=== PATIENT | male | born 1935 | race Caucasian/White ===

== ENCOUNTER 2016-10-30 09:29 | Outpatient (CLI) | payer MEDICARE, OTHER ==
[2016-10-30] MEDS ORDERED: REGADENOSON 0.4 MG/5 ML SYRINGE IVP ONE (14:45)
== END 2016-10-30 09:30 | disposition home or self-care (01) ==
DX: I48.91 Unspecified atrial fibrillation (principal); I49.3 Ventricular premature depolarization; I65.23 Occlusion and stenosis of bilateral carotid arteries; I25.118 Atherosclerotic heart disease of native coronary artery with other forms of angina pectoris; I77.9 Disorder of arteries and arterioles, unspecified; Z95.0 Presence of cardiac pacemaker
CPT/HCPCS: 78452; 93017; 93880; A9500; J2785

== ENCOUNTER 2017-02-11 15:05 | Outpatient (CLI) | payer MEDICARE, OTHER ==
[2017-02-11 19:18] LABS: CALCIUM 8.7 mg/dL (8.5-10.3); CREATININE 1.1 mg/dL (0.6-1.2); POTASSIUM 4.6 mmol/L (3.5-5.0)
== END 2017-02-11 15:06 | disposition home or self-care (01) ==
LOC: LAB.N 15:05
DX: E87.5 Hyperkalemia (principal)
CPT/HCPCS: 36415; 80048

== ENCOUNTER 2017-05-29 11:18 | Outpatient (CLI) | payer MEDICARE, OTHER | END 2017-05-29 11:19 | disposition critical access hospital (66) | LOC: EMS 11:18 | PROVIDERS: ATTEND Surgery | DX: M25.551 Pain in right hip (principal); W10.9XXA Fall (on) (from) unspecified stairs and steps, initial encounter | CPT/HCPCS: A0425; A0429 ==

== ENCOUNTER 2017-05-29 11:41 | Inpatient (IN) | payer MEDICARE, OTHER ==
[2017-05-29] MEDS ORDERED: MORPHINE 2 MG/ML SYRINGE IVP STA ×3 (11:48→13:37)
[2017-05-29] MEDS ORDERED: SODIUM CHLORIDE 0.9% 1,000 ML IV ONE (11:48)
--- NOTE | 2017-05-29 12:58 | ED Physician Documentation ---
History of Present Illness - Stated complaint Stated Complaint: GROIN PAIN SP FALL - Chief complaint Chief Complaint: Trauma Hd/Nk - Additonal information Additional information: hx from pt 82 male fell down cement stairs at [employer] yesterday hit head but no LOC PÉREZ or neck pain is on plavix mostly hurt R hip friends gave him a walker and he was able to get home but today pain is too severe to walk Review of Systems Constitutional: denies: Fever Cardiac: denies: Chest pain / pressure Respiratory: denies: Dyspnea, Cough GI: denies: Abdominal Pain Musculoskeletal: reports: Extremity pain. denies: Neck pain Neurologic: reports: Head injury. denies: Focal weakness, Numbness, Headache Endocrine: reports: Easy bruising / bleeding (plavix) Immunocompromised: denies: Immunocompromised PD PAST MEDICAL HISTORY - Past Medical History Cardiovascular: Hypertension, High cholesterol, Coronary artery disease, Arrhythmia GI: GERD, Ulcers HEENT: Chronic hearing loss - Past Surgical History Past Surgical History: Yes General: Cholecystectomy Cardiovascular: Pacemaker, AICD, Angioplasty, Other - Present Medications Home Medications: Ambulatory Orders Medication Instructions Recorded Confirmed Amiodarone HCl [Pacerone] 100 mg PO DAILY 10/22/13 05/29/17 Aspirin [Donald] 325 mg PO DAILY 10/22/13 05/29/17 Esomeprazole Magnesium [Nexium] 40 mg PO DAILY 10/22/13 05/29/17 Finasteride 5 mg PO DAILY 10/22/13 05/29/17 Isosorbide Mononitrate ER [Imdur] 50 mg PO DAILY 10/22/13 05/29/17 Metoprolol Tartrate 50 mg PO DAILY 10/22/13 05/29/17 Simvastatin 40 mg PO DAILY 10/22/13 05/29/17 oxyCODONE [Roxicodone] 10 mg PO DAILY PRN 10/22/13 05/29/17 oxyCODONE ER [OxyCONTIN] 10 mg PO DAILY 05/29/17 05/29/17 - Allergies Allergies/Adverse Reactions: Allergies Allergy/AdvReac Type Severity Reaction Status Date / Time No Known Drug Allergies Allergy Verified 10/22/13 10:07 - Social History Does the pt smoke?: No Smoking Status: Never smoker Does the pt drink ETOH?: No Does the pt have substance abuse?: No - Immunizations Immunizations are current?: Yes - POLST Patient has POLST: Yes PD ED PE NORMAL - Vitals Vital signs reviewed: Yes - General General: Alert and oriented X 3 - HEENT HEENT: Atraumatic - Neck Neck: No bony TTP - Cardiac Cardiac: RRR - Respiratory Respiratory: No respiratory distress, Clear bilaterally - Abdomen Abdomen: Soft, Non tender - Derm Derm: Normal color - Extremities Extremities: Other (R hip externall roatated not short, TTP medial and greater troch, MSV intact) - Neuro Neuro: Alert and oriented X 3 Eye Opening: Spontaneous Motor: Obeys Commands Verbal: Oriented GCS Score: 15 Results - Vitals Vitals: Vital Signs - 24 hr 05/29/17 05/29/17 11:45 12:14 Temperature 37.0 C 37 C Heart Rate 72 66 Respiratory 16 20 Rate Blood Pressure 170/68 H 166/62 H O2 Saturation 91 L 97 Oxygen O2 Source Nasal cannula - Labs Labs: Laboratory Tests 05/29/17 05/29/17 05/29/17 13:20 13:20 13:20 WBC 11.8 H RBC 4.72 Hgb 14.1 Hct 41.8 L MCV 88.5 MCH 29.9 MCHC 33.8 RDW 13.6 Plt Count 200 MPV 7.4 Neut # 10.1 H Lymph # 0.7 L [place] # 0.7 Eos # 0.2 Baso # 0.0 Absolute Nucleated RBC 0.00 Nucleated RBC % 0.0 PT INR Sodium 136 Potassium 3.9 Chloride 102 Carbon Dioxide 25 Anion Gap 9.0 BUN 17 Creatinine 1.0 Estimated GFR (MDRD) 72 L Glucose 119 H Calcium 8.6 Blood Type A NEGATIVE Antibody Screen NEGATIVE 05/29/17 13:20 WBC RBC Hgb Hct MCV MCH MCHC RDW Plt Count MPV Neut # Lymph # [place] # Eos # Baso # Absolute Nucleated RBC Nucleated RBC % PT 13.1 H INR 1.2 Sodium Potassium Chloride Carbon Dioxide Anion Gap BUN Creatinine Estimated GFR (MDRD) Glucose Calcium Blood Type Antibody Screen - Rads (name of study) hip Radiology: See rad report (R subcapital fx) CTH Radiology: See rad report (no acute) CTCS Radiology: See rad report (no fx) PD MEDICAL DECISION MAKING - ED course ED course: pt with sig cardiac hx s/p fall with hip fx paged hospitalist at 215 paged ortho at 235 hospitalist to admit with ortho consult advised ortho of plavix Departure - Departure Disposition: 66 [facility] DC/Xfer Clinical Impression: Hip fracture Qualifiers: Encounter type: initial encounter Fracture type: closed Laterality: right Qualified Code(s): S72.001A - Fracture of unspecified part of neck of right femur, initial encounter for closed fracture Discharge Date/Time: 05/29/17 16:06
[2017-05-29 13:34] LABS: BASOPHILS % (AUTO) 0.3 %; EOSINOPHILS # (AUTO) 0.2 10^3/uL (0.0-0.7); EOSINOPHILS % (AUTO) 1.9 %; HGB - HEMOGLOBIN 14.1 g/dL (14.0-18.0); LYMPHOCYTES # (AUTO) 0.7 10^3/uL (1.5-3.5); LYMPHOCYTES % (AUTO) 6.1 %; MEAN CORPUSCULAR HEMOGLOBIN 29.9 pg (27.0-31.0); MEAN CORPUSCULAR HGB CONC 33.8 g/dL (32.0-36.0); MEAN CORPUSCULAR VOLUME 88.5 fL (80.0-94.0); MEAN PLATELET VOLUME 7.4 fL (7.4-11.4); MONOCYTES # (AUTO) 0.7 10^3/uL (0.0-1.0); MONOCYTES % (AUTO) 6.1 %; NEUTROPHILS # (AUTO) 10.1 10^3/uL (1.5-6.6); NEUTROPHILS % (AUTO) 85.6 %; PLT - PLATELET COUNT 200 10^3/uL (130-450); RED BLOOD COUNT 4.72 10^6/uL (4.70-6.10); RED CELL DISTRIBUTION WIDTH 13.6 % (12.0-15.0); WHITE BLOOD COUNT 11.8 x10^3/uL (4.8-10.8)
[2017-05-29 13:48] LABS: CALCIUM 8.6 mg/dL (8.5-10.3)
--- NOTE | 2017-05-29 14:04 | XRAY Report ---
EXAM: RIGHT HIP AND PELVIS RADIOGRAPHY EXAM DATE: 05/29/2017 01:44 PM. HISTORY: Fall R hip pain. COMPARISONS: None. TECHNIQUE: 1 view of the pelvis and 1 view of the hip. FINDINGS: Bones: Impacted subcapital fracture right femoral neck. Otherwise unremarkable. Joints: Hip joint space is well-preserved with mild marginal lipping. Unremarkable SI joints and pubi c symphysis. Soft Tissues: Vascular calcifications. IMPRESSION: Right subcapital fracture. [facility] Referring Provider Line: [phone] SITE ID: [id number]
--- NOTE | 2017-05-29 14:06 | XRAY Preliminary Report ---
Exam: XR CHEST 1 VIEW IMPRESSION: Cardiovascular fullness. No definite acute disease. [facility] SITE ID: [id number]
--- NOTE | 2017-05-29 14:06 | XRAY Report ---
EXAM: CHEST RADIOGRAPHY EXAM DATE: 05/29/2017 01:44 PM. CLINICAL HISTORY: Preop. COMPARISON: 12/12/2011. TECHNIQUE: 1 view. FINDINGS: Lungs/Pleura: Mildly hyperexpanded. Diffuse prominence of lung markings. Atelectasis or scarring in r ight midlung zone laterally. No definite localized infiltrate, consolidation, effusion, or pneumothor ax. Mediastinum: Moderate cardiomegaly, probably unchanged. Diffuse vascular fullness, at least partially related to supine technique. Other: Indwelling defibrillator on the left with intact leads. Degenerative changes. IMPRESSION: Cardiovascular fullness. No definite acute disease. [facility] Referring Provider Line: [phone] SITE ID: [id number]
--- NOTE | 2017-05-29 14:28 | CT Report ---
EXAM: CT HEAD EXAM DATE: 05/29/2017 01:54 PM. CLINICAL HISTORY: Fall on plavix. COMPARISON: None. TECHNIQUE: Multiaxial CT images were obtained from the foramen magnum to the vertex. Reformats: Coron al. IV contrast: None. In accordance with CT protocol optimization, one or more of the following dose reduction techniques w ere utilized for this exam: automated exposure control, adjustment of mA and/or KV based on patient s ize, or use of iterative reconstructive technique. FINDINGS: Parenchyma: No intraparenchymal hemorrhage. No evidence of mass, midline shift, or CT findings of inf arction. Merino-white differentiation is distinct. There are periventricular and deep white matter low attenuating foci consistent with chronic microvascular angiopathic changes. Extraaxial Spaces: Normal for age. No subdural or epidural collections identified. Ventricles: There is parenchymal volume loss and ex vacuo dilation of ventricles. Sinuses and Orbits: Imaged paranasal sinuses, orbits, and mastoids show no significant abnormality. Bones: No evidence of fracture or calvarial defect. IMPRESSION: No evidence of acute intracranial process or calvarial fracture [facility] Referring Provider Line: [phone] SITE ID: [id number]
--- NOTE | 2017-05-29 14:28 | CT Preliminary Report ---
Exam: CT HEAD W/O IMPRESSION: No evidence of acute intracranial process or calvarial fracture [facility] SITE ID: [id number]
--- NOTE | 2017-05-29 14:33 | CT Report ---
EXAM: CT CERVICAL SPINE WITHOUT CONTRAST DATE: 05/29/2017 02:02 PM. HISTORY: Fall HI distracting injury. COMPARISONS: None. TECHNIQUE: Thin-section axial images were acquired of the cervical spine without contrast. Post-proce ssing: Coronal and sagittal reformats. Other: None. In accordance with CT protocol optimization, one or more of the following dose reduction techniques w ere utilized for this exam: automated exposure control, adjustment of mA and/or KV based on patient s ize, or use of iterative reconstructive technique. FINDINGS: Alignment: No scoliosis or spondylolisthesis. Bones: No fracture or bone lesion. Interspace Levels/Facets: C1-C2: Unremarkable. C2-C3: Moderate anterior osteophytes. C3-C4: Osteophytes cause narrowing of the bony neural foramina, mild right and moderate on the left. C4-C5: There is mild to moderate disk space narrowing. There are moderate to marked anterior osteophy derrek. Osteophytes narrow the bony neural foramina, moderate to severe on the right and moderate on the left. C5-C6: There is moderate disk space narrowing with moderate to marked anterior osteophytes. Osteophyt es cause moderate narrowing of the bony neural foramina. C6-C7: Osteophytes cause mild narrowing of the bony neural foramina. C7-T1: There are moderate to marked anterior osteophytes. Musculature: Normal. No fatty atrophy. Other: The paravertebral and prevertebral soft tissues are unremarkable. The lung apices are not imag ed. IMPRESSION: Moderate to severe cervical spondylosis. No evidence of acute fracture. [facility] Referring Provider Line: [phone] SITE ID: [id number]
[2017-05-29] MEDS ORDERED: PROCHLORPERAZINE 10 MG/2 ML VIAL IVP PRN (14:47)
[2017-05-29] MEDS ORDERED: ACETAMINOPHEN 325 MG TABLET PO PRN (14:47)
[2017-05-29] MEDS ORDERED: SODIUM CHLORIDE FLUSH 0.9% 10 ML SYRINGE IVP PRN (14:47)
[2017-05-29] MEDS ORDERED: ZOLPIDEM 5 MG TABLET PO PRN (14:47)
[2017-05-29] MEDS: HYDROmorphone 1 MG/ML SYRINGE IVP PRN ×3 (16:08→21:18)
[2017-05-29] MEDS: DEXTROSE 5%-0.45% NACL 1,000 ML IV SCH (16:19)
[2017-05-29 18:25] LABS: INR 1.2 (0.8-1.2); PT - PROTHROMBIN TIME 13.1 secs (9.9-12.6)
[2017-05-29] MEDS: HYDROcod/ACETAM 5/325 MG TABLET PO PRN (21:17)
[2017-05-29] MEDS: ATORVASTATIN 40 MG TABLET PO SCH (21:17)
[2017-05-29] MEDS: SODIUM CHLORIDE FLUSH 0.9% 10 ML SYRINGE IVP SCH (21:18)
[2017-05-30] MEDS: HYDROcod/ACETAM 5/325 MG TABLET PO PRN ×3 (01:13→21:02)
[2017-05-30] MEDS: SODIUM CHLORIDE FLUSH 0.9% 10 ML SYRINGE IVP SCH ×3 (05:44→22:51)
[2017-05-30] MEDS ORDERED: ceFAZolin 1 GM in SODIUM CHLORIDE 0.9% 100ML 100 ML IV SCH (06:00)
[2017-05-30] MEDS: HYDROmorphone 1 MG/ML SYRINGE IVP PRN (06:25)
[2017-05-30] MEDS: METOPROLOL TARTRATE 50 MG TABLET PO SCH (07:58)
[2017-05-30] MEDS ORDERED: SODIUM CHLORIDE 0.9% 1,000 ML IV ONE (08:11)
[2017-05-30] MEDS ORDERED: BUPIVACAINE 0.25%-EPI 1:200000 PF 30 ML VIAL SUBQ ONE (08:55)
[2017-05-30] MEDS ORDERED: KETOROLAC 30 MG/ML VIAL IVP ONE ×2 (08:57→09:00)
[2017-05-30] MEDS ORDERED: MORPHINE PF 10 MG/10 ML AMP SUBQ ONE (08:59)
[2017-05-30] MEDS ORDERED: PROPOFOL 200 MG/20 ML VIAL IVP ONE (09:00)
[2017-05-30] MEDS ORDERED: TRANEXAMIC ACID 1,000 MG/10 ML VIAL IV ONE (09:00)
[2017-05-30] MEDS ORDERED: KETAMINE 500 MG/10 ML VIAL IVP ONE (09:00)
[2017-05-30] MEDS ORDERED: ceFAZolin 1 GM VIAL IV ONE (09:00)
[2017-05-30] MEDS ORDERED: PHENYLEPHRINE 50 MG/5 ML VIAL IV ONE (09:00)
[2017-05-30] MEDS ORDERED: MIDAZOLAM 2 MG/2 ML VIAL IVP ONE (09:00)
[2017-05-30] MEDS ORDERED: MORPHINE 10 MG/ML VIAL IVP ONE (09:00)
[2017-05-30] MEDS ORDERED: LIDOCAINE-MPF 2% 5 ML VIAL IM ONE (09:00)
[2017-05-30] MEDS ORDERED: ENOXAPARIN 40 MG/0.4 ML SYRINGE SUBQ SCH (09:00)
[2017-05-30] MEDS ORDERED: ePHEDrine 50 MG/ML AMP IVP ONE (09:00)
[2017-05-30] MEDS ORDERED: SODIUM CHLORIDE 0.9% 10 ML VIAL IV ONE (09:00)
[2017-05-30] MEDS ORDERED: ONDANSETRON 4 MG/2 ML VIAL IVP PRN (10:10)
[2017-05-30] MEDS ORDERED: ACETAMINOPHEN 325 MG TABLET PO PRN (10:10)
[2017-05-30] MEDS ORDERED: SODIUM CHLORIDE FLUSH 0.9% 10 ML SYRINGE IVP PRN (10:10)
[2017-05-30] MEDS ORDERED: ACETAMINOPHEN 1,000 MG/100 ML 100 ML IV PRN (10:10)
[2017-05-30] MEDS ORDERED: PROCHLORPERAZINE 10 MG/2 ML VIAL IVP PRN (10:10)
--- NOTE | 2017-05-30 10:26 | POST OP PROGRESS NOTE ---
Subjective - General Admit Date: 05/29/17 Procedure Date: 05/30/17 Post Op Days: 0 Procedure Performed: right hip in situ cannulated screw fixation of valgus impacted femoral neck - Review of Systems Wound/Incisions: positive: Dressing dry and intact - Other Other Information/Narrative: OPERATIVE REPORT PATIENT NAME: Jorge Henry MR#: [id number] Date of Surgery: 05/30/2017 PREOPERATIVE DIAGNOSIS: Closed, stable Right hip femoral neck fracture, pathologic secondary to osteoporosis. POSTOPERATIVE DIAGNOSIS: Same. PROCEDURE: 1. Right hip fluoroscopic exam under anesthesia demonstrating stable femoral neck fracture. 2. In situ percutaneous pinning of femoral neck fracture. POSTOPERATIVE PLAN: 1. WEIGHTBEARING: Weight bearing as tolerated (WBAT) 2. NO NEED FOR HIP DISLOCATION PRECAUTIONS 3. DVT PROPHYLAXIS: Lovenox 40mg sc daily x 14days, followed by ECASA 325mg po daily [id number] (after this period ECASA should be discontinued or the patient should go back to the normal pre-operative dose). SURGEON: Joe Carver M.D. BULL FIDDLE PLAYER: none ANESTHESIA: spinal ESTIMATED BLOOD LOSS: 15mL. Specimens: None. DRAIN: none. COMPLICATIONS: None. IMPLANTS USED: Synthes 7.3mm cannulated partially threaded screws x3. Lengths were as follows : inferior-central screw: 90mm, posterior-superior screw: 85mm, and anterior- superior screw: 85mm. INDICATIONS: The patient is an 82 year old male with the above diagnosis. The alternatives, indications, benefits and possible risks of hip screw fixation and other surgeries, as previously detailed, were explained to the patient and family at length who indicated understanding of all of the above and wished to proceed. The option of further non-operative care was discussed. The possibility of linda -operative complications leading to loss of fixation, disability and was explained. All questions were answered and no guarantees with respect to final outcome were made. FINDINGS: Stable femoral neck fracture, intact acetabulum. Decreased bone quality was noted intraoperatively. Satisfactory purchase of the screws was achieved. DESCRIPTION OF PROCEDURE: After patient was brought in the operating room, surgical briefing was carried out in accordance with hospital policy with all members of the surgical team, patient, chart, x-rays and marking in agreement as to surgical site and plan. Prophylactic antibiotic was given, and anesthesia was satisfactorily achieved. The patient was placed on the fracture table in the supine position, and the uninjured lower extremity placed in a well-padded well-leg shields with the hip 70 degrees flexed, 20 degrees abducted and 20 degrees externally rotated. The foot and ankle of the injured extremity were well-padded and placed in the traction device. Stability of the fracture was confirmed by applying various combinations of axial traction, abduction, adduction, and rotation under fluoroscopic guidance (no movement of the fracture was seen). The lateral surface of the hip was then sterilely prepped and draped from below the knee to the umibillicus using a vertical isolation drape. Under fluroscopic visualization, the trajectory for the pins was determined and marked on the drapes with a pen. Using AP and lateral fluoroscopic imaging, a guide pin was introduced through the skin into the lateral femur just below the vastus ridge, along the inferior aspect of the femoral neck, and across the fracture site into the femoral head. Two additional percutaneous pins were placed parallel to the first, one the posterosuperior aspect of the neck and another anteriorly and superiorly. The placement was verified in both AP and lateral projections. The guide pins were measured according to the digital technician' s instructions. Next the self-drilling, self-tapping, cannulated, partially- threaded screws were placed. Screw position was verified with orthogonal fluoroscopic projections as well as with continuous fluoro to confirm that the screws did not penetrate the joint. The small stab incisions were irrigated with copious amounts of saline and then closed with 2-0 Prolene. A sterile nonadhesive bulky compressive dressing was applied. At the termination of the procedure, the patient's toes were pink with brisk capillary refill. Final sponge and needle counts as reported by the nursing staff were even. After the anesthesia team gave the okay, the patient was transferred to the recovery room awake, stable, following commands, in no apparent distress. Joe Carver MD
[2017-05-30] MEDS: ASPIRIN 325 MG TABLET PO SCH (11:34)
[2017-05-30] MEDS: ISOSORBIDE MONONITRATE ER 30 MG TABLET PO SCH (11:34)
[2017-05-30] MEDS: DEXTROSE 5%-0.45% NACL 1,000 ML IV SCH ×2 (11:35→23:43)
[2017-05-30] MEDS: FINASTERIDE 5 MG TABLET PO SCH (11:35)
[2017-05-30] MEDS: LISINOPRIL 5 MG TABLET PO SCH (11:35)
[2017-05-30] MEDS: FAMOTIDINE 20 MG TABLET PO SCH (11:35)
[2017-05-30] MEDS: POLYETHYLENE GLYCOL 3350 17 GM PACKET PO SCH (11:43)
[2017-05-30] MEDS: AMIODARONE 200 MG TABLET PO SCH (11:43)
[2017-05-30] MEDS ORDERED: SODIUM CHLORIDE FLUSH 0.9% 10 ML SYRINGE IVP SCH (14:00)
--- NOTE | 2017-05-30 15:28 | XRAY Preliminary Report ---
Exam: FL OR C-ARM PROCEDURE IMPRESSION: Fluoroscopic guidance provided for percutaneous pinning right hip. Total fluoroscopy time : 44 seconds. Number of images: 0. [facility] SITE ID: [id number]
--- NOTE | 2017-05-30 15:29 | XRAY Report ---
EXAM: FLUOROSCOPIC GUIDANCE EXAM DATE: 05/30/2017 10:03 AM. CLINICAL HISTORY: Percutaneous pinning right hip. COMPARISON: None. FINDINGS: Please refer to impression IMPRESSION: Fluoroscopic guidance provided for percutaneous pinning right hip. Total fluoroscopy time : 44 seconds. Number of images: 0. [facility] Referring Provider Line: [phone] SITE ID: [id number]
[2017-05-30] MEDS: ceFAZolin 2 GM/50 ML 2 GM/50 ML BAG IV SCH ×2 (16:05→23:44)
--- NOTE | 2017-05-30 17:46 | PROVIDER PROGRESS NOTE ---
Assessment/Plan - Problem List (1) Subcapital fracture of right hip Qualifiers: Encounter type: subsequent encounter Fracture type: closed Assessment/Plan: Patient is POD# 0 s/p percutaneous pinning of the right hip Pain controlled Seen by PT today and had a lot of trouble needs to go up 2 stairs at home PT is recommending SNF currently but will re-assess tomorrow (2) Hypertension Qualifiers: Hypertension type: essential hypertension Qualified Code(s): I10 - Essential (primary) hypertension Assessment/Plan: BP well controlled Continue home meds Stable (3) BPH (benign prostatic hyperplasia) Assessment/Plan: Continued home meds Stable (4) GERD (gastroesophageal reflux disease) Assessment/Plan: ON PPI No symptoms Stable (5) Hyperlipidemia Assessment/Plan: Continued home dose of statin Stable (6) Atrial fibrillation Qualifiers: Atrial fibrillation type: chronic Qualified Code(s): I48.2 - Chronic atrial fibrillation Assessment/Plan: Patient has AICD with pacer Patient on metoprolol will continue Not on coumadin (7) CAD (coronary artery disease) Assessment/Plan: On plavix, metoprolol and statin Stable Echo shows normal EF Stress test less than 6 months ago was normal - Current Meds Current Meds: Current Medications Generic Name Dose Route Start Last Admin Trade Name Freq PRN Reason Stop Dose Admin Acetaminophen/Hydrocodone Bitart 1 tab 05/29/17 14:47 05/30/17 16:10 [place] 5/325 PO 1 tab Q4HR PRN Administration Pain 5 to 7 Amiodarone HCl 100 mg 05/30/17 09:00 05/30/17 11:43 Pacerone PO 100 mg DAILY OMAR Administration Aspirin 325 mg 05/30/17 08:00 05/30/17 11:34 Donald PO 325 mg DAILYWM OMAR Administration Atorvastatin Calcium 40 mg 05/29/17 21:00 05/29/17 21:17 Lipitor PO 40 mg QPM OMAR Administration Famotidine 20 mg 05/30/17 09:00 05/30/17 11:35 Pepcid PO 20 mg DAILY OMAR Administration Finasteride 5 mg 05/30/17 09:00 05/30/17 11:35 Proscar PO 5 mg DAILY OMAR Administration Hydromorphone HCl 0.5 mg 05/29/17 14:47 05/30/17 06:25 Dilaudid Inj Syringe IVP 0.5 mg Q2H PRN Administration Pain 8 to 10 Dextrose/Sodium Chloride 1,000 mls @ 30 mls/hr 05/29/17 16:00 05/30/17 11:35 D5.45ns IV 30 mls/hr .[id number] OMAR Administration Cefazolin Sodium/Dextrose 2 gm in 50 mls @ 100 mls/hr 05/30/17 16:00 16:48 Ancef 2 Gm/50 Ml IV 05/31/17 00:29 Infused Q8H OMAR Infusion Isosorbide Mononitrate 30 mg 05/30/17 09:00 05/30/17 11:34 Imdur PO 30 mg DAILY OMAR Administration Lisinopril 10 mg 05/30/17 09:00 05/30/17 11:35 Zestril PO 10 mg DAILY OMAR Administration Metoprolol Tartrate 50 mg 05/30/17 09:00 05/30/17 07:58 Lopressor PO 50 mg DAILY OMAR Administration Polyethylene Glycol 17 gm 05/30/17 09:00 05/30/17 11:43 Miralax PO 17 gm DAILY OMAR Administration Sodium Chloride 10 ml 05/29/17 22:00 05/30/17 11:44 Normal Saline Flush 0.9% IVP 10 ml Q8HR MOAR Administration - Lab Result Lab results reviewed: Yes Fish Bone Diagrams: 05/29/17 13:20 05/29/17 13:20 - Diagnostic Imaging Results Diagnostic Imaging Results: Final report reviewed - Additional Planning Condition/Complexity: Stable My Orders: My Active Orders 05/30/17 Evaluate and Treat PT [PT] Routine Consult/Specialty: Other Plan Discussed with:: Patient, Family Time Spent: 31-60 minutes Subjective - Subjective Patient Reports: Pain (Right hip improved) Nursing Reports: No Complaints Objective Vital Signs: Vital Signs - 24 hr 05/29/17 05/30/17 05/30/17 19:47 00:43 06:00 Temperature 36.8 C 36.7 C 36.4 C L Heart Rate [ 71 72 71 Brachial] Heart Rate [ Supine] Respiratory 18 16 18 Rate Blood Pressure 164/52 H 149/50 H 170/70 H [Right Brachial artery] Blood Pressure [Supine] O2 Saturation 94 95 94 05/30/17 05/30/17 05/30/17 06:42 08:08 10:00 Temperature 36.1 C L Heart Rate [ 71 Brachial] Heart Rate [ Supine] Respiratory 22 Rate Blood Pressure 153/55 H 156/116 H [Right Brachial artery] Blood Pressure [Supine] O2 Saturation 93 95 05/30/17 05/30/17 05/30/17 10:05 10:10 10:15 Temperature Heart Rate [ Brachial] Heart Rate [ Supine] Respiratory Rate Blood Pressure [Right Brachial artery] Blood Pressure [Supine] O2 Saturation 96 95 97 05/30/17 05/30/17 05/30/17 10:22 10:35 11:18 Temperature 36.2 C L 36.4 C L Heart Rate [ 61 60 Brachial] Heart Rate [ Supine] Respiratory 16 16 Rate Blood Pressure 155/49 H 158/57 H [Right Brachial artery] Blood Pressure [Supine] O2 Saturation 95 94 94 05/30/17 05/30/17 05/30/17 11:40 12:40 12:59 Temperature 36.2 C L 36.4 C L Heart Rate [ 60 61 Brachial] Heart Rate [ 62 Supine] Respiratory 18 16 Rate Blood Pressure 152/56 H 118/41 L [Right Brachial artery] Blood Pressure 152/82 H [Supine] O2 Saturation 96 94 05/30/17 15:59 Temperature 36.7 C Heart Rate [ 67 Brachial] Heart Rate [ Supine] Respiratory 16 Rate Blood Pressure 140/51 H [Right Brachial artery] Blood Pressure [Supine] O2 Saturation 92 Oxygen O2 Source Nasal cannula I&O (Last 24 Hrs): Intake and Output Totals x24h 05/28/17 05/29/17 05/30/17 23:59 23:59 23:59 Intake Total 740 1910.5 Output Total 550 700 Balance 190 1210.5 General: Alert, Oriented x3, Cooperative, No acute distress HEENT: Atraumatic, PERRLA, EOMI, Mucous membr. moist/pink Neck: Supple, No JVD, No thyromegaly, +2 carotid pulse wo bruit, No LAD Lymphatic: no adenopathy Neuro: Alert, Non Focal, CN 2-12 Grossly Intact, Oriented Times 3 Cardiovascular: Regular rate, No murmurs Respiratory: Chest non-tender, No respiratory distress, Breath sounds nml Abdomen: Normal bowel sounds, Soft, No tenderness, No hepatospenomegaly Extremities: No clubbing, No cyanosis, No edema, Normal pulses, Other (Right hip swelling, improved ROM) Skin: No rashes, No breakdown - Results Results: Laboratory Results WBC 11.8 x10^3/uL (4.8-10.8) H 05/29/17 13:20 RBC 4.72 10^6/uL (4.70-6.10) 05/29/17 13:20 Hgb 14.1 g/dL (14.0-18.0) 05/29/17 13:20 Hct 41.8 % (42.0-52.0) L 05/29/17 13:20 MCV 88.5 fL (80.0-94.0) 05/29/17 13:20 MCH 29.9 pg (27.0-31.0) 05/29/17 13:20 MCHC 33.8 g/dL (32.0-36.0) 05/29/17 13:20 RDW 13.6 % (12.0-15.0) 05/29/17 13:20 Plt Count 200 10^3/uL (130-450) 05/29/17 13:20 MPV 7.4 fL (7.4-11.4) 05/29/17 13:20 Neut # 10.1 10^3/uL (1.5-6.6) H 05/29/17 13:20 Lymph # 0.7 10^3/uL (1.5-3.5) L 05/29/17 13:20 [place] # 0.7 10^3/uL (0.0-1.0) 05/29/17 13:20 Eos # 0.2 10^3/uL (0.0-0.7) 05/29/17 13:20 Baso # 0.0 10^3/uL (0.0-0.1) 05/29/17 13:20 Absolute Nucleated RBC 0.00 x10^3/uL 05/29/17 13:20 Nucleated RBC % 0.0 /100WBC 05/29/17 13:20 PT 13.1 secs (9.9-12.6) H 05/29/17 13:20 INR 1.2 (0.8-1.2) 05/29/17 13:20 Sodium 136 mmol/L (135-145) 05/29/17 13:20 Potassium 3.9 mmol/L (3.5-5.0) 05/29/17 13:20 Chloride 102 mmol/L (101-111) 05/29/17 13:20 Carbon Dioxide 25 mmol/L (21-32) 05/29/17 13:20 Anion Gap 9.0 (6-13) 05/29/17 13:20 BUN 17 mg/dL (6-20) 05/29/17 13:20 Creatinine 1.0 mg/dL (0.6-1.2) 05/29/17 13:20 Estimated GFR (MDRD) 72 (>89) L 05/29/17 13:20 Glucose 119 mg/dL (70-100) H 05/29/17 13:20 Calcium 8.6 mg/dL (8.5-10.3) 05/29/17 13:20 Blood Type A NEGATIVE 05/29/17 13:20 Antibody Screen NEGATIVE 05/29/17 13:20
--- NOTE | 2017-05-30 17:57 | XRAY Report ---
EXAM: RIGHT HIP RADIOGRAPHY EXAM DATE: 05/30/2017 10:02 AM. CLINICAL HISTORY: RIGHT HIP PINNING. COMPARISON: 05/29/2017. TECHNIQUE: 2 views. FINDINGS: Please refer to impression IMPRESSION: Two Intraoperative images during right hip surgery showing placement of 3 cannulated femo ral neck screws. [facility] Referring Provider Line: [phone] SITE ID: [id number]
[2017-05-30] MEDS: ATORVASTATIN 40 MG TABLET PO SCH (21:02)
[2017-05-30] MEDS: ENOXAPARIN 40 MG/0.4 ML SYRINGE SUBQ SCH (21:02)
[2017-05-31] MEDS: HYDROcod/ACETAM 5/325 MG TABLET PO PRN ×3 (03:10→19:53)
[2017-05-31] MEDS: SODIUM CHLORIDE FLUSH 0.9% 10 ML SYRINGE IVP SCH ×3 (05:51→20:23)
[2017-05-31 07:16] LABS: BASOPHILS % (AUTO) 0.3 %; EOSINOPHILS # (AUTO) 0.2 10^3/uL (0.0-0.7); EOSINOPHILS % (AUTO) 1.9 %; HGB - HEMOGLOBIN 12.1 g/dL (14.0-18.0); LYMPHOCYTES # (AUTO) 0.8 10^3/uL (1.5-3.5); LYMPHOCYTES % (AUTO) 8.6 %; MEAN CORPUSCULAR HEMOGLOBIN 30.2 pg (27.0-31.0); MEAN CORPUSCULAR HGB CONC 34.2 g/dL (32.0-36.0); MEAN CORPUSCULAR VOLUME 88.3 fL (80.0-94.0); MEAN PLATELET VOLUME 7.4 fL (7.4-11.4); MONOCYTES # (AUTO) 0.7 10^3/uL (0.0-1.0); MONOCYTES % (AUTO) 7.4 %; NEUTROPHILS # (AUTO) 7.7 10^3/uL (1.5-6.6); NEUTROPHILS % (AUTO) 81.8 %; PLT - PLATELET COUNT 172 10^3/uL (130-450); RED BLOOD COUNT 4.02 10^6/uL (4.70-6.10); RED CELL DISTRIBUTION WIDTH 13.7 % (12.0-15.0); WHITE BLOOD COUNT 9.5 x10^3/uL (4.8-10.8)
[2017-05-31 07:29] LABS: ALBUMIN 2.8 g/dL (3.2-5.5); ALBUMIN/GLOBULIN RATIO 1.1 (1.0-2.2); ALKALINE PHOSPHATASE 51 IU/L (42-121); ALT ALANINE AMINOTRANSFERASE 16 IU/L (10-60); AST ASPARTATE AMINOTRANSFERASE 16 IU/L (10-42); BILIRUBIN,TOTAL 1.5 mg/dL (0.2-1.0); BUN - BLOOD UREA NITROGEN 19 mg/dL (6-20); CALCIUM 8.1 mg/dL (8.5-10.3); CARBON DIOXIDE - CO2 22 mmol/L (21-32); CHLORIDE 100 mmol/L (101-111); CREATININE 0.9 mg/dL (0.6-1.2); GFR - MDRD 81 (>89); GLUCOSE 143 mg/dL (70-100); MAGNESIUM 1.8 mg/dL (1.7-2.8); PHOSPHORUS 3.5 mg/dL (2.5-4.6); SODIUM 131 mmol/L (135-145); TOTAL PROTEIN 5.4 g/dL (6.7-8.2)
[2017-05-31 07:42] LABS: VBG PH 7.451 (7.31-7.41)
[2017-05-31] MEDS: METOPROLOL TARTRATE 50 MG TABLET PO SCH (08:56)
[2017-05-31] MEDS: FINASTERIDE 5 MG TABLET PO SCH (08:56)
[2017-05-31] MEDS: LISINOPRIL 5 MG TABLET PO SCH (08:56)
[2017-05-31] MEDS: AMIODARONE 200 MG TABLET PO SCH (08:56)
[2017-05-31] MEDS: DOCUSATE SODIUM 250 MG CAPSULE PO SCH (08:56)
[2017-05-31] MEDS: FAMOTIDINE 20 MG TABLET PO SCH (08:57)
[2017-05-31] MEDS: SENNA 8.6 MG TABLET PO SCH (08:57)
[2017-05-31] MEDS: ASPIRIN 325 MG TABLET PO SCH (08:57)
[2017-05-31] MEDS: ISOSORBIDE MONONITRATE ER 30 MG TABLET PO SCH (08:57)
[2017-05-31] MEDS: POLYETHYLENE GLYCOL 3350 17 GM PACKET PO SCH (08:57)
[2017-05-31] MEDS: HYDROmorphone 1 MG/ML SYRINGE IVP PRN (10:18)
--- NOTE | 2017-05-31 11:17 | PROVIDER PROGRESS NOTE ---
Subjective - General Admit Date: 05/29/17 Procedure Date: 05/30/17 Post Op Days: 1 Procedure Performed: right hip in situ cannulated screw fixation of valgus impacted femoral neck - Review of Systems Wound/Incisions: positive: Dressing dry and intact, No drainage Drain Type: none Functional Status: positive: 1, 2, 3, 4 General: positive: Weakness HEENT: positive: No symptoms Pulmonary: positive: No symptoms Cardiovascular: positive: No symptoms Gastrointestinal: positive: No symptoms Genitourinary: positive: No symptoms Musculoskeletal: positive: Other (groin pain improving) Skin: positive: No symptoms Psychiatric: positive: No symptoms All Other Systems: positive: Reviewed and negative Objective - Patient Data Reviewed Vital Signs: Yes Vital Signs: Vital Signs x48h Temp Pulse BP BP Pulse Ox 05/31/17 08:56 155/54 H 05/31/17 08:03 36.5 C 79 155/54 H 91 L Weight: Weight 05/29/17 05/30/17 05/31/17 23:59 23:59 23:59 Weight (kg) 79 kg Intake & Output: Intake and Output Totals x24h 05/29/17 05/30/17 05/31/17 23:59 23:59 23:59 Intake Total 740 3860.5 530 Output Total 440 826 8304 Balance 190 2985.5 -720 - Lab Results Lab Results: 05/31/17 07:09 05/31/17 07:09 Other Lab Results: Lab Results x24hrs 05/31/17 05/31/17 05/31/17 Range/Units 07:09 07:09 07:09 WBC 9.5 (4.8-10.8) x10^3/uL RBC 4.02 L (4.70-6.10) 10^6/uL Hgb 12.1 L (14.0-18.0) g/dL Hct 35.5 L (42.0-52.0) % MCV 88.3 (80.0-94.0) fL MCH 30.2 (27.0-31.0) pg MCHC 34.2 (32.0-36.0) g/dL RDW 13.7 (12.0-15.0) % Plt Count 172 (130-450) 10^3/uL MPV 7.4 (7.4-11.4) fL Neut # 7.7 H (1.5-6.6) 10^3/uL Lymph # 0.8 L (1.5-3.5) 10^3/uL [place] # 0.7 (0.0-1.0) 10^3/uL Eos # 0.2 (0.0-0.7) 10^3/uL Baso # 0.0 (0.0-0.1) 10^3/uL Absolute Nucleated RBC 0.00 x10^3/uL Nucleated RBC % 0.0 /100WBC VBG pH 7.451 H (7.31-7.41) Ionized Calcium 1.09 L YES (1.15-1.33) mmol/L Sodium 131 L (135-145) mmol/L Potassium 4.0 (3.5-5.0) mmol/L Chloride 100 L (101-111) mmol/L Carbon Dioxide 22 (21-32) mmol/L Anion Gap 9.0 (6-13) BUN 19 (6-20) mg/dL Creatinine 0.9 (0.6-1.2) mg/dL Estimated GFR (MDRD) 81 L (>89) Glucose 143 H (70-100) mg/dL Calcium 8.1 L (8.5-10.3) mg/dL Phosphorus 3.5 (2.5-4.6) mg/dL Magnesium 1.8 (1.7-2.8) mg/dL Total Bilirubin 1.5 H (0.2-1.0) mg/dL AST 16 (10-42) IU/L ALT 16 (10-60) IU/L Alkaline Phosphatase 51 (42-121) IU/L Total Protein 5.4 L (6.7-8.2) g/dL Albumin 2.8 L (3.2-5.5) g/dL Globulin 2.6 (2.1-4.2) g/dL Albumin/Globulin Ratio 1.1 (1.0-2.2) - Imaging Results Radiology Imaging: positive: Final report received - Current Medications Current Medications: Current Medications Generic Name Dose Route Start Last Admin Trade Name Freq PRN Reason Stop Dose Admin Acetaminophen/Hydrocodone Bitart 1 tab 05/29/17 14:47 05/31/17 08:55 [place] 5/325 PO 1 tab Q4HR PRN Administration Pain 5 to 7 Amiodarone HCl 100 mg 05/30/17 09:00 05/31/17 08:56 Pacerone PO 100 mg DAILY OMAR Administration Aspirin 325 mg 05/30/17 08:00 05/31/17 08:57 Donald PO 325 mg DAILYWM OMAR Administration Atorvastatin Calcium 40 mg 05/29/17 21:00 05/30/17 21:02 Lipitor PO 40 mg QPM OMAR Administration Docusate Sodium 250 - 500 mg 05/31/17 09:00 05/31/17 08:56 Colace 250mg Capsule PO 250 mg DAILY OMAR Administration Enoxaparin Sodium 40 mg 05/30/17 21:00 05/30/17 21:02 Lovenox SUBQ 40 mg QPM OMAR Administration Famotidine 20 mg 05/30/17 09:00 05/31/17 08:57 Pepcid PO 20 mg DAILY OMAR Administration Finasteride 5 mg 05/30/17 09:00 05/31/17 08:56 Proscar PO 5 mg DAILY OMAR Administration Hydromorphone HCl 0.5 mg 05/29/17 14:47 05/31/17 10:18 Dilaudid Inj Syringe IVP 0.5 mg Q2H PRN Administration Pain 8 to 10 Dextrose/Sodium Chloride 1,000 mls @ 85 mls/hr 05/30/17 22:55 05/30/17 23:43 D5.45ns IV 85 mls/hr .[id number] OMAR Administration Isosorbide Mononitrate 30 mg 05/30/17 09:00 05/31/17 08:57 Imdur PO 30 mg DAILY OMAR Administration Lisinopril 10 mg 05/30/17 09:00 05/31/17 08:56 Zestril PO 10 mg DAILY OMAR Administration Metoprolol Tartrate 50 mg 05/30/17 09:00 05/31/17 08:56 Lopressor PO 50 mg DAILY OMAR Administration Polyethylene Glycol 17 gm 05/30/17 09:00 05/31/17 08:57 Miralax PO Not Given DAILY OMAR Senna 8.6 - 17.2 mg 05/31/17 09:00 05/31/17 08:57 Senokot PO 8.6 mg DAILY OMAR Administration Sodium Chloride 10 ml 05/29/17 22:00 05/31/17 05:51 Normal Saline Flush 0.9% IVP 10 ml Q8HR OMAR Administration - Physical Exam Wound/Incisions: positive: Dressing dry and intact, No drainage General Appearance: positive: No acute distress, Alert Eyes Bilateral: positive: Normal inspection ENT: positive: ENT inspection nml Neck: positive: Nml inspection Respiratory: positive: Chest non-tender Cardiovascular: positive: Regular rate & rhythm Abdomen: positive: Non-tender Skin: positive: Color nml Extremities: positive: Non-tender, Full ROM, Nml appearance, Other (nvid in right lower extremity) Neurologic/Psychiatric: positive: Oriented x3, CN's nml (2-12), Motor nml, Sensation nml, Mood/affect nml
[2017-05-31] MEDS: DEXTROSE 5%-0.45% NACL 1,000 ML IV SCH (11:44)
--- NOTE | 2017-05-31 14:59 | PROVIDER PROGRESS NOTE ---
Assessment/Plan - Problem List (1) Subcapital fracture of right hip Qualifiers: Encounter type: subsequent encounter Fracture type: closed Assessment/Plan: Patient is POD# 1 s/p percutaneous pinning of the right hip Pain controlled Seen by PT today and doing better than yesterday but desaturating down to 70 to 80% with ambulation Patient could not walk 20 feet which he needs to when he gets back home to get in through the sliding door Patient likely needs 1-2 more days of PT before he can go home with his Patient wants to go home (2) Hypoxia: Patient has been hypoxic since admission but no signs of pneumonia on CXR. Patient more hypoxic when working with PT and became SOB Patient states he has chronic SOB CXR from admission shows pulmonary vascular congestion but no overt CHF or infiltrates Echo showed normal EF Patient getting IVF and appears to be congested Plan: Repeat CXR and stop IVF (3) Hypertension Qualifiers: Hypertension type: essential hypertension Qualified Code(s): I10 - Essential (primary) hypertension Assessment/Plan: BP well controlled Continue home meds BP controlled (4) BPH (benign prostatic hyperplasia) Assessment/Plan: Continued home meds Stable (5) GERD (gastroesophageal reflux disease) Assessment/Plan: On PPI No symptoms Stable (6) Hyperlipidemia Assessment/Plan: Continued home dose of statin Stable (7) Atrial fibrillation Qualifiers: Atrial fibrillation type: chronic Qualified Code(s): I48.2 - Chronic atrial fibrillation Assessment/Plan: Patient has AICD with pacer Patient on metoprolol will continue HR controlled Not on coumadin (8) CAD (coronary artery disease) Assessment/Plan: On plavix, metoprolol and statin Stable Echo shows normal EF Stress test less than 6 months ago was normal - Current Meds Current Meds: Current Medications Generic Name Dose Route Start Last Admin Trade Name Freq PRN Reason Stop Dose Admin Acetaminophen/Hydrocodone Bitart 1 tab 05/29/17 14:47 05/31/17 08:55 [place] 5/325 PO 1 tab Q4HR PRN Administration Pain 5 to 7 Amiodarone HCl 100 mg 05/30/17 09:00 05/31/17 08:56 Pacerone PO 100 mg DAILY OMAR Administration Aspirin 325 mg 05/30/17 08:00 05/31/17 08:57 Donald PO 325 mg DAILYWM OMAR Administration Atorvastatin Calcium 40 mg 05/29/17 21:00 05/30/17 21:02 Lipitor PO 40 mg QPM OMAR Administration Docusate Sodium 250 - 500 mg 05/31/17 09:00 05/31/17 08:56 Colace 250mg Capsule PO 250 mg DAILY OMAR Administration Enoxaparin Sodium 40 mg 05/30/17 21:00 05/30/17 21:02 Lovenox SUBQ 40 mg QPM OMAR Administration Famotidine 20 mg 05/30/17 09:00 05/31/17 08:57 Pepcid PO 20 mg DAILY OMAR Administration Finasteride 5 mg 05/30/17 09:00 05/31/17 08:56 Proscar PO 5 mg DAILY OMAR Administration Hydromorphone HCl 0.5 mg 05/29/17 14:47 05/31/17 10:18 Dilaudid Inj Syringe IVP 0.5 mg Q2H PRN Administration Pain 8 to 10 Isosorbide Mononitrate 30 mg 05/30/17 09:00 05/31/17 08:57 Imdur PO 30 mg DAILY OMAR Administration Lisinopril 10 mg 05/30/17 09:00 05/31/17 08:56 Zestril PO 10 mg DAILY OMAR Administration Metoprolol Tartrate 50 mg 05/30/17 09:00 05/31/17 08:56 Lopressor PO 50 mg DAILY OMAR Administration Polyethylene Glycol 17 gm 05/30/17 09:00 05/31/17 08:57 Miralax PO Not Given DAILY OMAR Senna 8.6 - 17.2 mg 05/31/17 09:00 05/31/17 08:57 Senokot PO 8.6 mg DAILY OMAR Administration Sodium Chloride 10 ml 05/29/17 22:00 05/31/17 13:28 Normal Saline Flush 0.9% IVP Not Given Q8HR OMAR - Lab Result Lab results reviewed: Yes Fish Bone Diagrams: 05/31/17 07:09 05/31/17 07:09 - Diagnostic Imaging Results Diagnostic Imaging Results: Final report reviewed - Additional Planning Condition/Complexity: Guarded My Orders: My Active Orders 06/01/17 05:00 CBC - COMP BLD CT W/AUTO DIFF [HEME] DAILYLAB CMP, RFLX TO IONIZED CA IF [CHEM] DAILYLAB MAGNESIUM [CHEM] DAILYLAB PHOSPHORUS [CHEM] DAILYLAB 05/31/17 13:50 Chest 1 View [XR] Routine 05/31/17 14:19 IS [Incentive Spirometry - RT] [RC] TID Consult/Specialty: PT, Other (Ortho) Plan Discussed with:: Patient Time Spent: 31-60 minutes Subjective - Subjective Patient Reports: Feeling Better, Pain (Controlled on the right hip), Shortness of Breath (Chronic worse with exertion), Other (No fevers, no chills, no cough) Nursing Reports: No Complaints Objective Vital Signs: Vital Signs - 24 hr 05/30/17 05/30/17 05/31/17 15:59 23:37 03:05 Temperature 36.7 C 36.6 C 36.8 C Heart Rate [ 67 69 72 Brachial] Respiratory 16 17 18 Rate Blood Pressure Blood Pressure 140/51 H 159/54 H 134/41 H [Right Brachial artery] O2 Saturation 92 94 92 05/31/17 05/31/17 05/31/17 08:03 08:56 12:28 Temperature 36.5 C 36.4 C L Heart Rate [ 79 59 L Brachial] Respiratory 18 Rate Blood Pressure 155/54 H Blood Pressure 155/54 H 122/48 L [Right Brachial artery] O2 Saturation 91 L 92 Oxygen O2 Source Nasal cannula I&O (Last 24 Hrs): Intake and Output Totals x24h 05/29/17 05/30/17 05/31/17 23:59 23:59 23:59 Intake Total 740 3860.5 2070 Output Total 137 297 8418 Balance 190 2985.5 620 General: Alert, Oriented x3, Cooperative, No acute distress HEENT: Atraumatic, PERRLA, EOMI, Mucous membr. moist/pink Neck: Supple, No JVD, No thyromegaly, +2 carotid pulse wo bruit, No LAD Lymphatic: no adenopathy Neuro: Alert, Non Focal, CN 2-12 Grossly Intact, Oriented Times 3 Cardiovascular: No murmurs, Other (Irregular) Respiratory: Chest non-tender, Rales (BIbasilar) Abdomen: Normal bowel sounds, Soft, No tenderness, No hepatospenomegaly Extremities: No edema, Normal pulses, Other (Right hip swollen but improved ROM and mild tenderness) Skin: No rashes, No breakdown - Results Results: Laboratory Results WBC 9.5 x10^3/uL (4.8-10.8) 05/31/17 07:09 RBC 4.02 10^6/uL (4.70-6.10) L 05/31/17 07:09 Hgb 12.1 g/dL (14.0-18.0) L 05/31/17 07:09 Hct 35.5 % (42.0-52.0) L 05/31/17 07:09 MCV 88.3 fL (80.0-94.0) 05/31/17 07:09 MCH 30.2 pg (27.0-31.0) 05/31/17 07:09 MCHC 34.2 g/dL (32.0-36.0) 05/31/17 07:09 RDW 13.7 % (12.0-15.0) 05/31/17 07:09 Plt Count 172 10^3/uL (130-450) 05/31/17 07:09 MPV 7.4 fL (7.4-11.4) 05/31/17 07:09 Neut # 7.7 10^3/uL (1.5-6.6) H 05/31/17 07:09 Lymph # 0.8 10^3/uL (1.5-3.5) L 05/31/17 07:09 [place] # 0.7 10^3/uL (0.0-1.0) 05/31/17 07:09 Eos # 0.2 10^3/uL (0.0-0.7) 05/31/17 07:09 Baso # 0.0 10^3/uL (0.0-0.1) 05/31/17 07:09 Absolute Nucleated RBC 0.00 x10^3/uL 05/31/17 07:09 Nucleated RBC % 0.0 /100WBC 05/31/17 07:09 PT 13.1 secs (9.9-12.6) H 05/29/17 13:20 INR 1.2 (0.8-1.2) 05/29/17 13:20 VBG pH 7.451 (7.31-7.41) H 05/31/17 07:09 Ionized Calcium 1.09 mmol/L (1.15-1.33) L 05/31/17 07:09 Sodium 131 mmol/L (135-145) L 05/31/17 07:09 Potassium 4.0 mmol/L (3.5-5.0) 05/31/17 07:09 Chloride 100 mmol/L (101-111) L 05/31/17 07:09 Carbon Dioxide 22 mmol/L (21-32) 05/31/17 07:09 Anion Gap 9.0 (6-13) 05/31/17 07:09 BUN 19 mg/dL (6-20) 05/31/17 07:09 Creatinine 0.9 mg/dL (0.6-1.2) 05/31/17 07:09 Estimated GFR (MDRD) 81 (>89) L 05/31/17 07:09 Glucose 143 mg/dL (70-100) H 05/31/17 07:09 Calcium 8.1 mg/dL (8.5-10.3) L 05/31/17 07:09 Ionized Calcium YES 05/31/17 07:09 Phosphorus 3.5 mg/dL (2.5-4.6) 05/31/17 07:09 Magnesium 1.8 mg/dL (1.7-2.8) 05/31/17 07:09 Total Bilirubin 1.5 mg/dL (0.2-1.0) H 05/31/17 07:09 AST 16 IU/L (10-42) 05/31/17 07:09 ALT 16 IU/L (10-60) 05/31/17 07:09 Alkaline Phosphatase 51 IU/L (42-121) 05/31/17 07:09 Total Protein 5.4 g/dL (6.7-8.2) L 05/31/17 07:09 Albumin 2.8 g/dL (3.2-5.5) L 05/31/17 07:09 Globulin 2.6 g/dL (2.1-4.2) 05/31/17 07:09 Albumin/Globulin Ratio 1.1 (1.0-2.2) 05/31/17 07:09 Blood Type A NEGATIVE 05/29/17 13:20 Antibody Screen NEGATIVE 05/29/17 13:20
--- NOTE | 2017-05-31 15:16 | XRAY Preliminary Report ---
Exam: XR CHEST 1 VIEW IMPRESSION: Minimal bilateral basilar opacities, likely atelectasis. [facility] SITE ID: [id number]
--- NOTE | 2017-05-31 15:17 | XRAY Report ---
EXAM: CHEST RADIOGRAPHY EXAM DATE: 05/31/2017 01:59 PM. CLINICAL HISTORY: Hypoxia. COMPARISON: 05/29/2017. TECHNIQUE: 1 view. FINDINGS: Lungs/Pleura: Minimal bilateral basilar opacities, likely atelectasis. No pleural effusion. No pneumo thorax. Mediastinum: Within exam limitations, the cardiomediastinal contour is normal. Other: None. IMPRESSION: Minimal bilateral basilar opacities, likely atelectasis. [facility] Referring Provider Line: [phone] SITE ID: [id number]
[2017-05-31] MEDS: ENOXAPARIN 40 MG/0.4 ML SYRINGE SUBQ SCH (20:23)
[2017-05-31] MEDS: ATORVASTATIN 40 MG TABLET PO SCH (20:23)
--- NOTE | 2017-05-31 22:17 | HISTORY & PHYSICAL EXAMINATION ---
DATE OF SERVICE: 05/29/2017 Physician: Shima Patel MD HISTORY OF PRESENT ILLNESS: This is an 82-year-old white male with a history of a defibrillator for cardiac arrest done in 2009 and he is followed by a car seat coverer for this. He has a history of coronary disease status post either angioplasty or stenting done some years after the defibrillator and he gets a yearly stress test, the most recent was 2-3 months ago, which was within normal limits according to the patient. The patient has a history of hypertension, high cholesterol, and prior peptic ulcer disease. The patient presents after falling down some cement stairs at the [employer] yesterday. Friends of his helped him get to the house as well as let him borrow a walker, but today he was unable to walk because of severe pain of the right hip area. The patient came to the emergency room and has been diagnosed with a fracture and admitted with plan for orthopedic surgery. REVIEW OF SYSTEMS: The patient denies chest pain ever and states that remotely , an abnormal stress test led to the cath and angioplasty. He also has a peripheral vascular stent in the right leg area. He denies any CHF symptoms. He has never had the defibrillator discharge. He has never had syncope. A comprehensive review of systems was performed and is negative, except for these positives. FAMILY HISTORY: No inherited diseases. MEDICATIONS AT HOME: 1. Amiodarone 100 mg p.o. daily. 2. Adult dose aspirin daily. 3. Nexium 40 mg daily. 4. Finasteride 5 mg p.o. daily. 5. Imdur either 30 or 60 mg p.o. daily. 6. Lisinopril, possibly on this or not, 10 mg p.o. daily. 7. Metoprolol tartrate 50 mg p.o. daily. 8. Simvastatin 40 mg p.o. daily. 9. Oxycodone p.r.n. pain. 10. The patient has been off of Plavix for over a year. ALLERGIES: NONE. SOCIAL HISTORY: The patient is a nonsmoker who never smoked, drinks no alcohol , does not use illicit drugs. PHYSICAL EXAMINATION: GENERAL: Reveals a white male lying in bed with head of bed elevated. He is in no distress. VITAL SIGNS: Blood pressure 170/68, pulse of 72, afebrile, room air oxygen saturation 91%, but on 2.5 liters nasal cannula it is 100%. HEENT: Unremarkable. His mucosa is moist. NECK: Shows no JVD at a 40-degree upright angle. No carotid bruits. No thyromegaly. CHEST: Clear. HEART: Tones are normal. ABDOMEN: Soft, nontender, normal bowel sounds. EXTREMITIES: Show no clubbing, cyanosis or edema. NEUROLOGIC: Intact. LABORATORY DATA: Normal electrolytes. Normal CBC except white count 11.8. No INR was done. No EKG was done, but telemetry shows sinus rhythm with very low P waves and a ventricular couplet. His echo shows LVH with a sigmoid septum, normal EF of 60%, aortic sclerosis but no stenosis. IMPRESSION: 1. History of coronary disease with angioplasty and a normal stress test 2-3 months ago (he has these yearly). 2. Status post a defibrillator ([employer]) 7 years ago for what sounds like a cardiac arrest and no defibrillation discharges since that time, followed closely by a car seat coverer. 3. Peripheral vascular disease with angioplasty or stenting of a right leg artery. 4. Status post fall with right hip fracture. 5. Hypertension (the patient took no medications at all today). PLAN: 1. Admit the patient to the Medical service. Obtain an Orthopedic consult. The patient is cleared for orthopedic surgery tomorrow, has low cardiac risk given the recent normal stress test and normal LVEF on today's echo. Obtain an EKG for a baseline 12-lead, to follow. Start his medications and give additional doses for blood pressure control today. Obtain an INR before surgery. 2. Deep vein prophylaxis: Lovenox. CODE STATUS: FULL CODE. ATTESTATION: It is expected that the patient will be discharged and/or transferred to another facility within 96 hours: Yes. TD: 05/29/2017 19:36 ZACH
--- NOTE | 2017-05-31 22:25 | CONSULTATION NOTE ---
DATE OF SERVICE: 05/29/2017 Physician: Joe Carver MD CHIEF COMPLAINT: Right hip, groin pain. DATE OF INJURY: 05/28/2017. HISTORY OF PRESENT ILLNESS: The patient is an 82-year-old man who was out visiting the [facility] on 05/28/2017. He slipped on the steps entering the building and had groin pain. The staff lent him a walker and he was able to walk to his car and get home using that. He, however, had a lot of pain overnight was taken to the hospital earlier today. In the hospital x-ray showed a right hip fracture, valgus impac villa femoral neck fracture. He had a CT scan of the head, which showed no bleed or fracture and he was ot herwise cleared. He was admitted to the hospital by the hospitalist, Dr. Patel, who felt he is low cardi ac risk after reviewing his echocardiogram and the patient himself. He has a normal ejection fraction. No e vidence of aortic stenosis or other significant heart condition. The patient does have an implanted automati c defibrillator, has a history of coronary artery disease and an angioplasty. He was on clopidogrel fo r a period of time, but this was stopped sometime ago as it was felt that it was no longer needed. ALLERGIES: THE PATIENT HAS NO KNOWN DRUG ALLERGIES. MEDICATIONS: Takes a list of medications, which are reviewed and does not include Clopidogrel. PHYSICAL EXAMINATION: The patient is an elderly man in no apparent distress. He is alert and orient ed x3. There is no other evidence of musculoskeletal injury. He is able to move upper extremities and left lower extremity normally including all joints and is nontender throughout. EXTREMITIES: His right hip is painful to move with positive log roll test and he is, however, intact distally including a 2+ dorsalis pedis pulse. The posterior tibialis pulse cannot be palpated. He has normal sensation throughout the lower extremity and normal extension and flexion of the ankle and toes. X-rays reveal a right valgus impacted femoral neck fracture. There is no other injury apparent. LABORATORY STUDIES: Are significant for a hematocrit of 41.8. No other critical findings. ASSESSMENT AND PLAN: The patient is admitted for a right valgus impacted femoral neck fracture. He is medically cleared for surgical intervention by Dr. Patel. After discussion of treatment options and the risks and benefits of each including nonoperative the patient wished to proceed with right hip percut aneous pinning with 3 screws to 4 screws. This was discussed in detail as well as the other surgical option s. The patient was apprised of all significant risks including blood clots, bleeding, injury to nerves and r isks of nonunion or malunion, the risk of needing revision surgery at some point for failure of the repair. The patient acknowledged and consented to the procedure witnessed by the nurse. The patient will be made n.p.o. after midnight. He will have [employer] search engine optimization consultant to the operating room and anesthesia was called and will likely do spinal anesthetic for the patient. The patient will be scheduled for 8 a.m. in the morning. TD: 05/29/2017 19:45
[2017-06-01 05:42] LABS: BASOPHILS % (AUTO) 0.3 %; EOSINOPHILS # (AUTO) 0.3 10^3/uL (0.0-0.7); EOSINOPHILS % (AUTO) 2.6 %; HGB - HEMOGLOBIN 14.1 g/dL (14.0-18.0); LYMPHOCYTES # (AUTO) 1.2 10^3/uL (1.5-3.5); LYMPHOCYTES % (AUTO) 11.9 %; MEAN CORPUSCULAR HEMOGLOBIN 30.5 pg (27.0-31.0); MEAN CORPUSCULAR HGB CONC 34.4 g/dL (32.0-36.0); MEAN CORPUSCULAR VOLUME 88.6 fL (80.0-94.0); MONOCYTES # (AUTO) 0.9 10^3/uL (0.0-1.0); MONOCYTES % (AUTO) 9.1 %; NEUTROPHILS # (AUTO) 7.7 10^3/uL (1.5-6.6); NEUTROPHILS % (AUTO) 76.1 %; PLT - PLATELET COUNT 207 10^3/uL (130-450); RED BLOOD COUNT 4.63 10^6/uL (4.70-6.10); RED CELL DISTRIBUTION WIDTH 13.7 % (12.0-15.0); WHITE BLOOD COUNT 10.1 x10^3/uL (4.8-10.8)
[2017-06-01 05:45] LABS: ALBUMIN 3.3 g/dL (3.2-5.5); ALBUMIN/GLOBULIN RATIO 1.1 (1.0-2.2); ALKALINE PHOSPHATASE 59 IU/L (42-121); ALT ALANINE AMINOTRANSFERASE 17 IU/L (10-60); AST ASPARTATE AMINOTRANSFERASE 24 IU/L (10-42); BILIRUBIN,TOTAL 2.2 mg/dL (0.2-1.0); BUN - BLOOD UREA NITROGEN 14 mg/dL (6-20); CALCIUM 8.6 mg/dL (8.5-10.3); CARBON DIOXIDE - CO2 24 mmol/L (21-32); CHLORIDE 105 mmol/L (101-111); CREATININE 0.8 mg/dL (0.6-1.2); GFR - MDRD 93 (>89); GLUCOSE 113 mg/dL (70-100); MAGNESIUM 1.9 mg/dL (1.7-2.8); PHOSPHORUS 2.9 mg/dL (2.5-4.6); SODIUM 138 mmol/L (135-145); TOTAL PROTEIN 6.4 g/dL (6.7-8.2)
[2017-06-01] MEDS: HYDROcod/ACETAM 5/325 MG TABLET PO PRN ×3 (07:23→19:15)
[2017-06-01] MEDS: SODIUM CHLORIDE FLUSH 0.9% 10 ML SYRINGE IVP SCH ×3 (08:16→21:43)
[2017-06-01] MEDS: ASPIRIN 325 MG TABLET PO SCH (08:25)
[2017-06-01] MEDS: DOCUSATE SODIUM 250 MG CAPSULE PO SCH (08:26)
[2017-06-01] MEDS: SENNA 8.6 MG TABLET PO SCH (08:26)
[2017-06-01] MEDS: FINASTERIDE 5 MG TABLET PO SCH (08:27)
[2017-06-01] MEDS: FAMOTIDINE 20 MG TABLET PO SCH (08:27)
[2017-06-01] MEDS: ISOSORBIDE MONONITRATE ER 30 MG TABLET PO SCH (08:27)
[2017-06-01] MEDS: METOPROLOL TARTRATE 50 MG TABLET PO SCH (08:27)
[2017-06-01] MEDS: AMIODARONE 200 MG TABLET PO SCH (08:28)
[2017-06-01] MEDS: POLYETHYLENE GLYCOL 3350 17 GM PACKET PO SCH (08:29)
[2017-06-01] MEDS: LISINOPRIL 5 MG TABLET PO SCH (08:34)
--- NOTE | 2017-06-01 11:30 | PROVIDER PROGRESS NOTE ---
Subjective - General Admit Date: 05/29/17 Procedure Date: 05/30/17 Post Op Days: 2 Procedure Performed: right hip in situ cannulated screw fixation of valgus impacted femoral neck - Review of Systems Wound/Incisions: positive: Dressing dry and intact, No drainage Drain Type: none Functional Status: positive: 1, 2, 3, 4 General: positive: Weakness HEENT: positive: No symptoms Pulmonary: positive: Shortness of breath Cardiovascular: positive: No symptoms Gastrointestinal: positive: No symptoms Genitourinary: positive: No symptoms Musculoskeletal: positive: Other (groin pain improving) Skin: positive: No symptoms Psychiatric: positive: No symptoms All Other Systems: positive: Reviewed and negative Objective - Patient Data Reviewed Vital Signs: Yes Vital Signs: Vital Signs x48h Temp Pulse Resp BP BP Pulse Ox 06/01/17 11:22 36.2 C L 63 21 121/45 L 92 06/01/17 08:27 172/57 H 06/01/17 08:04 36.4 C L 72 20 172/57 H 92 06/01/17 05:00 36.7 C 69 16 141/61 H 94 Intake & Output: Intake and Output Totals x24h 05/30/17 05/31/17 06/01/17 23:59 23:59 23:59 Intake Total 3860.5 2710 1560 Output Total 875 2110 1475 Balance 2985.5 600 85 - Lab Results Lab Results: 06/01/17 05:17 06/01/17 05:17 Other Lab Results: Lab Results x24hrs 06/01/17 06/01/17 Range/Units 05:17 05:17 WBC 10.1 (4.8-10.8) x10^3/uL RBC 4.63 L (4.70-6.10) 10^6/uL Hgb 14.1 (14.0-18.0) g/dL Hct 41.0 L (42.0-52.0) % MCV 88.6 (80.0-94.0) fL MCH 30.5 (27.0-31.0) pg MCHC 34.4 (32.0-36.0) g/dL RDW 13.7 (12.0-15.0) % Plt Count 207 (130-450) 10^3/uL MPV 8.0 (7.4-11.4) fL Neut # 7.7 H (1.5-6.6) 10^3/uL Lymph # 1.2 L (1.5-3.5) 10^3/uL [place] # 0.9 (0.0-1.0) 10^3/uL Eos # 0.3 (0.0-0.7) 10^3/uL Baso # 0.0 (0.0-0.1) 10^3/uL Absolute Nucleated RBC 0.01 x10^3/uL Nucleated RBC % 0.1 /100WBC Sodium 138 (135-145) mmol/L Potassium 3.6 (3.5-5.0) mmol/L Chloride 105 (101-111) mmol/L Carbon Dioxide 24 (21-32) mmol/L Anion Gap 9.0 (6-13) BUN 14 (6-20) mg/dL Creatinine 0.8 (0.6-1.2) mg/dL Estimated GFR (MDRD) 93 (>89) Glucose 113 H (70-100) mg/dL Calcium 8.6 (8.5-10.3) mg/dL Ionized Calcium NO Phosphorus 2.9 (2.5-4.6) mg/dL Magnesium 1.9 (1.7-2.8) mg/dL Total Bilirubin 2.2 H (0.2-1.0) mg/dL AST 24 (10-42) IU/L ALT 17 (10-60) IU/L Alkaline Phosphatase 59 (42-121) IU/L Total Protein 6.4 L (6.7-8.2) g/dL Albumin 3.3 (3.2-5.5) g/dL Globulin 3.1 (2.1-4.2) g/dL Albumin/Globulin Ratio 1.1 (1.0-2.2) - Current Medications Current Medications: Current Medications Generic Name Dose Route Start Last Admin Trade Name Freq PRN Reason Stop Dose Admin Acetaminophen/Hydrocodone Bitart 1 tab 05/29/17 14:47 06/01/17 07:23 [place] 5/325 PO 1 tab Q4HR PRN Administration Pain 5 to 7 Amiodarone HCl 100 mg 05/30/17 09:00 06/01/17 08:28 Pacerone PO 100 mg DAILY O[facility] Administration Aspirin 325 mg 05/30/17 08:00 06/01/17 08:25 Donald PO 325 mg DAILYWM [facility] Administration Atorvastatin Calcium 40 mg 05/29/17 21:00 05/31/17 20:23 Lipitor PO 40 mg QPM [facility] Administration Docusate Sodium 250 - 500 mg 05/31/17 09:00 06/01/17 08:26 Colace 250mg Capsule PO Not Given DAILY [facility] Enoxaparin Sodium 40 mg 05/30/17 21:00 05/31/17 20:23 Lovenox SUBQ 40 mg QPM OMAR Administration Famotidine 20 mg 05/30/17 09:00 06/01/17 08:27 Pepcid PO 20 mg DAILY [facility] Administration Finasteride 5 mg 05/30/17 09:00 06/01/17 08:27 Proscar PO 5 mg DAILY [facility] Administration Hydromorphone HCl 0.5 mg 05/29/17 14:47 05/31/17 10:18 Dilaudid Inj Syringe IVP 0.5 mg Q2H PRN Administration Pain 8 to 10 Isosorbide Mononitrate 30 mg 05/30/17 09:00 06/01/17 08:27 Imdur PO 30 mg DAILY [facility] Administration Lisinopril 10 mg 05/30/17 09:00 06/01/17 08:34 Zestril PO 10 mg DAILY [facility] Administration Metoprolol Tartrate 50 mg 05/30/17 09:00 06/01/17 08:27 Lopressor PO 50 mg DAILY [facility] Administration Polyethylene Glycol 17 gm 05/30/17 09:00 06/01/17 08:29 Miralax PO Not Given DAILY [facility] Senna 8.6 - 17.2 mg 05/31/17 09:00 06/01/17 08:26 Senokot PO Not Given DAILY [facility] Sodium Chloride 10 ml 05/29/17 22:00 06/01/17 08:16 Normal Saline Flush 0.9% IVP Not Given Q8HR [facility] - Physical Exam Wound/Incisions: positive: Dressing dry and intact General Appearance: positive: No acute distress, Alert Eyes Bilateral: positive: Normal inspection ENT: positive: ENT inspection nml Neck: positive: Nml inspection Respiratory: positive: Chest non-tender Cardiovascular: positive: Regular rate & rhythm Abdomen: positive: Non-tender Back: positive: Nml inspection Skin: positive: Color nml Extremities: positive: Non-tender, Full ROM Neurologic/Psychiatric: positive: Oriented x3, CN's nml (2-12), Motor nml, Sensation nml, Mood/affect nml Impression/Plan - Problem List Problem List: doing well pod 2. Ambulated 30' with walker with PT, but became short of breath. He states this has been his baseline, but RN recorded a significant desaturation. IVF stopped. CXRs are clear. HCT nl. Team is considering another day to stabilize and evaluate and may need to d/c with home O2.
[2017-06-01] MEDS ORDERED: FUROSEMIDE 40 MG/4 ML VIAL IVP ONE (13:45)
--- NOTE | 2017-06-01 18:24 | PROVIDER PROGRESS NOTE ---
Assessment/Plan - Problem List (1) Hip fracture Qualifiers: Encounter type: initial encounter Fracture type: closed Laterality: right Qualified Code(s): S72.001A - Fracture of unspecified part of neck of right femur, initial encounter for closed fracture Assessment/Plan: S/P surgery/ pinning which went well PT starting Pt wants home Health PT (2) Oxygen desaturation Assessment/Plan: Pt is 3.5 L pos fluid balance Will start diuretic then assess again with PT exercise, and he may need Home O2 ordered (3) CAD (coronary artery disease) Assessment/Plan: Stable without angina Will check a trop and BNP regarding this O2 desaturation for poss silent [place] Continue cardiac meds - Current Meds Current Meds: Current Medications Generic Name Dose Route Start Last Admin Trade Name Freq PRN Reason Stop Dose Admin Acetaminophen/Hydrocodone Bitart 1 tab 05/29/17 14:47 06/01/17 12:11 [place] 5/325 PO 1 tab Q4HR PRN Administration Pain 5 to 7 Amiodarone HCl 100 mg 05/30/17 09:00 06/01/17 08:28 Pacerone PO 100 mg DAILY [facility] Administration Aspirin 325 mg 05/30/17 08:00 06/01/17 08:25 Donald PO 325 mg DAILYWM [facility] Administration Atorvastatin Calcium 40 mg 05/29/17 21:00 05/31/17 20:23 Lipitor PO 40 mg QPM [facility] Administration Docusate Sodium 250 - 500 mg 05/31/17 09:00 06/01/17 08:26 Colace 250mg Capsule PO Not Given DAILY [facility] Enoxaparin Sodium 40 mg 05/30/17 21:00 05/31/17 20:23 Lovenox SUBQ 40 mg QPM [facility] Administration Famotidine 20 mg 05/30/17 09:00 06/01/17 08:27 Pepcid PO 20 mg DAILY [facility] Administration Finasteride 5 mg 05/30/17 09:00 06/01/17 08:27 Proscar PO 5 mg DAILY [facility] Administration Hydromorphone HCl 0.5 mg 05/29/17 14:47 05/31/17 10:18 Dilaudid Inj Syringe IVP 0.5 mg Q2H PRN Administration Pain 8 to 10 Isosorbide Mononitrate 30 mg 05/30/17 09:00 06/01/17 08:27 Imdur PO 30 mg DAILY [facility] Administration Lisinopril 10 mg 05/30/17 09:00 06/01/17 08:34 Zestril PO 10 mg DAILY [facility] Administration Metoprolol Tartrate 50 mg 05/30/17 09:00 06/01/17 08:27 Lopressor PO 50 mg DAILY [facility] Administration Polyethylene Glycol 17 gm 05/30/17 09:00 06/01/17 08:29 Miralax PO Not Given DAILY [facility] Senna 8.6 - 17.2 mg 05/31/17 09:00 06/01/17 08:26 Senokot PO Not Given DAILY [facility] Sodium Chloride 10 ml 05/29/17 14:47 06/01/17 14:44 Normal Saline Flush 0.9% IVP 20 ml PRN PRN Administration NEEDED PER PROVIDER ORDERS Sodium Chloride 10 ml 05/29/17 22:00 06/01/17 12:11 Normal Saline Flush 0.9% IVP 10 ml Q8HR OMAR Administration - Lab Result Fish Bone Diagrams: 06/01/17 05:17 06/01/17 05:17 - Additional Planning My Orders: My Active Orders 06/01/17 09:24 Oxygen Desat. Study w/Exercise [RC] .ONCE 06/02/17 05:00 BMP - BASIC METABOLIC PANEL [CHEM] DAILYLAB CBC - COMP BLD CT W/AUTO DIFF [HEME] DAILYLAB Subjective - Subjective Patient Reports: Feeling Better, Resting Comfortably Nursing Reports: Shortness of Breath, Other (Desats to 79% on 4L nc O2 when walked wuith PT) Objective Vital Signs: Vital Signs - 24 hr 05/31/17 05/31/17 06/01/17 19:55 20:35 00:47 Temperature 36.6 C 37.5 C Heart Rate [ 91 Brachial] Heart Rate [ 79 Radial] Respiratory 18 16 Rate Blood Pressure Blood Pressure [Left brachial artery] Blood Pressure 166/51 H 155/62 H [Right Brachial artery] O2 Saturation 92 93 94 06/01/17 06/01/17 06/01/17 05:00 08:04 08:27 Temperature 36.7 C 36.4 C L Heart Rate [ 69 72 Brachial] Heart Rate [ Radial] Respiratory 16 20 Rate Blood Pressure 172/57 H Blood Pressure [Left brachial artery] Blood Pressure 141/61 H 172/57 H [Right Brachial artery] O2 Saturation 94 92 01/01/18 01/01/18 01/01/18 11:22 14:45 16:01 Temperature 36.2 C L 37.1 C Heart Rate [ 63 67 65 Brachial] Heart Rate [ Radial] Respiratory 21 22 16 Rate Blood Pressure Blood Pressure 145/44 H [Left brachial artery] Blood Pressure 121/45 L 142/60 H [Right Brachial artery] O2 Saturation 92 92 95 Oxygen O2 Source Nasal cannula I&O (Last 24 Hrs): Intake and Output Totals x24h 05/30/17 05/31/17 06/01/17 23:59 23:59 23:59 Intake Total 3860.5 2710 2290 Output Total 875 2110 3750 Balance 2985.5 600 -1460 General: Alert, Oriented x3 HEENT: Mucous membr. moist/pink Neck: Supple Neuro: CN 2-12 Grossly Intact Cardiovascular: Regular rate, No murmurs Respiratory: No respiratory distress Abdomen: Soft Extremities: No edema - Results Results: Laboratory Results WBC 10.1 x10^3/uL (4.8-10.8) 06/01/17 05:17 RBC 4.63 10^6/uL (4.70-6.10) L 06/01/17 05:17 Hgb 14.1 g/dL (14.0-18.0) 06/01/17 05:17 Hct 41.0 % (42.0-52.0) L 06/01/17 05:17 MCV 88.6 fL (80.0-94.0) 06/01/17 05:17 MCH 30.5 pg (27.0-31.0) 06/01/17 05:17 MCHC 34.4 g/dL (32.0-36.0) 06/01/17 05:17 RDW 13.7 % (12.0-15.0) 06/01/17 05:17 Plt Count 207 10^3/uL (130-450) 06/01/17 05:17 MPV 8.0 fL (7.4-11.4) 06/01/17 05:17 Neut # 7.7 10^3/uL (1.5-6.6) H 06/01/17 05:17 Lymph # 1.2 10^3/uL (1.5-3.5) L 06/01/17 05:17 [place] # 0.9 10^3/uL (0.0-1.0) 06/01/17 05:17 Eos # 0.3 10^3/uL (0.0-0.7) 06/01/17 05:17 Baso # 0.0 10^3/uL (0.0-0.1) 06/01/17 05:17 Absolute Nucleated RBC 0.01 x10^3/uL 06/01/17 05:17 Nucleated RBC % 0.1 /100WBC 06/01/17 05:17 PT 13.1 secs (9.9-12.6) H 05/29/17 13:20 INR 1.2 (0.8-1.2) 05/29/17 13:20 VBG pH 7.451 (7.31-7.41) H 05/31/17 07:09 Ionized Calcium 1.09 mmol/L (1.15-1.33) L 05/31/17 07:09 Sodium 138 mmol/L (135-145) 06/01/17 05:17 Potassium 3.6 mmol/L (3.5-5.0) 06/01/17 05:17 Chloride 105 mmol/L (101-111) 06/01/17 05:17 Carbon Dioxide 24 mmol/L (21-32) 06/01/17 05:17 Anion Gap 9.0 (6-13) 06/01/17 05:17 BUN 14 mg/dL (6-20) 06/01/17 05:17 Creatinine 0.8 mg/dL (0.6-1.2) 06/01/17 05:17 Estimated GFR (MDRD) 93 (>89) 06/01/17 05:17 Glucose 113 mg/dL (70-100) H 06/01/17 05:17 Calcium 8.6 mg/dL (8.5-10.3) 06/01/17 05:17 Ionized Calcium NO 06/01/17 05:17 Phosphorus 2.9 mg/dL (2.5-4.6) 06/01/17 05:17 Magnesium 1.9 mg/dL (1.7-2.8) 06/01/17 05:17 Total Bilirubin 2.2 mg/dL (0.2-1.0) H 06/01/17 05:17 AST 24 IU/L (10-42) 06/01/17 05:17 ALT 17 IU/L (10-60) 06/01/17 05:17 Alkaline Phosphatase 59 IU/L (42-121) 06/01/17 05:17 Total Protein 6.4 g/dL (6.7-8.2) L 06/01/17 05:17 Albumin 3.3 g/dL (3.2-5.5) 06/01/17 05:17 Globulin 3.1 g/dL (2.1-4.2) 06/01/17 05:17 Albumin/Globulin Ratio 1.1 (1.0-2.2) 06/01/17 05:17 Blood Type A NEGATIVE 05/29/17 13:20 Antibody Screen NEGATIVE 05/29/17 13:20
[2017-06-01] MEDS: ENOXAPARIN 40 MG/0.4 ML SYRINGE SUBQ SCH (21:43)
[2017-06-01] MEDS: ATORVASTATIN 40 MG TABLET PO SCH (21:43)
[2017-06-02] MEDS: HYDROcod/ACETAM 5/325 MG TABLET PO PRN ×3 (05:36→16:24)
[2017-06-02] MEDS: SODIUM CHLORIDE FLUSH 0.9% 10 ML SYRINGE IVP SCH ×2 (05:37→14:22)
[2017-06-02 05:53] LABS: BASOPHILS # (AUTO) 0.1 10^3/uL (0.0-0.1); BASOPHILS % (AUTO) 0.6 %; EOSINOPHILS # (AUTO) 0.3 10^3/uL (0.0-0.7); EOSINOPHILS % (AUTO) 3.2 %; HGB - HEMOGLOBIN 12.9 g/dL (14.0-18.0); LYMPHOCYTES # (AUTO) 1.2 10^3/uL (1.5-3.5); LYMPHOCYTES % (AUTO) 12.3 %; MEAN CORPUSCULAR HEMOGLOBIN 30.1 pg (27.0-31.0); MEAN CORPUSCULAR HGB CONC 34.3 g/dL (32.0-36.0); MEAN CORPUSCULAR VOLUME 87.7 fL (80.0-94.0); MEAN PLATELET VOLUME 7.7 fL (7.4-11.4); MONOCYTES # (AUTO) 0.9 10^3/uL (0.0-1.0); NEUTROPHILS # (AUTO) 7.5 10^3/uL (1.5-6.6); NEUTROPHILS % (AUTO) 74.9 %; PLT - PLATELET COUNT 206 10^3/uL (130-450); RED BLOOD COUNT 4.31 10^6/uL (4.70-6.10); RED CELL DISTRIBUTION WIDTH 13.5 % (12.0-15.0)
[2017-06-02 06:00] LABS: CALCIUM 8.3 mg/dL (8.5-10.3); CREATININE 0.8 mg/dL (0.6-1.2)
--- NOTE | 2017-06-02 08:37 | PROVIDER PROGRESS NOTE ---
Subjective - General Admit Date: 05/29/17 Procedure Date: 05/30/17 Post Op Days: 3 Procedure Performed: right hip in situ cannulated screw fixation of valgus impacted femoral neck - Review of Systems Wound/Incisions: positive: Healing well, Dressing dry and intact Drain Type: none Functional Status: positive: 1, 2, 3, 4 General: positive: Weakness HEENT: positive: No symptoms Pulmonary: positive: Shortness of breath (much improved) Cardiovascular: positive: No symptoms Gastrointestinal: positive: No symptoms Genitourinary: positive: No symptoms Musculoskeletal: positive: Other (groin pain improving) Skin: positive: No symptoms Psychiatric: positive: No symptoms All Other Systems: positive: Reviewed and negative Objective - Patient Data Reviewed Vital Signs: Yes Vital Signs: Vital Signs x48h Temp Pulse Resp BP Pulse Ox 06/02/17 08:08 36.7 C 62 16 159/57 H 89 L 06/02/17 05:00 36.3 C L 65 18 92 06/02/17 01:00 36.5 C 65 16 167/55 H 93 Intake & Output: Intake and Output Totals x24h 05/31/17 06/01/17 06/02/17 23:59 23:59 23:59 Intake Total 2710 2640 500 Output Total 2110 4000 350 Balance 600 -1360 150 - Lab Results Lab Results: 06/02/17 05:42 06/02/17 05:42 Other Lab Results: Lab Results x24hrs 06/02/17 06/02/17 06/02/17 Range/Units 05:42 05:42 05:42 WBC (4.8-10.8) x10^3/uL RBC (4.70-6.10) 10^6/uL Hgb (14.0-18.0) g/dL Hct (42.0-52.0) % MCV (80.0-94.0) fL MCH (27.0-31.0) pg MCHC (32.0-36.0) g/dL RDW (12.0-15.0) % Plt Count (130-450) 10^3/uL MPV (7.4-11.4) fL Neut # (1.5-6.6) 10^3/uL Lymph # (1.5-3.5) 10^3/uL [place] # (0.0-1.0) 10^3/uL Eos # (0.0-0.7) 10^3/uL Baso # (0.0-0.1) 10^3/uL Absolute Nucleated RBC x10^3/uL Nucleated RBC % /100WBC Sodium 136 (135-145) mmol/L Potassium 3.2 L (3.5-5.0) mmol/L Chloride 100 L (101-111) mmol/L Carbon Dioxide 27 (21-32) mmol/L Anion Gap 9.0 (6-13) BUN 19 (6-20) mg/dL Creatinine 0.8 (0.6-1.2) mg/dL Estimated GFR (MDRD) 93 (>89) Glucose 97 (70-100) mg/dL Calcium 8.3 L (8.5-10.3) mg/dL Troponin I 0.04 (<0.49) ng/mL B-Natriuretic Peptide 566 H (5-100) pg/mL 06/02/17 06/01/17 06/01/17 Range/Units 05:42 18:46 18:46 WBC 10.0 (4.8-10.8) x10^3/uL RBC 4.31 L (4.70-6.10) 10^6/uL Hgb 12.9 L (14.0-18.0) g/dL Hct 37.8 L (42.0-52.0) % MCV 87.7 (80.0-94.0) fL MCH 30.1 (27.0-31.0) pg MCHC 34.3 (32.0-36.0) g/dL RDW 13.5 (12.0-15.0) % Plt Count 206 (130-450) 10^3/uL MPV 7.7 (7.4-11.4) fL Neut # 7.5 H (1.5-6.6) 10^3/uL Lymph # 1.2 L (1.5-3.5) 10^3/uL [place] # 0.9 (0.0-1.0) 10^3/uL Eos # 0.3 (0.0-0.7) 10^3/uL Baso # 0.1 (0.0-0.1) 10^3/uL Absolute Nucleated RBC 0.00 x10^3/uL Nucleated RBC % 0.0 /100WBC Sodium (135-145) mmol/L Potassium (3.5-5.0) mmol/L Chloride (101-111) mmol/L Carbon Dioxide (21-32) mmol/L Anion Gap (6-13) BUN (6-20) mg/dL Creatinine (0.6-1.2) mg/dL Estimated GFR (MDRD) (>89) Glucose (70-100) mg/dL Calcium (8.5-10.3) mg/dL Troponin I 0.05 (<0.49) ng/mL B-Natriuretic Peptide 869 H (5-100) pg/mL - Current Medications Current Medications: Current Medications Generic Name Dose Route Start Last Admin Trade Name Freq PRN Reason Stop Dose Admin Acetaminophen/Hydrocodone Bitart 1 tab 05/29/17 14:47 06/02/17 05:36 [place] 5/325 PO 1 tab Q4HR PRN Administration Pain 5 to 7 Amiodarone HCl 100 mg 05/30/17 09:00 06/01/17 08:28 Pacerone PO 100 mg DAILY [facility] Administration Aspirin 325 mg 05/30/17 08:00 06/01/17 08:25 Donald PO 325 mg DAILYWM [facility] Administration Atorvastatin Calcium 40 mg 05/29/17 21:00 06/01/17 21:43 Lipitor PO 40 mg QPM OMAR Administration Docusate Sodium 250 - 500 mg 05/31/17 09:00 06/01/17 08:26 Colace 250mg Capsule PO Not Given DAILY [facility] Enoxaparin Sodium 40 mg 05/30/17 21:00 06/01/17 21:43 Lovenox SUBQ 40 mg QPM O[facility] Administration Famotidine 20 mg 05/30/17 09:00 06/01/17 08:27 Pepcid PO 20 mg DAILY [facility] Administration Finasteride 5 mg 05/30/17 09:00 06/01/17 08:27 Proscar PO 5 mg DAILY [facility] Administration Hydromorphone HCl 0.5 mg 05/29/17 14:47 05/31/17 10:18 Dilaudid Inj Syringe IVP 0.5 mg Q2H PRN Administration Pain 8 to 10 Isosorbide Mononitrate 30 mg 05/30/17 09:00 06/01/17 08:27 Imdur PO 30 mg DAILY O[facility] Administration Lisinopril 10 mg 05/30/17 09:00 06/01/17 08:34 Zestril PO 10 mg DAILY O[facility] Administration Metoprolol Tartrate 50 mg 05/30/17 09:00 06/01/17 08:27 Lopressor PO 50 mg DAILY O[facility] Administration Polyethylene Glycol 17 gm 05/30/17 09:00 06/01/17 08:29 Miralax PO Not Given DAILY [facility] Senna 8.6 - 17.2 mg 05/31/17 09:00 06/01/17 08:26 Senokot PO Not Given DAILY O[facility] Sodium Chloride 10 ml 05/29/17 14:47 06/01/17 14:44 Normal Saline Flush 0.9% IVP 20 ml PRN PRN Administration NEEDED PER PROVIDER ORDERS Sodium Chloride 10 ml 05/29/17 22:00 06/02/17 05:37 Normal Saline Flush 0.9% IVP 10 ml Q8HR OMAR Administration - Physical Exam Wound/Incisions: positive: Healing well, Dressing dry and intact Extremities: positive: Non-tender, Full ROM, Nml appearance, No pedal edema Neurologic/Psychiatric: positive: Oriented x3, CN's nml (2-12), Motor nml, Sensation nml, Mood/affect nml (doing well, in good spirits. his is here with him.) Impression/Plan - Problem List Problem List: doing well. Discussed with Dr. Patel, appreciate her care. ambulating better and better. oxygenation improving after diuresis yesterday. plan is home when medically stable, likely today.
[2017-06-02] MEDS: FAMOTIDINE 20 MG TABLET PO SCH (09:08)
[2017-06-02] MEDS: LISINOPRIL 5 MG TABLET PO SCH (09:08)
[2017-06-02] MEDS: AMIODARONE 200 MG TABLET PO SCH (09:09)
[2017-06-02] MEDS: FINASTERIDE 5 MG TABLET PO SCH (09:09)
[2017-06-02] MEDS: ASPIRIN 325 MG TABLET PO SCH (09:09)
[2017-06-02] MEDS: METOPROLOL TARTRATE 50 MG TABLET PO SCH (09:09)
[2017-06-02] MEDS: ISOSORBIDE MONONITRATE ER 30 MG TABLET PO SCH (09:09)
[2017-06-02] MEDS: SENNA 8.6 MG TABLET PO SCH (09:09)
[2017-06-02] MEDS: DOCUSATE SODIUM 250 MG CAPSULE PO SCH (09:10)
[2017-06-02] MEDS: POLYETHYLENE GLYCOL 3350 17 GM PACKET PO SCH (09:11)
[2017-06-02] MEDS ORDERED: POTASSIUM CHLORIDE 20 MEQ TABLET PO SCH (14:22)
[2017-06-02 16:00] VITALS: BP 154/64
--- NOTE | 2017-06-02 17:24 | Discharge Plan ---
Discharge Plan Disposition: Home, Self Care Condition: Stable Prescriptions: HYDROcod/ACETAM 5/325 [[place] 5/325] 1 tab PO Q8HR PRN #5 tablet PRN Reason: Pain 5 to 7 Diet: Cardiac Activity Restrictions: Activity as Tolerated Shower Restrictions: No Driving Restrictions: Yes Assistance Devices: Walker Weight Bearing: Full Weight Instruction Topics: Hip Replace Use Walker, Hip Replace Exercise Chart, Fx Hip Surg Home Recovery Additional Instructions or Follow Up instructions: Resume all your medications as before hospitalization You have a prescription for pain medications ([place]) to use if the pain is severe Home Health Physical Therapy has been ordered for you. Please do home PT See your Primary Care Provider to refer you to an Orthopedist for an office Orthopedic check in 1-2 weeks. You oxygen level is low and drops when you are active. Start using supplemental oxygen which was ordered for you Follow-Up Care: Home Health - PT No Smoking: If you smoke, Please STOP! Call for help. Follow-up with: Michael Carranza MD [Primary Care Provider] -
--- NOTE | 2017-06-23 05:24 | DISCHARGE SUMMARY ---
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 The patient fell down some cement stairs at the [facility] post and was able to get home using somebody's walker, but awoke with severe pain and presented to the emergency room where he was diagnosed with a hip fracture and admitted for orthopedic surgery. 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 He was therefore cleared for orthopedic surgery from a medical and cardiac standpoint. HOSPITAL COURSE AND DISCHARGE DIAGNOSES: 1. Hip fracture. The patient underwent successful surgery by Dr. Carver. The patient was up and out of bed on the day following surgery and was advised to have physical therapy by home health after discharge, which was ordered for him. 2. Oxygen desaturation. Postoperatively, the patient had oxygen desaturations documented when he started physical therapy. He was placed on supplemental oxygen and a chest x -ray was done that showed atelectasis, but no infiltrate or edema. The patient was advised to continue to use his incentive spirometer postop and he was also discharged with an order for oxygen: The patient required 3 liters supplemental oxygen by nasal cannula at rest and 4 liters oxygen by nasal cannula with exercise and during sleep. 3. Coronary artery disease history. The patient had no angina or other complaints regarding this diagnosis and he was maintained on his usual medications. 4. Status post internal defibrillator. There were no significant dysrhythmias or problems with the defibrillator while he was hospitalized. 5. Hypertension. The patient's blood pressure was slightly elevated throughout his course at 160/60, this was partially felt to be from pain postoperatively. He was maintained on his blood pressure medications throughout this hospitalization. LABS AND IMAGING: Reviewed and summarized above. ALLERGIES: NONE. CONDITION AT DISCHARGE: Stable. PHYSICAL EXAMINATION AT DISCHARGE: VITAL SIGNS: Blood pressure 154/64, pulse of 63 in sinus rhythm, afebrile, oxygen saturation 93% on 3 liters oxygen nasal cannula. HEENT: Unremarkable. NECK: Without JVD, or carotid bruits. CHEST: Had diminished breath sounds, but clear. Heart sounds normal. No audible murmur. ABDOMEN: Soft and nontender. EXTREMITIES: Without edema. He had minimal tenderness at the surgical site. NEUROLOGIC: Intact. DISCHARGE MEDICATIONS: 1. [place] 5/325 mg p.o. q. 8 hours p.r.n. pain and 5 tablets were provided. 2. Oxygen 3 liters at rest and 4 liters with exercise and sleep. His other medications were continued as prehospitalization and included: 3. Amiodarone 100 mg p.o. daily. 4. Plavix 75 mg daily. 5. Cardura 2 mg p.o. in the evening. 6. Finasteride 5 mg p.o. daily. 7. Isosorbide mononitrate 30 mg p.o. daily. 8. Lidoderm patch topically daily. 9. Toprol-XL 50 mg daily. 10. OxyContin 10 mg daily. 11. Zantac 150 mg p.o. daily. 12. Simvastatin 20 mg p.o. daily. FOLLOWUP: Home Health PT was ordered, followup with an Orthopedist in approximately a week and routine followup with his PCP. CODE STATUS: FULL CODE. Time required to complete this entire discharge: 45 minutes. TD: 06/23/2017 06:22 [email or web address]
== END 2017-06-02 18:00 | disposition home or self-care (01) | DRG 481 ==
LOC: ED 11:41 → MS2 14:47
PROVIDERS: ADMIT Internal Medicine; ATTEND Internal Medicine
PROC: 0QH634Z Insertion of Internal Fixation Device into Right Upper Femur, Percutaneous Approach (ICD-10-PCS; principal; 2017-05-30 08:00)
DX: S72.011A Unspecified intracapsular fracture of right femur, initial encounter for closed fracture (principal); J95.89 Other postprocedural complications and disorders of respiratory system, not elsewhere classified; J98.11 Atelectasis; E78.00 Pure hypercholesterolemia, unspecified; W10.8XXA Fall (on) (from) other stairs and steps, initial encounter; I49.9 Cardiac arrhythmia, unspecified; I25.10 Atherosclerotic heart disease of native coronary artery without angina pectoris; I10 Essential (primary) hypertension; I48.2 Chronic atrial fibrillation; E78.5 Hyperlipidemia, unspecified; M81.0 Age-related osteoporosis without current pathological fracture; K21.9 Gastro-esophageal reflux disease without esophagitis; N40.0 Benign prostatic hyperplasia without lower urinary tract symptoms; H91.90 Unspecified hearing loss, unspecified ear; I73.9 Peripheral vascular disease, unspecified; Z66 Do not resuscitate; Y92.29 Other specified public building as the place of occurrence of the external cause; Y99.8 Other external cause status; Z95.5 Presence of coronary angioplasty implant and graft; Y83.8 Other surgical procedures as the cause of abnormal reaction of the patient, or of later complication, without mention of misadventure at the time of the procedure; Z95.0 Presence of cardiac pacemaker; Z87.11 Personal history of peptic ulcer disease; Z79.82 Long term (current) use of aspirin; Z79.891 Long term (current) use of opiate analgesic; Z79.899 Other long term (current) drug therapy; Z86.74 Personal history of sudden cardiac arrest; Z99.81 Dependence on supplemental oxygen; Z95.828 Presence of other vascular implants and grafts
CPT/HCPCS: 36415; 70450; 71010; 72125; 80048; 80053; 82330; 83735; 83880; 84100; 84484; 85025; 85610; 86850; 86900; 86901; 93005; 93306; 94761; 96361; 96374; 96376; 99284

== ENCOUNTER 2017-06-26 12:30 | Inpatient (IN) | payer MEDICARE, OTHER ==
--- NOTE | 2017-06-26 13:38 | XRAY Report ---
EXAM: RIGHT HIP AND PELVIS RADIOGRAPHY EXAM DATE: 06/26/2017 01:23 PM. HISTORY: Fall, pain, postop. COMPARISONS: 05/29/2017. TECHNIQUE: 1 view of the pelvis and 1 view of the hip. FINDINGS: Bones: Right subcapital fracture now showing increased impaction and displacement resulting in 60% ap position. Interval placement of 3 orthopedic nails, one of which projects along the upper margin of t he femoral head. Otherwise unremarkable. Joints: Minimal bilateral hip joint space narrowing. Widening of right teardrop distance compatible w ith joint effusion. Soft Tissues: Vascular calcifications. IMPRESSION: Reinjury of right subcapital fracture resulting in decreased apposition, status post ORIF . [facility] Referring Provider Line: [phone] SITE ID: [id number]
[2017-06-26] MEDS ORDERED: HYDROmorphone 1 MG/ML SYRINGE IVP STA ×3 (13:53→14:56)
[2017-06-26] MEDS ORDERED: SODIUM CHLORIDE 0.9% 1,000 ML IV ONE (13:54)
--- NOTE | 2017-06-26 13:56 | ED Physician Documentation ---
History of Present Illness - Stated complaint Stated Complaint: UNABLE TO STAND - Chief complaint Chief Complaint: General - History obtained from History obtained from: Patient, Friend - History of Present Illness Timing: How many days ago (3) Pain level max: 10 Pain level now: 10 Improved by: rest Worsened by: movement, standing - Additonal information Additional information: Patient is an 82-year-old male who is status post open reduction internal fixation of a right hip fracture approximately a month ago. He says he fell again 2 days ago, landed on the right hip. Has had continued pain since that time. Review of Systems Ten Systems: 10 systems reviewed and negative Constitutional: denies: Fever, Chills Ears: denies: Ear pain Nose: denies: Rhinorrhea / runny nose, Congestion Throat: denies: Sore throat Cardiac: denies: Chest pain / pressure Respiratory: denies: Cough GI: denies: Abdominal Pain, Nausea, Vomiting, Diarrhea Skin: denies: Rash Musculoskeletal: denies: Neck pain, Back pain Neurologic: denies: Headache PD PAST MEDICAL HISTORY - Past Medical History Cardiovascular: Hypertension, High cholesterol, Coronary artery disease, Arrhythmia GI: GERD, Ulcers HEENT: Chronic hearing loss - Past Surgical History Past Surgical History: Yes General: Cholecystectomy Cardiovascular: Pacemaker, AICD, Angioplasty, Other - Present Medications Home Medications: Ambulatory Orders Medication Instructions Recorded Confirmed Amiodarone HCl [Pacerone] 100 mg PO DAILY 10/22/13 06/26/17 Finasteride 5 mg PO DAILY 10/22/13 06/26/17 Isosorbide Mononitrate ER [Imdur] 30 mg PO DAILY 10/22/13 06/26/17 Simvastatin 20 mg PO DAILY 10/22/13 06/26/17 Clopidogrel [Plavix] 75 mg PO DAILY 05/30/17 06/26/17 Doxazosin [Cardura] 2 mg PO QPM 05/30/17 06/26/17 Lidocaine Patch 5% [Lidoderm Patch] 1 patch TOP DAILY PRN 05/30/17 06/26/17 Metoprolol Succinate [Toprol Xl] 50 mg PO DAILY 05/30/17 06/26/17 Ranitidine HCl [Heartburn Relief] 150 mg PO BID 05/30/17 06/26/17 Cholecalciferol (Vitamin D3) 2,000 units PO DAILY 06/26/17 06/26/17 [Vitamin D3] Lisinopril 2.5 mg PO DAILY 06/26/17 06/26/17 Alon/Polymyx B Sulf/Dexameth 1 - 2 drops EACHEYE DAILY 06/26/17 06/26/17 [Sebzky-Cbysw-Nykeunrb Eye Drop] Oxycodone HCl/Acetaminophen 1 tab PO Q8H PRN 06/26/17 06/26/17 [Oxycodone-Acetaminophen 5-325] - Allergies Allergies/Adverse Reactions: Allergies Allergy/AdvReac Type Severity Reaction Status Date / Time No Known Drug Allergies Allergy Verified 06/26/17 12:50 - Social History Does the pt smoke?: No Smoking Status: Never smoker Does the pt drink ETOH?: No Does the pt have substance abuse?: No - Immunizations Immunizations are current?: Yes - POLST Patient has POLST: Yes PD ED PE NORMAL - Vitals Vital signs reviewed: Yes - General General: Alert and oriented X 3, No acute distress, Well developed/nourished - HEENT HEENT: Moist mucous membranes - Neck Neck: Supple, no meningeal sign - Cardiac Cardiac: RRR, Strong equal pulses - Respiratory Respiratory: No respiratory distress, Clear bilaterally - Abdomen Abdomen: Soft, Non tender, Non distended - Derm Derm: Warm and dry - Extremities Extremities: Other (TTP about the R hip. NVI. + pain with ROM.) - Neuro Neuro: Alert and oriented X 3 - Psych Psych: Normal mood, Normal affect Results - Vitals Vitals: Vital Signs - 24 hr 06/26/17 06/26/17 06/26/17 12:46 14:47 15:19 Temperature 36.3 C L Heart Rate 66 60 62 Respiratory 16 16 20 Rate Blood Pressure 103/42 L 129/57 L 131/57 H O2 Saturation 92 94 94 Oxygen O2 Source Room air - Labs Labs: Laboratory Tests 06/26/17 06/26/17 06/26/17 14:21 14:21 14:21 WBC 13.3 H RBC 4.56 L Hgb 13.5 L Hct 40.2 L MCV 88.0 MCH 29.6 MCHC 33.7 RDW 14.0 Plt Count 270 MPV 7.4 Neut # 11.5 H Lymph # 0.8 L Surry # 0.8 Eos # 0.1 Baso # 0.1 Absolute Nucleated RBC 0.00 Nucleated RBC % 0.0 PT 12.7 H INR 1.1 Sodium 134 L Potassium 4.3 Chloride 99 L Carbon Dioxide 24 Anion Gap 11.0 BUN 17 Creatinine 1.0 Estimated GFR (MDRD) 72 L Glucose 125 H Calcium 9.0 Total Bilirubin 1.0 AST 19 ALT 16 Alkaline Phosphatase 90 Total Protein 6.6 L Albumin 3.5 Globulin 3.1 Albumin/Globulin Ratio 1.1 Lipase 18 L - Rads (name of study) R hip xray Radiology: Prelim report reviewed, EMP read contemporaneously, See rad report ( Reinjury of right subcapital fracture resulting in decreased apposition, status post ORIF) PD MEDICAL DECISION MAKING - ED course Complexity details: reviewed old records, reviewed results, re-evaluated patient , considered differential, d/w patient, d/w ux consultant ED course: Patient is an 82-year-old male who presents to the emergency department with a recurrent right hip fracture. Discussed the case with Dr. Macias, orthopedics who recommends admission to the hospitalist service and plan on operating on the patient tomorrow. Pain is well controlled in the emergency department. Also discussed the case with Dr. Ridley, hospitalist who accepts. This document was made in part using voice recognition software. While efforts are made to proofread this document, sound alike and grammatical errors may occur. Departure - Departure Disposition: [facility] DC/Xfer Clinical Impression: Hip fracture Qualifiers: Encounter type: initial encounter Fracture type: closed Laterality: right Qualified Code(s): S72.001A - Fracture of unspecified part of neck of right femur, initial encounter for closed fracture Condition: Stable Discharge Date/Time: 06/26/17 16:08
[2017-06-26 14:45] LABS: BASOPHILS # (AUTO) 0.1 10^3/uL (0.0-0.1); BASOPHILS % (AUTO) 0.5 %; EOSINOPHILS # (AUTO) 0.1 10^3/uL (0.0-0.7); EOSINOPHILS % (AUTO) 0.8 %; HGB - HEMOGLOBIN 13.5 g/dL (14.0-18.0); LYMPHOCYTES # (AUTO) 0.8 10^3/uL (1.5-3.5); LYMPHOCYTES % (AUTO) 6.3 %; MEAN CORPUSCULAR HEMOGLOBIN 29.6 pg (27.0-31.0); MEAN CORPUSCULAR HGB CONC 33.7 g/dL (32.0-36.0); MEAN PLATELET VOLUME 7.4 fL (7.4-11.4); MONOCYTES # (AUTO) 0.8 10^3/uL (0.0-1.0); MONOCYTES % (AUTO) 5.8 %; NEUTROPHILS # (AUTO) 11.5 10^3/uL (1.5-6.6); NEUTROPHILS % (AUTO) 86.6 %; PLT - PLATELET COUNT 270 10^3/uL (130-450); RED BLOOD COUNT 4.56 10^6/uL (4.70-6.10); WHITE BLOOD COUNT 13.3 x10^3/uL (4.8-10.8)
[2017-06-26 14:56] LABS: ALBUMIN 3.5 g/dL (3.2-5.5); ALBUMIN/GLOBULIN RATIO 1.1 (1.0-2.2); TOTAL PROTEIN 6.6 g/dL (6.7-8.2)
[2017-06-26] MEDS ORDERED: PROCHLORPERAZINE 10 MG/2 ML VIAL IVP PRN (15:27)
[2017-06-26] MEDS ORDERED: ZOLPIDEM 5 MG TABLET PO PRN (15:27)
[2017-06-26] MEDS ORDERED: ACETAMINOPHEN 325 MG TABLET PO PRN (15:27)
[2017-06-26] MEDS ORDERED: SODIUM CHLORIDE FLUSH 0.9% 10 ML SYRINGE IVP PRN (15:27)
[2017-06-26] MEDS ORDERED: ENOXAPARIN 40 MG/0.4 ML SYRINGE SUBQ SCH (16:00)
[2017-06-26 16:01] LABS: INR 1.1 (0.8-1.2); PT - PROTHROMBIN TIME 12.7 secs (9.9-12.6)
--- NOTE | 2017-06-26 16:03 | XRAY Report ---
EXAM: CHEST RADIOGRAPHY EXAM DATE: 06/26/2017 03:48 PM. CLINICAL HISTORY: Dyspnea. COMPARISON: 05/31/2017. TECHNIQUE: 1 view. FINDINGS: Lungs/Pleura: There are patchy areas of opacity within the right midlung and bilateral lower lungs. N o evidence of large effusion. No pneumothorax. Mediastinum: There is mild cardia mentally. Left subclavian multilead ICD is in place. Other: None. IMPRESSION: 1. Lungs well-expanded. There is mild cardiomegaly. 2. There is a reticular opacity within the right midlung and bilateral lower lungs are relatively sta ble. Stability would favor lung fibrosis over an acute process such as edema or pneumonia. No clearly new areas of airspace disease are seen. 3. No evidence of pneumothorax. [facility] Referring Provider Line: [phone] SITE ID: [id number]
--- NOTE | 2017-06-26 16:16 | PROVIDER PROGRESS NOTE ---
Subjective - Prog Note Date Prog Note Date: 06/26/17 Prog Note Time: 16:14 - Subjective Pt reports feeling: Worse (S/p multiple cannulated screw fixation of right capital hip fracture in late May 2017 STH dropped about 2 feet onto his tiolet seat at home this morning, sustaining another injury to his right hip. No LOC or other injury. Did notice increased hip pain with motion; unable to stand or weight bear on the left side. No dsistal weakness/numbness.) Objective - Lab Results Fish Bones: 06/26/17 14:21 06/26/17 14:21 - Diagnostic Imaging Diagnostic Imaging Comments: XR show displaced right subcapital hip fracture. Screws are cutting out of bone. - Other Results/Comments Other Results/Comments: EXAM: Right leg - minimally shortened, slightly internally rotated. Tender anterior groin, less so laterally. Painful hip motion. MOves toes well. Sensation intact. Good cap filling. Assessment/Plan - Problem List (1) Hip fracture Impression: New injury to right hip has resulted in now a displaced right subcapital hip fracture PLAN: After discussion of treatment options, patient has decided to proceed with removal of screws and insertion of a cementless bipolar hip endoprosthesis Sat AM. Risk and benefit of surgery explained. Risk include infection, blood loss, nerve damage,blood clots, misalignment, limb length inequality, etc. Questions answered. Consent signed. Leg marked. Qualifiers: Encounter type: initial encounter Fracture type: closed Laterality: right Qualified Code(s): S72.001A - Fracture of unspecified part of neck of right femur, initial encounter for closed fracture
[2017-06-26] MEDS: HYDROmorphone 1 MG/ML SYRINGE IVP PRN ×3 (16:23→23:26)
--- NOTE | 2017-06-26 17:19 | CONSULTATION NOTE ---
DATE OF SERVICE: 06/26/2017 Physician: Renzo Macias MD ORTHOPEDIC CONSULT NOTE: DATE: 06/26/2017 REFERRING PHYSICIAN: Dr. Deni Montalvo from the emergency room. CHIEF COMPLAINT: "I hurt my right hip again." HISTORY OF PRESENT ILLNESS: Mr. Jorge Henry is an 82-year-old male who in late May of 2017 apparently had a ground level fall sustaining a minimally displaced subcapital hip fracture to his right hip. Dr. Ferrari performed multiple screw fixation of this fracture on that admission. The patient was subsequently discharged, went to the rehabilitation center and more recently has been back home. On the day of his admission, however, he was attempting to go to the bathroom when he lost his balance and dropped about 2 feet in the air, landing on his hard toilet seat. He noted immediate pain and mild deformity of his right hip as the result of this accident. Had painful range of motion of his hip. He was unable to stand and weightbear after this fall. There was no loss of consciousness or other injuries, however. He was taken to the emergency room here at [facility] where his evaluation and x-rays showed that he had now a displaced right subcapital hip fracture with at least one of the screws nearly cut out of bone. The patient is being admitted now for medical evaluation and stabilization prior to further hip surgery. PHYSICAL EXAMINATION: GENERAL: Revealed a tall, male lying in the stretcher in moderate amount of distress. His right hip and leg showed minimal shortening present although his leg was internally rotated more than the opposite side. The patient had tenderness primarily in the anterior groin of the right hip. To a lesser degree, also some lateral tenderness on palpation as well. Painful range of motion of the hip noted. The patient moves his toes well on command. Sensation intact in the lower extremity. Good capillary filling noted of the digits in the foot. X-rays showed displacement of his right subcapital hip fracture. There is some of the hip hardware nearly cutting out superiorly on several views. ASSESSMENT: 1. Status post multiple screw fixation for a right subcapital hip fracture - with a new injury. The patient has now displaced this fracture. 2. History of arrhythmias including atrial fibrillation. 3. History of hypertension. PLAN: The patient is admitted to the medical service for an evaluation and stabilization prior to surgery. It is anticipated he will be cleared medically to proceed with surgery, though he is on Plavix medication we need to proceed with surgery before this is able to be neutralized. Talking to the patient, it appears as if he has not actually been taking his Plavix on a regular basis as well. Our plan then is to proceed with removal of his hip screws and proceeding with a cementless right bipolar hip and the prostheses on Thursday morning. The patient will be n.p.o. after midnight tonight. Covered with a routine prophylactic antibiotics (Kefzol 2 grams IV 30 minutes prior to incision). We will do a type and screen in case he requires transfusion postoperatively. The risks and benefits of surgery were explained to the patient. These include but are not limited to infection, blood loss, nerve damage, malalignment of the leg, shortening of the leg, blood clots in the leg, etc. The patient appears to understand these risks. Questions were answered. He wished to proceed with surgery as planned. Consent has been signed. The leg has been marked. TD: 06/26/2017 18:18
--- NOTE | 2017-06-26 17:32 | HISTORY & PHYSICAL EXAMINATION ---
DATE OF SERVICE: 06/26/2017 Physician: Shima Patel MD DATE OF ADMISSION: 06/26/2017 HISTORY OF PRESENT ILLNESS: This is an 82-year-old white male with a history of coronary artery disease with stents, defibrillator for prior cardiac arrest, a recent admission here for a hip fracture after sustaining a fall which was operated successfully and he was discharged for home physical therapy. The patient today, fell about 2 feet onto his toilet seat and immediately had pain in that same right hip area. He was brought to the emergency room and diagnosed with a fracture on the same side and will now need repeat more extensive hip surgery. The patient has been compliant with his medications. He denies any heart failure or coronary symptoms such as angina or shortness of breath or leg edema. He has pain when moving the right hip and cannot stand or bear weight. ALLERGIES: NONE. MEDICATIONS: At home 1. Amiodarone 100 mg daily. 2. Finasteride 5 mg daily. 3. Imdur 30 mg daily. 4. Simvastatin 20 mg daily. 5. OxyContin 10 mg daily. 6. Plavix 75 mg daily. 7. Cardura 2 mg q.p.m. 8. Lidocaine patch topically daily. 9. Toprol-XL 50 mg daily. 10. Zantac 150 mg b.i.d. 11. Percocet 5/325 b.i.d. p.r.n. pain. 12. Hydrocodone with Tylenol q. 8 hours p.r.n. pain. SOCIAL HISTORY: He is a nonsmoker, never smoked, drinks no alcohol and has no illicit drug use. FAMILY HISTORY: No inherited diseases. REVIEW OF SYSTEMS: A comprehensive review of systems was performed and the pertinent positives are as above. PHYSICAL EXAMINATION: GENERAL: Elderly white male. He is somnolent from receiving pain medications. He is supine in bed and not in any distress. VITAL SIGNS: Blood pressure 146/54, pulse is 61 in sinus rhythm, afebrile, room air saturation is 94%. HEENT: Unremarkable. His oral mucosa is moist. NECK: Shows no JVD in a supine position. No thyromegaly or carotid bruits. LUNGS: Clear. HEART: Sounds are normal. ABDOMEN: Soft, positive bowel sounds. EXTREMITIES: Show no clubbing, cyanosis or edema. The right side has internal rotation of the lower leg. NEUROLOGIC: Intact, but currently somnolent. LABORATORY DATA: Sodium 134, potassium 4.3, BUN 17, creatinine 1.0. Normal liver tests. Normal lipase. INR 1.1. White blood count 13.3, hemoglobin 30.5, platelet count normal at 270. DIAGNOSTIC DATA: Chest x-ray shows chronic changes, but no acute disease. EKG was not done. IMPRESSION: 1. Status post a fall without loss of consciousness and a refractured right hip 2. Status post hip fracture with repair 3 weeks ago. 3. History of coronary disease. 4. History of defibrillator for remote cardiac arrest. PLAN: Place the patient on telemetry. Stop his Plavix in preparation for hip surgery. Begin Lovenox for deep venous thrombosis prophylaxis. Continue with his cardiac medications otherwise. 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 DEEP VENOUS THROMBOSIS PROPHYLAXIS: Lovenox. CODE STATUS: FULL CODE. ATTESTATION: The patient is expected to be discharged or transferred to another facility within 96 hours: Yes. TD: 06/26/2017 18:31 ZACH
[2017-06-26] MEDS: DOXAZOSIN 1 MG TABLET PO SCH ×2 (20:42→20:44)
[2017-06-26] MEDS: SODIUM CHLORIDE FLUSH 0.9% 10 ML SYRINGE IVP SCH (23:26)
[2017-06-27] MEDS: HYDROmorphone 1 MG/ML SYRINGE IVP PRN ×2 (06:03→08:05)
[2017-06-27] MEDS: SODIUM CHLORIDE FLUSH 0.9% 10 ML SYRINGE IVP SCH ×3 (06:03→20:16)
[2017-06-27] MEDS ORDERED: ceFAZolin 2 GM/50 ML 2 GM/50 ML BAG IV SCH (08:15)
[2017-06-27] MEDS ORDERED: LACTATED RINGERS 1,000 ML IV ONE ×3 (08:37→11:34)
[2017-06-27] MEDS ORDERED: NON FORMULARY MED (Lisinopril [Lisinopril] 2.5 MG) PO SCH (09:00)
[2017-06-27] MEDS: POLYETHYLENE GLYCOL 3350 17 GM PACKET PO SCH (09:00)
[2017-06-27] MEDS ORDERED: NEOSTIGMINE 1 MG/1 ML 10 ML MDV IVP ONE (09:44)
[2017-06-27] MEDS ORDERED: ROCURONIUM 50 MG/5 ML VIAL IVP ONE (09:44)
[2017-06-27] MEDS ORDERED: ONDANSETRON 4 MG/2 ML VIAL IVP ONE (09:44)
[2017-06-27] MEDS ORDERED: fentaNYL 100 MCG/2 ML VIAL IVP ONE (09:44)
[2017-06-27] MEDS ORDERED: ePHEDrine 50 MG/ML AMP IVP ONE (09:44)
[2017-06-27] MEDS ORDERED: PROPOFOL 200 MG/20 ML VIAL IVP ONE (09:44)
[2017-06-27] MEDS ORDERED: GLYCOPYRROLATE 1 MG/5 ML VIAL IVP ONE (09:44)
[2017-06-27] MEDS ORDERED: BUPIVACAINE 0.25% PF 30 ML VIAL SUBQ ONE ×2 (10:04→11:34)
[2017-06-27] MEDS ORDERED: ACETAMINOPHEN 1,000 MG/100 ML 100 ML IV ONE (12:25)
[2017-06-27] MEDS ORDERED: PROCHLORPERAZINE 10 MG/2 ML VIAL IVP PRN (12:31)
[2017-06-27] MEDS ORDERED: ACETAMINOPHEN 1,000 MG/100 ML 100 ML IV PRN ×2 (12:31→18:00)
[2017-06-27] MEDS ORDERED: DOCUSATE SODIUM 100 MG CAPSULE PO PRN (12:31)
[2017-06-27] MEDS ORDERED: ONDANSETRON 4 MG/2 ML VIAL IVP PRN (12:31)
[2017-06-27] MEDS ORDERED: SENNA 8.6 MG TABLET PO PRN (12:31)
[2017-06-27] MEDS ORDERED: ACETAMINOPHEN 325 MG TABLET PO PRN (12:31)
--- NOTE | 2017-06-27 12:47 | OPERATIVE REPORT ---
Operative Report - General Admit Date: 06/26/17 Procedure Date: 06/27/17 Planned Procedure: Removal of right hip hardware; cementless bipolar right hip endoprosthesis Pre-Op Diagnosis: Refracture of right hip fracture Procedure Performed: Removal of right hip hardware; cementless bipolar right hip endoprosthesis Post Op Diagnosis: Same - Procedure Note Primary Surgeon: Jessa Macias Anesthesia Provider: Edgar Spaulding Anesthesia Technique: General ET tube IV Fluids (mL): 2,200 Estimated Blood Loss (mL): 600 Complications: None
[2017-06-27] MEDS: AMIODARONE 200 MG TABLET PO SCH (13:27)
[2017-06-27] MEDS: LISINOPRIL 5 MG TABLET PO SCH (13:28)
[2017-06-27] MEDS: METOPROLOL SUCCINATE 50 MG TABLET PO SCH (13:28)
[2017-06-27] MEDS: ISOSORBIDE MONONITRATE ER 30 MG TABLET PO SCH (13:28)
--- NOTE | 2017-06-27 14:04 | XRAY Report ---
EXAM: PELVIS RADIOGRAPHY EXAM DATE: 06/27/2017 01:04 PM. CLINICAL HISTORY: Post hip hemiarthroplasty. COMPARISON: 06/26/2017. TECHNIQUE: 1 view. FINDINGS: Bones: Normal. No fracture or bone lesion. Joints: Right total hip prosthesis in anatomic alignment. No abnormal lucency associated with the pro stheses. Minimal left hip joint space narrowing with marginal lipping. Soft Tissues: Vascular calcifications. Skin closure alessandra on the right. IMPRESSION: Status post right THR. MALIKA Referring Provider Line: [phone] SITE ID: [id number]
--- NOTE | 2017-06-27 15:38 | PROVIDER PROGRESS NOTE ---
Assessment/Plan - Problem List (1) Hip fracture Qualifiers: Encounter type: initial encounter Fracture type: closed Laterality: right Qualified Code(s): S72.001A - Fracture of unspecified part of neck of right femur, initial encounter for closed fracture Assessment/Plan: S/P hip surgery today by Dr Macias without complications, EBL 600 cc (despite only 1 day off Plavix) Continue pain meds Begin OOB and PT tomorrow (2) CAD (coronary artery disease) Assessment/Plan: stable (3) Hypertension Qualifiers: Hypertension type: essential hypertension Qualified Code(s): I10 - Essential (primary) hypertension Assessment/Plan: Pt had normal BP after OR, despite no am BP meds, poss due to sedation or NPO status Continue to monitor and restart tomorrow (4) Arrhythmia Assessment/Plan: 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 Today atrial pacing is seen -- normal functioning AICD as a demand pacemaker - Current Meds Current Meds: Current Medications Generic Name Dose Route Start Last Admin Trade Name Freq PRN Reason Stop Dose Admin Amiodarone HCl 100 mg 06/27/17 09:00 06/27/17 13:27 Pacerone PO Not Given DAILY OMAR Doxazosin Mesylate 2 mg 06/26/17 21:00 06/26/17 20:44 Cardura PO Not Given QPM OMAR Isosorbide Mononitrate 30 mg 06/27/17 09:00 06/27/17 13:28 Imdur PO Not Given DAILY OMAR Lisinopril 2.5 mg 06/27/17 09:00 06/27/17 13:28 Zestril PO Not Given DAILY OMAR Metoprolol Succinate 50 mg 06/27/17 09:00 06/27/17 13:28 Toprol Xl PO Not Given DAILY OMAR Polyethylene Glycol 17 gm 06/27/17 09:00 06/27/17 09:00 Miralax PO Not Given DAILY OMAR - Lab Result Fish Bone Diagrams: 06/26/17 14:21 06/26/17 14:21 - Additional Planning My Orders: My Active Orders 06/26/17 15:31 Lidocaine Patch 5% [Lidoderm Patch] 1 patch TOP DAILY PRN 06/26/17 16:50 Nutrition Consult [CONS] Routine 06/26/17 21:00 Doxazosin [Cardura] 2 mg PO QPM 06/27/17 09:00 Amiodarone [Pacerone] 100 mg PO DAILY Finasteride [Proscar] 5 mg PO DAILY Isosorbide Mononitrate ER [Imdur] 30 mg PO DAILY Lisinopril [Zestril] 2.5 mg PO DAILY Metoprolol Succinate [Toprol Xl] 50 mg PO DAILY Neomycin/Poly/Dex Ophth Drops [Maxitrol Ophth Drops] 2 drops EACHEYE DAILY Subjective - Subjective Patient Reports: Resting Comfortably Nursing Reports: No Complaints Objective Vital Signs: Vital Signs - 24 hr 06/26/17 06/26/17 06/26/17 16:26 22:00 23:52 Temperature 36.6 C 36.8 C 36.8 C Heart Rate [ 60 61 Brachial] Heart Rate [ 61 Radial] Respiratory 12 16 18 Rate Blood Pressure 146/54 H [Left Brachial artery] Blood Pressure 168/54 H 164/53 H [Right Brachial artery] O2 Saturation 95 93 06/27/17 06/27/17 06/27/17 06:00 11:55 12:00 Temperature 36.6 C Heart Rate [ 60 Brachial] Heart Rate [ Radial] Respiratory 16 Rate Blood Pressure [Left Brachial artery] Blood Pressure 144/60 H [Right Brachial artery] O2 Saturation 93 100 96 06/27/17 06/27/17 06/27/17 12:09 12:20 12:25 Temperature Heart Rate [ Brachial] Heart Rate [ Radial] Respiratory Rate Blood Pressure [Left Brachial artery] Blood Pressure [Right Brachial artery] O2 Saturation 96 96 95 06/27/17 06/27/17 06/27/17 12:30 12:35 12:40 Temperature Heart Rate [ Brachial] Heart Rate [ Radial] Respiratory Rate Blood Pressure [Left Brachial artery] Blood Pressure [Right Brachial artery] O2 Saturation 93 93 96 06/27/17 06/27/17 06/27/17 12:55 13:01 13:30 Temperature 36.7 C 36.7 C Heart Rate [ 75 98 Brachial] Heart Rate [ Radial] Respiratory 18 19 Rate Blood Pressure [Left Brachial artery] Blood Pressure 111/47 L 109/40 L [Right Brachial artery] O2 Saturation 96 92 90 L 06/27/17 14:23 Temperature 37.0 C Heart Rate [ 70 Brachial] Heart Rate [ Radial] Respiratory 18 Rate Blood Pressure [Left Brachial artery] Blood Pressure 117/40 L [Right Brachial artery] O2 Saturation 92 Oxygen O2 Source Room air I&O (Last 24 Hrs): Intake and Output Totals x24h 06/25/17 06/26/17 06/27/17 23:59 23:59 23:59 Intake Total 1540 Output Total 425 975 Balance 1115 -975 General: Other (seddated (post-op) Day #0) HEENT: Mucous membr. moist/pink Neck: No JVD Cardiovascular: No murmurs Respiratory: No respiratory distress Extremities: No edema - Results Results: Laboratory Results WBC 13.3 x10^3/uL (4.8-10.8) H 06/26/17 14:21 RBC 4.56 10^6/uL (4.70-6.10) L 06/26/17 14:21 Hgb 13.5 g/dL (14.0-18.0) L 06/26/17 14:21 Hct 40.2 % (42.0-52.0) L 06/26/17 14:21 MCV 88.0 fL (80.0-94.0) 06/26/17 14:21 MCH 29.6 pg (27.0-31.0) 06/26/17 14:21 MCHC 33.7 g/dL (32.0-36.0) 06/26/17 14:21 RDW 14.0 % (12.0-15.0) 06/26/17 14:21 Plt Count 270 10^3/uL (130-450) 06/26/17 14:21 MPV 7.4 fL (7.4-11.4) 06/26/17 14:21 Neut # 11.5 10^3/uL (1.5-6.6) H 06/26/17 14:21 Lymph # 0.8 10^3/uL (1.5-3.5) L 06/26/17 14:21 [place] # 0.8 10^3/uL (0.0-1.0) 06/26/17 14:21 Eos # 0.1 10^3/uL (0.0-0.7) 06/26/17 14:21 Baso # 0.1 10^3/uL (0.0-0.1) 06/26/17 14:21 Absolute Nucleated RBC 0.00 x10^3/uL 06/26/17 14:21 Nucleated RBC % 0.0 /100WBC 06/26/17 14:21 PT 12.7 secs (9.9-12.6) H 06/26/17 14:21 INR 1.1 (0.8-1.2) 06/26/17 14:21 Sodium 134 mmol/L (135-145) L 06/26/17 14:21 Potassium 4.3 mmol/L (3.5-5.0) 06/26/17 14:21 Chloride 99 mmol/L (101-111) L 06/26/17 14:21 Carbon Dioxide 24 mmol/L (21-32) 06/26/17 14:21 Anion Gap 11.0 (6-13) 06/26/17 14:21 BUN 17 mg/dL (6-20) 06/26/17 14:21 Creatinine 1.0 mg/dL (0.6-1.2) 06/26/17 14:21 Estimated GFR (MDRD) 72 (>89) L 06/26/17 14:21 Glucose 125 mg/dL (70-100) H 06/26/17 14:21 Calcium 9.0 mg/dL (8.5-10.3) 06/26/17 14:21 Total Bilirubin 1.0 mg/dL (0.2-1.0) 06/26/17 14:21 AST 19 IU/L (10-42) 06/26/17 14:21 ALT 16 IU/L (10-60) 06/26/17 14:21 Alkaline Phosphatase 90 IU/L (42-121) 06/26/17 14:21 Total Protein 6.6 g/dL (6.7-8.2) L 06/26/17 14:21 Albumin 3.5 g/dL (3.2-5.5) 06/26/17 14:21 Globulin 3.1 g/dL (2.1-4.2) 06/26/17 14:21 Albumin/Globulin Ratio 1.1 (1.0-2.2) 06/26/17 14:21 Lipase 18 U/L (22-51) L 06/26/17 14:21 Blood Type A NEGATIVE 06/26/17 16:50 Antibody Screen NEGATIVE 06/26/17 16:50 - Procedures Procedures: Procedures INSERTION OF INT FIX INTO R UP FEMUR, PERC APPROACH (05/29/17)
[2017-06-27] MEDS: NEOMYCIN/POLYMYX/DEXAMETH OPHTH DROPS 5 ML EACHEYE SCH (15:54)
[2017-06-27] MEDS: FINASTERIDE 5 MG TABLET PO SCH (15:54)
[2017-06-27] MEDS: FAMOTIDINE 20 MG TABLET PO SCH ×2 (15:54→17:54)
[2017-06-27] MEDS: ceFAZolin 2 GM/50 ML 2 GM/50 ML BAG IV SCH ×2 (16:41→23:38)
[2017-06-27] MEDS: ASPIRIN 325 MG TABLET PO SCH (17:16)
--- NOTE | 2017-06-27 17:38 | OPERATIVE REPORT ---
DATE OF SERVICE: 06/27/2017 Physician: Renzo Macias MD DATE OF PROCEDURE: 06/27/2017. PREOPERATIVE DIAGNOSIS: Refracture of right hip fracture. POSTOPERATIVE DIAGNOSIS: Refracture of right hip fracture. PROCEDURE PERFORMED: Removal of right hip hardware; insertion of right cementless bipolar hip endoprosthesis. SURGEON: Renzo Macias MD ANESTHESIA: General. DESCRIPTION OF PROCEDURE: The patient was taken to the operating room on the morning of his operation where he was placed under general anesthetic without any complications. He was then positioned onto the operating room table and held in the lateral decubitus position, right side up with the pegboard apparatus. Care was made to make sure he had an axillary roll underneath his left axilla and that we had to his lateral left knee well padded with foam. We then prepped and draped the proximal lateral hip and thigh in the usual fashion for our procedure. Through a curvilinear incision centered over the greater trochanter, we dissected down in layers to his posterolateral right hip. Hemostasis was obtained using electrocautery. We were able to palpate his 3 cannulated hip screws that were present in the hip. These were removed without any problems. We then continued with our dissection through the fascia florecita and detached the external rotators and the piriformis muscle off of the posterior proximal femur. Next, we performed a T-type capsulotomy of the posterior hip, tagging these flaps with Ethibond suture. We could then identify the patient's fracture. We went ahead and performed our proximal femoral osteotomy using the femoral cutting guide to assist in the osteotomy. Osteotomy was made approximately a fingerbreadth proximal to the lesser trochanter. At this point, we could now visualize the femoral head. Using a hip screw, we inserted this into the femoral head, and then with a hip skid, we were able to take the femoral head out. A rongeur was then used to remove the soft tissue from within the hip joint, removing the remnant of the ligamentum teres. We measured the removed femoral head and it measured to be 48 mm outside diameter. We then placed a trial 48 mm head into the acetabulum and this appeared to have a good fit with good motion and a good suction fit on testing. We then directed our attention to the proximal femur. Using a box osteotome, we widened the lateral access to the proximal femur. The Charnley awl was then used to find the direction and define the center of the femoral canal. We then sequentially reamed with rigid reamers by hand preparing the proximal femoral canal. As we attempted to use the 15 mm rigid reamer, we found there was a great deal of resistance and decided to settle provisionally with a 14 mm size prosthesis. Starting with the 12 broach, we then prepared the proximal femoral canal with this broach. This was followed up sequentially up to a 14 mm broach. As we finished off the broaching of the proximal femoral canal with the 14 broach, we had a fair amount of resistance and decided that this would be the size of our femoral component. Next, we used a calcar reamer to finish off the osteotomy site of the proximal femur. We then trialed with a standard offset, 0 neck x 48 mm diameter trial prosthesis into the acetabulum. Checking for stability of the hip, we noted that the hip would start to dislocate at about 40 degrees of internal rotation with the hip in neutral adduction and hip flexed at 90 degrees. We replaced the trial prosthesis then with a high offset, 0 neck length, again with the 48 mm diameter femoral head. At this time, the stability seemed better. The leg lengths again were seen to be equal. No instability when attempting to place the patient into full extension, stable sleep position. Now with the hip flexed at 90 degrees with 0 adduction, we then were able to internally rotate the leg now to about 60-65 degrees. Satisfied with this, we determined this would be the final components for our endoprosthesis. We then removed the 14 broach from the proximal canal. We irrigated out the acetabulum and the proximal femur with pulse lavage and saline. We then followed up by inserting the permanent components. We then reduced the hip easily. Again, checked for the limb lengths, which appeared normal and the stability with the hip in full extension was good. Minimal pistoning was noted with longitudinal traction on the leg. It was stable in sleep position. Finally, with the hip flexed to 90 degrees with 0 abduction, we were able to internally rotate the hip out to about 60 degrees before there was some subluxation of the hip. This was felt to be satisfactory. Again, the final prosthesis was a 14 femoral stem, high offset, 0 neck length with an outside femoral head diameter of 48 mm. We then irrigated the wound out again with the pulse lavage apparatus. We closed the wound in layers, reattaching the capsular flaps together with our anchor stitches, followed by several stitches of 2-0 Vicryl to reattach the external rotators. [id number] stitches of 0 Ethibond used to approximate the fascia florecita layer. Buried simple stitches of 2-0 Vicryl were used to approximate the subcutaneous tissues. Finally, skin alessandra were used to approximate the skin edge. We then dressed the wound with a Xeroform gauze, fluffs, ABD and tape. The patient was then taken off of the fracture table onto his bed with a hip abductor pillow in position. The patient was taken to recovery room in satisfactory condition. ESTIMATED BLOOD LOSS: 600 mL REPLACEMENT: 2200 mL of crystalloid. DRAINS: None. INTRAOPERATIVE COMPLICATIONS: None. PLAN: The patient will undergo standard hip precautions, a standard hip replacement rehabilitation program. TD: 06/27/2017 18:37
[2017-06-27] MEDS: CALCIUM CARBONATE CHEW 500 MG TABLET PO SCH ×2 (17:55→20:06)
[2017-06-27] MEDS: SODIUM CHLORIDE 0.9% 1,000 ML IV SCH (20:15)
[2017-06-27] MEDS: oxyCOD/ACETAMIN 5 MG/325 MG TABLET PO PRN (23:39)
[2017-06-28] MEDS: LIDOCAINE PATCH 5% TOP PRN (02:56)
[2017-06-28] MEDS: oxyCOD/ACETAMIN 5 MG/325 MG TABLET PO PRN ×2 (03:29→09:14)
[2017-06-28] MEDS: SODIUM CHLORIDE FLUSH 0.9% 10 ML SYRINGE IVP SCH ×3 (03:38→21:44)
[2017-06-28 05:25] LABS: BASOPHILS % (AUTO) 0.2 %; EOSINOPHILS # (AUTO) 0.1 10^3/uL (0.0-0.7); EOSINOPHILS % (AUTO) 0.6 %; HGB - HEMOGLOBIN 10.6 g/dL (14.0-18.0); LYMPHOCYTES # (AUTO) 0.8 10^3/uL (1.5-3.5); MEAN CORPUSCULAR HEMOGLOBIN 30.4 pg (27.0-31.0); MEAN CORPUSCULAR HGB CONC 33.9 g/dL (32.0-36.0); MEAN CORPUSCULAR VOLUME 89.8 fL (80.0-94.0); MEAN PLATELET VOLUME 7.4 fL (7.4-11.4); MONOCYTES # (AUTO) 0.9 10^3/uL (0.0-1.0); MONOCYTES % (AUTO) 9.8 %; NEUTROPHILS # (AUTO) 7.6 10^3/uL (1.5-6.6); NEUTROPHILS % (AUTO) 80.4 %; PLT - PLATELET COUNT 203 10^3/uL (130-450); RED BLOOD COUNT 3.47 10^6/uL (4.70-6.10); RED CELL DISTRIBUTION WIDTH 14.1 % (12.0-15.0); WHITE BLOOD COUNT 9.4 x10^3/uL (4.8-10.8)
[2017-06-28] MEDS: SODIUM CHLORIDE 0.9% 1,000 ML IV SCH ×3 (06:10→19:44)
[2017-06-28] MEDS: NEOMYCIN/POLYMYX/DEXAMETH OPHTH DROPS 5 ML EACHEYE SCH (09:13)
[2017-06-28] MEDS: CALCIUM CARBONATE CHEW 500 MG TABLET PO SCH ×2 (09:14→21:43)
[2017-06-28] MEDS: AMIODARONE 200 MG TABLET PO SCH (09:14)
[2017-06-28] MEDS: LISINOPRIL 5 MG TABLET PO SCH (09:14)
[2017-06-28] MEDS: ISOSORBIDE MONONITRATE ER 30 MG TABLET PO SCH (09:14)
[2017-06-28] MEDS: METOPROLOL SUCCINATE 50 MG TABLET PO SCH (09:14)
[2017-06-28] MEDS: ASPIRIN 325 MG TABLET PO SCH ×2 (09:14→18:01)
[2017-06-28] MEDS: FAMOTIDINE 20 MG TABLET PO SCH (09:14)
[2017-06-28] MEDS: FINASTERIDE 5 MG TABLET PO SCH (09:15)
[2017-06-28] MEDS: POLYETHYLENE GLYCOL 3350 17 GM PACKET PO SCH (11:50)
--- NOTE | 2017-06-28 12:28 | PROVIDER PROGRESS NOTE ---
Subjective - Prog Note Date Prog Note Date: 06/28/17 Prog Note Time: 12:25 - Subjective Pt reports feeling: Improved (Less pain today. No distal weakness/numbness) Objective - Vital Signs/Intake & Output Vital Signs: Vital Signs x48h Temp Pulse Resp BP Pulse Ox 06/28/17 07:56 36.9 C 76 20 110/50 L 92 06/28/17 05:00 37.1 C 73 16 135/43 H 93 Intake & Output: Intake & Output 06/25/17 06/26/17 06/27/17 06/28/17 23:59 23:59 23:59 23:59 Intake Total 2002 344 7206.667 Output Total 425 1200 525 Balance 1115 -1000 636.667 - Lab Results Fish Bones: 06/28/17 04:55 06/26/17 14:21 Other Labs: Lab Results x24hrs 06/28/17 Range/Units 04:55 WBC 9.4 (4.8-10.8) x10^3/uL RBC 3.47 L (4.70-6.10) 10^6/uL Hgb 10.6 L (14.0-18.0) g/dL Hct 31.1 L (42.0-52.0) % MCV 89.8 (80.0-94.0) fL MCH 30.4 (27.0-31.0) pg MCHC 33.9 (32.0-36.0) g/dL RDW 14.1 (12.0-15.0) % Plt Count 203 (130-450) 10^3/uL MPV 7.4 (7.4-11.4) fL Neut # 7.6 H (1.5-6.6) 10^3/uL Lymph # 0.8 L (1.5-3.5) 10^3/uL [place] # 0.9 (0.0-1.0) 10^3/uL Eos # 0.1 (0.0-0.7) 10^3/uL Baso # 0.0 (0.0-0.1) 10^3/uL Absolute Nucleated RBC 0.00 x10^3/uL Nucleated RBC % 0.0 /100WBC - Other Results/Comments Other Results/Comments: EXAM: Dressing intact. Some wound tenderness. Sensation intact. Moves toes well. Good cap filling Assessment/Plan - Problem List (1) Hip fracture Impression: satis post op PLAN: Mobilize as tolerated. Emphasized the importance of THR protocal to minimze hip dislocation. Questions answered. Qualifiers: Encounter type: initial encounter Fracture type: closed Laterality: right Qualified Code(s): S72.001A - Fracture of unspecified part of neck of right femur, initial encounter for closed fracture
[2017-06-28] MEDS ORDERED: SODIUM CHLORIDE 0.9% 500 ML IV ONE (13:57)
[2017-06-28] MEDS: MORPHINE 2 MG/ML CARPUJECT IVP PRN ×3 (14:04→23:43)
[2017-06-28] MEDS: DOXAZOSIN 1 MG TABLET PO SCH (21:44)
[2017-06-29] MEDS: MORPHINE 2 MG/ML CARPUJECT IVP PRN ×6 (02:48→21:57)
[2017-06-29] MEDS: oxyCOD/ACETAMIN 5 MG/325 MG TABLET PO PRN ×3 (04:22→21:33)
[2017-06-29] MEDS: SODIUM CHLORIDE 0.9% 1,000 ML IV SCH ×2 (05:45→15:51)
[2017-06-29] MEDS: SODIUM CHLORIDE FLUSH 0.9% 10 ML SYRINGE IVP SCH ×3 (05:46→21:33)
[2017-06-29 06:37] LABS: BASOPHILS % (AUTO) 0.3 %; EOSINOPHILS # (AUTO) 0.1 10^3/uL (0.0-0.7); HGB - HEMOGLOBIN 9.2 g/dL (14.0-18.0); LYMPHOCYTES # (AUTO) 0.9 10^3/uL (1.5-3.5); LYMPHOCYTES % (AUTO) 9.1 %; MEAN CORPUSCULAR HEMOGLOBIN 30.6 pg (27.0-31.0); MEAN CORPUSCULAR HGB CONC 34.2 g/dL (32.0-36.0); MEAN CORPUSCULAR VOLUME 89.5 fL (80.0-94.0); MEAN PLATELET VOLUME 7.7 fL (7.4-11.4); MONOCYTES # (AUTO) 0.8 10^3/uL (0.0-1.0); MONOCYTES % (AUTO) 8.2 %; NEUTROPHILS # (AUTO) 8.2 10^3/uL (1.5-6.6); NEUTROPHILS % (AUTO) 81.4 %; PLT - PLATELET COUNT 180 10^3/uL (130-450); RED CELL DISTRIBUTION WIDTH 14.2 % (12.0-15.0)
[2017-06-29] MEDS: ASPIRIN 325 MG TABLET PO SCH ×2 (09:20→16:46)
[2017-06-29] MEDS: FAMOTIDINE 20 MG TABLET PO SCH (09:21)
[2017-06-29] MEDS: CALCIUM CARBONATE CHEW 500 MG TABLET PO SCH ×2 (09:21→21:33)
[2017-06-29] MEDS: AMIODARONE 200 MG TABLET PO SCH (09:21)
[2017-06-29] MEDS: LISINOPRIL 5 MG TABLET PO SCH (09:21)
[2017-06-29] MEDS: SENNA 8.6 MG TABLET PO SCH (09:22)
[2017-06-29] MEDS: FINASTERIDE 5 MG TABLET PO SCH (09:22)
[2017-06-29] MEDS: ISOSORBIDE MONONITRATE ER 30 MG TABLET PO SCH (09:22)
[2017-06-29] MEDS: METOPROLOL SUCCINATE 50 MG TABLET PO SCH (09:22)
[2017-06-29] MEDS: POLYETHYLENE GLYCOL 3350 17 GM PACKET PO SCH (09:23)
[2017-06-29] MEDS: NEOMYCIN/POLYMYX/DEXAMETH OPHTH DROPS 5 ML EACHEYE SCH (09:26)
--- NOTE | 2017-06-29 09:49 | PROVIDER PROGRESS NOTE ---
Subjective - Prog Note Date Prog Note Date: 06/29/17 Prog Note Time: 09:47 - Subjective Pt reports feeling: Improved (Less pain.) Objective - Vital Signs/Intake & Output Vital Signs: Vital Signs x48h Temp Pulse Pulse Resp BP Pulse Ox 06/29/17 09:00 36.4 C L 76 24 123/39 L 95 06/29/17 05:00 36.8 C 78 18 126/48 L 95 Intake & Output: Intake & Output 06/26/17 06/27/17 06/28/17 06/29/17 23:59 23:59 23:59 23:59 Intake Total 1481 069 4136.667 1325 Output Total 425 1200 1125 850 Balance 1115 -1000 2216.667 475 - Lab Results Fish Bones: 06/29/17 05:58 06/26/17 14:21 Other Labs: Lab Results x24hrs 06/29/17 Range/Units 05:58 WBC 10.0 (4.8-10.8) x10^3/uL RBC 3.00 L (4.70-6.10) 10^6/uL Hgb 9.2 L (14.0-18.0) g/dL Hct 26.8 L (42.0-52.0) % MCV 89.5 (80.0-94.0) fL MCH 30.6 (27.0-31.0) pg MCHC 34.2 (32.0-36.0) g/dL RDW 14.2 (12.0-15.0) % Plt Count 180 (130-450) 10^3/uL MPV 7.7 (7.4-11.4) fL Neut # 8.2 H (1.5-6.6) 10^3/uL Lymph # 0.9 L (1.5-3.5) 10^3/uL [place] # 0.8 (0.0-1.0) 10^3/uL Eos # 0.1 (0.0-0.7) 10^3/uL Baso # 0.0 (0.0-0.1) 10^3/uL Absolute Nucleated RBC 0.00 x10^3/uL Nucleated RBC % 0.0 /100WBC - Other Results/Comments Other Results/Comments: EXAM: Dressing intact. Mild pain with hip motion. Sensation intact. Moves toes well. Up in PT Assessment/Plan - Problem List (1) Hip fracture Impression: satis post op PLAN: To snf in AM. Follow up in 2 weeks in ortho clinic. Walker ambulate - WBAT on right. THR precautions. Qualifiers: Encounter type: initial encounter Fracture type: closed Laterality: right Qualified Code(s): S72.001A - Fracture of unspecified part of neck of right femur, initial encounter for closed fracture
--- NOTE | 2017-06-29 21:24 | PROVIDER PROGRESS NOTE ---
Assessment/Plan - Problem List (1) Hip fracture Qualifiers: Encounter type: initial encounter Fracture type: closed Laterality: right Qualified Code(s): S72.001A - Fracture of unspecified part of neck of right femur, initial encounter for closed fracture Assessment/Plan: POD#1 s/p Right hip hemiprosthesis with removal of screws by Dr Macias without complications, EBL 600 cc (despite only 1 day off Plavix) Patient complaining of back pain today Patient was able to do limited work with PT today as he could only sit up at the side of the bed and could not stand or walk due to pain and BP being low (2) Chronic Back Pain Assessment/Plan: Patient complaining of severe pain in his back Believes it is worsened by lying in bed and having and binder around his legs Patient on percocet and IV tylenol but pain is uncontrolled Will start IV morphine today (3) CAD (coronary artery disease) Assessment/Plan: stable (4) Hypertension Qualifiers: Hypertension type: essential hypertension Qualified Code(s): I10 - Essential (primary) hypertension Assessment/Plan: BP is stable COntinue home medication (5) Arrhythmia Assessment/Plan: 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 Today atrial pacing is seen -- normal functioning AICD as a demand pacemaker - Current Meds Current Meds: Current Medications Generic Name Dose Route Start Last Admin Trade Name Freq PRN Reason Stop Dose Admin Acetaminophen 650 - 975 mg 06/27/17 12:31 06/29/17 09:20 Tylenol PO 650 mg Q4HR PRN Administration PAIN Amiodarone HCl 100 mg 06/27/17 09:00 06/29/17 09:21 Pacerone PO 100 mg DAILY OMAR Administration Aspirin 325 mg 06/27/17 17:00 06/29/17 16:46 Donald PO 325 mg BIDWM OMAR Administration Calcium Carbonate/Glycine 500 mg 06/27/17 18:00 06/29/17 09:21 Tums PO 500 mg BID OMAR Administration Doxazosin Mesylate 2 mg 06/26/17 21:00 06/28/17 21:44 Cardura PO 2 mg QPM OMAR Administration Famotidine 20 mg 06/27/17 09:00 06/29/17 09:21 Pepcid PO 20 mg DAILY OMAR Administration Finasteride 5 mg 06/27/17 09:00 06/29/17 09:22 Proscar PO 5 mg DAILY OMAR Administration Sodium Chloride 1,000 mls @ 100 mls/hr 06/27/17 13:00 06/29/17 15:51 Normal Saline 0.9% IV 100 mls/hr .Q10H OMAR Administration Isosorbide Mononitrate 30 mg 06/27/17 09:00 06/29/17 09:22 Imdur PO 30 mg DAILY OMAR Administration Lidocaine 1 patch 06/26/17 15:31 06/28/17 02:56 Lidoderm Patch TOP 1 patch DAILY PRN Administration PAIN Lisinopril 2.5 mg 06/27/17 09:00 06/29/17 09:21 Zestril PO 2.5 mg DAILY OMAR Administration Metoprolol Succinate 50 mg 06/27/17 09:00 06/29/17 09:22 Toprol Xl PO 50 mg DAILY OMAR Administration Morphine Sulfate 2 mg 06/27/17 12:31 06/29/17 17:36 Morphine (Carpuject) IVP 2 mg Q2HR PRN Administration PAIN Neomycin/Polymyxin/Dexamethasone 2 drops 06/27/17 09:00 06/29/17 09:26 Maxitrol Ophth Drops EACHEYE 2 drops DAILY OMAR Administration Oxycodone/Acetaminophen 1 tab 06/27/17 12:31 06/29/17 13:11 Percocet 5 Mg/325 Mg PO 1 tab Q4HR PRN Administration PAIN Polyethylene Glycol 17 gm 06/27/17 09:00 06/29/17 09:23 Miralax PO 17 gm DAILY OMAR Administration Senna 8.6 - 17.2 mg 06/29/17 09:00 06/29/17 09:22 Senokot PO 8.6 mg DAILY OMAR Administration Sodium Chloride 10 ml 06/27/17 14:00 06/29/17 14:37 Normal Saline Flush 0.9% IVP 10 ml Q8HR OMAR Administration - Lab Result Lab results reviewed: Yes Fish Bone Diagrams: 06/29/17 05:58 06/26/17 14:21 - Additional Planning Condition/Complexity: Guarded My Orders: My Active Orders 06/29/17 09:00 Senna [Senokot] 8.6 - 17.2 mg PO DAILY Consult/Specialty: PT, Other (Ortho) Plan Discussed with:: Patient, Family Time Spent: 31-60 minutes Subjective - Subjective Patient Reports: Pain (Complaining mostly of back pain and states hip is not bothering him so much), Other (No fever or chills, no shortness of breath) Nursing Reports: No Complaints Objective Vital Signs: Vital Signs - 24 hr 06/29/17 06/29/17 06/29/17 00:51 05:00 09:00 Temperature 36.8 C 36.8 C 36.4 C L Heart Rate [ 71 78 Brachial] Heart Rate [ 76 Radial] Respiratory 18 18 24 Rate Blood Pressure 113/38 L 126/48 L 123/39 L [Right Brachial artery] Blood Pressure [Sitting] Blood Pressure [Supine] O2 Saturation 92 95 95 06/29/17 06/29/17 06/29/17 13:00 13:23 16:47 Temperature 36.3 C L 36.7 C Heart Rate [ 69 Brachial] Heart Rate [ 71 Radial] Respiratory 26 H Rate Blood Pressure 118/41 L 125/45 L [Right Brachial artery] Blood Pressure 123/47 L [Sitting] Blood Pressure 122/41 L [Supine] O2 Saturation 97 96 06/29/17 20:16 Temperature 36.5 C Heart Rate [ 71 Brachial] Heart Rate [ Radial] Respiratory 24 Rate Blood Pressure 132/44 H [Right Brachial artery] Blood Pressure [Sitting] Blood Pressure [Supine] O2 Saturation 93 Oxygen O2 Source [With Activity] Room air O2 Source Nasal cannula I&O (Last 24 Hrs): Intake and Output Totals x24h 06/27/17 06/28/17 06/29/17 23:59 23:59 23:59 Intake Total 200 3341.667 3245 Output Total 1200 1125 1225 Balance -1000 2216.667 2020 General: Alert, Oriented x3, Cooperative, Mild distress (Pain) HEENT: Atraumatic, PERRLA, EOMI, Mucous membr. moist/pink Neck: Supple, No JVD, No thyromegaly, +2 carotid pulse wo bruit, No LAD Lymphatic: no adenopathy Neuro: Alert, Non Focal, CN 2-12 Grossly Intact, Oriented Times 3 Cardiovascular: Regular rate, Normal S1, Normal S2, No murmurs Respiratory: Chest non-tender, No respiratory distress, Breath sounds nml Abdomen: Soft, No tenderness, No hepatospenomegaly Extremities: No cyanosis, No edema, Normal pulses, Other (Normal post op swelling and changes of hip) Skin: No rashes - Results Results: Laboratory Results WBC 10.0 x10^3/uL (4.8-10.8) 06/29/17 05:58 RBC 3.00 10^6/uL (4.70-6.10) L 06/29/17 05:58 Hgb 9.2 g/dL (14.0-18.0) L 06/29/17 05:58 Hct 26.8 % (42.0-52.0) L 06/29/17 05:58 MCV 89.5 fL (80.0-94.0) 06/29/17 05:58 MCH 30.6 pg (27.0-31.0) 06/29/17 05:58 MCHC 34.2 g/dL (32.0-36.0) 06/29/17 05:58 RDW 14.2 % (12.0-15.0) 06/29/17 05:58 Plt Count 180 10^3/uL (130-450) 06/29/17 05:58 MPV 7.7 fL (7.4-11.4) 06/29/17 05:58 Neut # 8.2 10^3/uL (1.5-6.6) H 06/29/17 05:58 Lymph # 0.9 10^3/uL (1.5-3.5) L 06/29/17 05:58 [place] # 0.8 10^3/uL (0.0-1.0) 06/29/17 05:58 Eos # 0.1 10^3/uL (0.0-0.7) 06/29/17 05:58 Baso # 0.0 10^3/uL (0.0-0.1) 06/29/17 05:58 Absolute Nucleated RBC 0.00 x10^3/uL 06/29/17 05:58 Nucleated RBC % 0.0 /100WBC 06/29/17 05:58 PT 12.7 secs (9.9-12.6) H 06/26/17 14:21 INR 1.1 (0.8-1.2) 06/26/17 14:21 Sodium 134 mmol/L (135-145) L 06/26/17 14:21 Potassium 4.3 mmol/L (3.5-5.0) 06/26/17 14:21 Chloride 99 mmol/L (101-111) L 06/26/17 14:21 Carbon Dioxide 24 mmol/L (21-32) 06/26/17 14:21 Anion Gap 11.0 (6-13) 06/26/17 14:21 BUN 17 mg/dL (6-20) 06/26/17 14:21 Creatinine 1.0 mg/dL (0.6-1.2) 06/26/17 14:21 Estimated GFR (MDRD) 72 (>89) L 06/26/17 14:21 Glucose 125 mg/dL (70-100) H 06/26/17 14:21 Calcium 9.0 mg/dL (8.5-10.3) 06/26/17 14:21 Total Bilirubin 1.0 mg/dL (0.2-1.0) 06/26/17 14:21 AST 19 IU/L (10-42) 06/26/17 14:21 ALT 16 IU/L (10-60) 06/26/17 14:21 Alkaline Phosphatase 90 IU/L (42-121) 06/26/17 14:21 Total Protein 6.6 g/dL (6.7-8.2) L 06/26/17 14:21 Albumin 3.5 g/dL (3.2-5.5) 06/26/17 14:21 Globulin 3.1 g/dL (2.1-4.2) 06/26/17 14:21 Albumin/Globulin Ratio 1.1 (1.0-2.2) 06/26/17 14:21 Lipase 18 U/L (22-51) L 06/26/17 14:21 Blood Type A NEGATIVE 06/26/17 16:50 Antibody Screen NEGATIVE 06/26/17 16:50 - Procedures Procedures: Procedures INSERTION OF INT FIX INTO R UP FEMUR, PERC APPROACH (05/29/17)
[2017-06-29] MEDS: DOXAZOSIN 1 MG TABLET PO SCH (21:33)
--- NOTE | 2017-06-29 21:35 | PROVIDER PROGRESS NOTE ---
Assessment/Plan - Problem List (1) Hip fracture Qualifiers: Encounter type: initial encounter Fracture type: closed Laterality: right Qualified Code(s): S72.001A - Fracture of unspecified part of neck of right femur, initial encounter for closed fracture Assessment/Plan: POD#2 s/p Right hip hemiprosthesis with removal of screws by Dr Macias without complications, EBL 600 cc (despite only 1 day off Plavix) Patients main concern again today is his back pain Patient to get up with PT today Will likely need 1-2 more days of PT in the hospital and at this rate will likely need SNF placement social work notified (2) Chronic Back Pain Assessment/Plan: Continues to have pain Believes it is worsened by lying in bed and having and binder around his legs which cannot be removed as Dr Macias is concerned about dislocation of the hip Patient on percocet, IV tylenol and IV morphine will add lidocaine patch (3) CAD (coronary artery disease) Assessment/Plan: stable Restart plavix (4) Hypertension Qualifiers: Hypertension type: essential hypertension Qualified Code(s): I10 - Essential (primary) hypertension Assessment/Plan: BP is stable COntinue home medication (5) Arrhythmia Assessment/Plan: 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 Today atrial pacing is seen -- normal functioning AICD as a demand pacemaker - Current Meds Current Meds: Current Medications Generic Name Dose Route Start Last Admin Trade Name Freq PRN Reason Stop Dose Admin Acetaminophen 650 - 975 mg 06/27/17 12:31 06/29/17 09:20 Tylenol PO 650 mg Q4HR PRN Administration PAIN Amiodarone HCl 100 mg 06/27/17 09:00 06/29/17 09:21 Pacerone PO 100 mg DAILY OMAR Administration Aspirin 325 mg 06/27/17 17:00 06/29/17 16:46 Donald PO 325 mg BIDWM OMAR Administration Calcium Carbonate/Glycine 500 mg 06/27/17 18:00 06/29/17 09:21 Tums PO 500 mg BID OMAR Administration Doxazosin Mesylate 2 mg 06/26/17 21:00 06/28/17 21:44 Cardura PO 2 mg QPM OMAR Administration Famotidine 20 mg 06/27/17 09:00 06/29/17 09:21 Pepcid PO 20 mg DAILY OMAR Administration Finasteride 5 mg 06/27/17 09:00 06/29/17 09:22 Proscar PO 5 mg DAILY OMAR Administration Sodium Chloride 1,000 mls @ 100 mls/hr 06/27/17 13:00 06/29/17 15:51 Normal Saline 0.9% IV 100 mls/hr .Q10H OMAR Administration Isosorbide Mononitrate 30 mg 06/27/17 09:00 06/29/17 09:22 Imdur PO 30 mg DAILY OMAR Administration Lidocaine 1 patch 06/26/17 15:31 06/28/17 02:56 Lidoderm Patch TOP 1 patch DAILY PRN Administration PAIN Lisinopril 2.5 mg 06/27/17 09:00 06/29/17 09:21 Zestril PO 2.5 mg DAILY OMAR Administration Metoprolol Succinate 50 mg 06/27/17 09:00 06/29/17 09:22 Toprol Xl PO 50 mg DAILY OMAR Administration Morphine Sulfate 2 mg 06/27/17 12:31 06/29/17 17:36 Morphine (Carpuject) IVP 2 mg Q2HR PRN Administration PAIN Neomycin/Polymyxin/Dexamethasone 2 drops 06/27/17 09:00 06/29/17 09:26 Maxitrol Ophth Drops EACHEYE 2 drops DAILY OMAR Administration Oxycodone/Acetaminophen 1 tab 06/27/17 12:31 06/29/17 13:11 Percocet 5 Mg/325 Mg PO 1 tab Q4HR PRN Administration PAIN Polyethylene Glycol 17 gm 06/27/17 09:00 06/29/17 09:23 Miralax PO 17 gm DAILY OMAR Administration Senna 8.6 - 17.2 mg 06/29/17 09:00 06/29/17 09:22 Senokot PO 8.6 mg DAILY OMAR Administration Sodium Chloride 10 ml 06/27/17 14:00 06/29/17 14:37 Normal Saline Flush 0.9% IVP 10 ml Q8HR OMAR Administration - Lab Result Lab results reviewed: Yes Fish Bone Diagrams: 06/29/17 05:58 06/26/17 14:21 - Diagnostic Imaging Results Diagnostic Imaging Results: Final report reviewed - Additional Planning Condition/Complexity: Guarded My Orders: My Active Orders 06/29/17 09:00 Senna [Senokot] 8.6 - 17.2 mg PO DAILY Consult/Specialty: PT, Other (Ortho) Time Spent: 31-60 minutes Subjective - Subjective Patient Reports: Pain (Continues to have back pain but pain in hip is limited to when he moves around), Other (No fevers or chills) Nursing Reports: No Complaints Objective Vital Signs: Vital Signs - 24 hr 06/29/17 06/29/17 06/29/17 00:51 05:00 09:00 Temperature 36.8 C 36.8 C 36.4 C L Heart Rate [ 71 78 Brachial] Heart Rate [ 76 Radial] Respiratory 18 18 24 Rate Blood Pressure 113/38 L 126/48 L 123/39 L [Right Brachial artery] Blood Pressure [Sitting] Blood Pressure [Supine] O2 Saturation 92 95 95 06/29/17 06/29/17 06/29/17 13:00 13:23 16:47 Temperature 36.3 C L 36.7 C Heart Rate [ 69 Brachial] Heart Rate [ 71 Radial] Respiratory 26 H Rate Blood Pressure 118/41 L 125/45 L [Right Brachial artery] Blood Pressure 123/47 L [Sitting] Blood Pressure 122/41 L [Supine] O2 Saturation 97 96 06/29/17 20:16 Temperature 36.5 C Heart Rate [ 71 Brachial] Heart Rate [ Radial] Respiratory 24 Rate Blood Pressure 132/44 H [Right Brachial artery] Blood Pressure [Sitting] Blood Pressure [Supine] O2 Saturation 93 Oxygen O2 Source [With Activity] Room air O2 Source Nasal cannula I&O (Last 24 Hrs): Intake and Output Totals x24h 06/27/17 06/28/17 06/29/17 23:59 23:59 23:59 Intake Total 200 3341.667 3395 Output Total 1200 1125 1525 Balance -1000 2216.667 1870 General: Alert, Oriented x3, Cooperative, Mild distress (Back pain) HEENT: Atraumatic, PERRLA, EOMI, Mucous membr. moist/pink Neck: Supple, No JVD, No thyromegaly, +2 carotid pulse wo bruit, No LAD Lymphatic: no adenopathy Neuro: Alert, Non Focal, CN 2-12 Grossly Intact, Oriented Times 3 Cardiovascular: Regular rate, Normal S1, Normal S2, No murmurs Respiratory: Chest non-tender, No respiratory distress, Rales (Bases mild) Abdomen: Normal bowel sounds, Soft, No tenderness, No hepatospenomegaly Extremities: No clubbing, No cyanosis, No edema, Other (Post op changes of hip) Skin: No rashes, No breakdown - Results Results: Laboratory Results WBC 10.0 x10^3/uL (4.8-10.8) 06/29/17 05:58 RBC 3.00 10^6/uL (4.70-6.10) L 06/29/17 05:58 Hgb 9.2 g/dL (14.0-18.0) L 06/29/17 05:58 Hct 26.8 % (42.0-52.0) L 06/29/17 05:58 MCV 89.5 fL (80.0-94.0) 06/29/17 05:58 MCH 30.6 pg (27.0-31.0) 06/29/17 05:58 MCHC 34.2 g/dL (32.0-36.0) 06/29/17 05:58 RDW 14.2 % (12.0-15.0) 06/29/17 05:58 Plt Count 180 10^3/uL (130-450) 06/29/17 05:58 MPV 7.7 fL (7.4-11.4) 06/29/17 05:58 Neut # 8.2 10^3/uL (1.5-6.6) H 06/29/17 05:58 Lymph # 0.9 10^3/uL (1.5-3.5) L 06/29/17 05:58 [place] # 0.8 10^3/uL (0.0-1.0) 06/29/17 05:58 Eos # 0.1 10^3/uL (0.0-0.7) 06/29/17 05:58 Baso # 0.0 10^3/uL (0.0-0.1) 06/29/17 05:58 Absolute Nucleated RBC 0.00 x10^3/uL 06/29/17 05:58 Nucleated RBC % 0.0 /100WBC 06/29/17 05:58 PT 12.7 secs (9.9-12.6) H 06/26/17 14:21 INR 1.1 (0.8-1.2) 06/26/17 14:21 Sodium 134 mmol/L (135-145) L 06/26/17 14:21 Potassium 4.3 mmol/L (3.5-5.0) 06/26/17 14:21 Chloride 99 mmol/L (101-111) L 06/26/17 14:21 Carbon Dioxide 24 mmol/L (21-32) 06/26/17 14:21 Anion Gap 11.0 (6-13) 06/26/17 14:21 BUN 17 mg/dL (6-20) 06/26/17 14:21 Creatinine 1.0 mg/dL (0.6-1.2) 06/26/17 14:21 Estimated GFR (MDRD) 72 (>89) L 06/26/17 14:21 Glucose 125 mg/dL (70-100) H 06/26/17 14:21 Calcium 9.0 mg/dL (8.5-10.3) 06/26/17 14:21 Total Bilirubin 1.0 mg/dL (0.2-1.0) 06/26/17 14:21 AST 19 IU/L (10-42) 06/26/17 14:21 ALT 16 IU/L (10-60) 06/26/17 14:21 Alkaline Phosphatase 90 IU/L (42-121) 06/26/17 14:21 Total Protein 6.6 g/dL (6.7-8.2) L 06/26/17 14:21 Albumin 3.5 g/dL (3.2-5.5) 06/26/17 14:21 Globulin 3.1 g/dL (2.1-4.2) 06/26/17 14:21 Albumin/Globulin Ratio 1.1 (1.0-2.2) 06/26/17 14:21 Lipase 18 U/L (22-51) L 06/26/17 14:21 Blood Type A NEGATIVE 06/26/17 16:50 Antibody Screen NEGATIVE 06/26/17 16:50 - Procedures Procedures: Procedures INSERTION OF INT FIX INTO R UP FEMUR, PERC APPROACH (05/29/17)
[2017-06-30] MEDS: MORPHINE 2 MG/ML CARPUJECT IVP PRN ×5 (00:31→13:44)
[2017-06-30] MEDS: SODIUM CHLORIDE 0.9% 1,000 ML IV SCH ×2 (01:48→11:57)
[2017-06-30] MEDS: oxyCOD/ACETAMIN 5 MG/325 MG TABLET PO PRN ×4 (06:24→21:28)
[2017-06-30] MEDS: SODIUM CHLORIDE FLUSH 0.9% 10 ML SYRINGE IVP SCH ×3 (06:54→21:32)
[2017-06-30] MEDS: LIDOCAINE PATCH 5% TOP PRN (09:37)
[2017-06-30] MEDS: POLYETHYLENE GLYCOL 3350 17 GM PACKET PO SCH (09:54)
[2017-06-30] MEDS: ASPIRIN 325 MG TABLET PO SCH ×2 (09:58→16:55)
[2017-06-30] MEDS: FAMOTIDINE 20 MG TABLET PO SCH (09:58)
[2017-06-30] MEDS: FINASTERIDE 5 MG TABLET PO SCH (09:58)
[2017-06-30] MEDS: CLOPIDOGREL 75 MG TABLET PO SCH (09:58)
[2017-06-30] MEDS: CALCIUM CARBONATE CHEW 500 MG TABLET PO SCH ×2 (09:58→21:28)
[2017-06-30] MEDS: SENNA 8.6 MG TABLET PO SCH (09:58)
[2017-06-30] MEDS: NEOMYCIN/POLYMYX/DEXAMETH OPHTH DROPS 5 ML EACHEYE SCH (12:05)
[2017-06-30] MEDS: ISOSORBIDE MONONITRATE ER 30 MG TABLET PO SCH (12:14)
[2017-06-30] MEDS: AMIODARONE 200 MG TABLET PO SCH (12:14)
[2017-06-30] MEDS: SODIUM CHLORIDE FLUSH 0.9% 10 ML SYRINGE IVP PRN (13:45)
[2017-06-30] MEDS: METOPROLOL SUCCINATE 50 MG TABLET PO SCH (14:34)
[2017-06-30] MEDS: LISINOPRIL 5 MG TABLET PO SCH (14:34)
[2017-06-30] MEDS ORDERED: LISINOPRIL 5 MG TABLET PO SCH (16:22)
[2017-06-30] MEDS ORDERED: ZOLPIDEM 5 MG TABLET PO PRN (16:23)
[2017-06-30] MEDS ORDERED: ISOSORBIDE MONONITRATE ER 30 MG TABLET PO SCH (16:24)
[2017-06-30] MEDS: DOCUSATE SODIUM 250 MG CAPSULE PO SCH (16:55)
[2017-06-30] MEDS ORDERED: BISACODYL 10 MG SUPP PR ONE (18:37)
[2017-06-30] MEDS ORDERED: MAGNESIUM HYDROXIDE 2,400 MG/30 ML UDC PO SCH (20:48)
[2017-06-30] MEDS: DOXAZOSIN 1 MG TABLET PO SCH (21:28)
--- NOTE | 2017-06-30 23:12 | PROVIDER PROGRESS NOTE ---
Assessment/Plan - Problem List (1) Hip fracture Qualifiers: Encounter type: initial encounter Fracture type: closed Laterality: right Qualified Code(s): S72.001A - Fracture of unspecified part of neck of right femur, initial encounter for closed fracture Assessment/Plan: Patient in a binder, ordered by Ortho. PT to try weight bearing today. After this admission he will require a SNF for further PT, not Home Health PT, as he had with his last recent hip surgery. SW is working on placement in a SNF for short term rehab. (2) CAD (coronary artery disease) Assessment/Plan: Stable. (3) Hypertension Qualifiers: Hypertension type: essential hypertension Qualified Code(s): I10 - Essential (primary) hypertension Assessment/Plan: Stable. - Current Meds Current Meds: Current Medications Generic Name Dose Route Start Last Admin Trade Name Freq PRN Reason Stop Dose Admin Acetaminophen 650 - 975 mg 06/27/17 12:31 06/29/17 09:20 Tylenol PO 650 mg Q4HR PRN Administration PAIN Amiodarone HCl 100 mg 06/27/17 09:00 06/30/17 12:14 Pacerone PO 100 mg DAILY OMAR Administration Aspirin 325 mg 06/27/17 17:00 06/30/17 16:55 Donald PO 325 mg BIDWM OMAR Administration Calcium Carbonate/Glycine 500 mg 06/27/17 18:00 06/30/17 21:28 Tums PO 500 mg BID OMAR Administration Clopidogrel Bisulfate 75 mg 06/30/17 09:00 06/30/17 09:58 Plavix PO 75 mg DAILY OMAR Administration Docusate Sodium 250 - 500 mg 06/30/17 17:00 06/30/17 16:55 Colace 250mg Capsule PO 500 mg DAILY OMAR Administration Doxazosin Mesylate 2 mg 06/26/17 21:00 06/30/17 21:28 Cardura PO 2 mg QPM OMAR Administration Famotidine 20 mg 06/27/17 09:00 06/30/17 09:58 Pepcid PO 20 mg DAILY OMAR Administration Finasteride 5 mg 06/27/17 09:00 06/30/17 09:58 Proscar PO 5 mg DAILY OMAR Administration Lidocaine 1 patch 06/26/17 15:31 06/30/17 09:37 Lidoderm Patch TOP 1 patch DAILY PRN Administration PAIN Metoprolol Succinate 50 mg 06/27/17 09:00 06/30/17 14:34 Toprol Xl PO Not Given DAILY OMAR Morphine Sulfate 2 mg 06/27/17 12:31 06/30/17 13:44 Morphine (Carpuject) IVP 2 mg Q2HR PRN Administration PAIN Neomycin/Polymyxin/Dexamethasone 2 drops 06/27/17 09:00 06/30/17 12:05 Maxitrol Ophth Drops EACHEYE 2 drops DAILY OMAR Administration Oxycodone/Acetaminophen 1 tab 06/27/17 12:31 06/30/17 21:28 Percocet 5 Mg/325 Mg PO 1 tab Q4HR PRN Administration PAIN Polyethylene Glycol 17 gm 06/27/17 09:00 06/30/17 09:54 Miralax PO 17 gm DAILY OMAR Administration Senna 8.6 - 17.2 mg 06/29/17 09:00 06/30/17 09:58 Senokot PO 17.2 mg DAILY OMAR Administration Sodium Chloride 10 ml 06/27/17 14:00 06/30/17 21:32 Normal Saline Flush 0.9% IVP 10 ml Q8HR OMAR Administration Sodium Chloride 10 ml 06/27/17 12:31 06/30/17 13:45 Normal Saline Flush 0.9% IVP 10 ml PRN PRN Administration NEEDED PER PROVIDER ORDERS - Lab Result Fish Bone Diagrams: 06/29/17 05:58 06/26/17 14:21 - Additional Planning My Orders: My Active Orders 06/30/17 16:22 Lisinopril [Zestril] 1.25 mg PO DAILY 06/30/17 16:23 Zolpidem [Ambien] 2.5 mg PO QPM PRN 06/30/17 16:24 Isosorbide Mononitrate ER [Imdur] 15 mg PO DAILY Subjective - Subjective Patient Reports: Feeling Better Nursing Reports: No Complaints Objective Vital Signs: Vital Signs - 24 hr 06/30/17 06/30/17 06/30/17 00:41 05:00 07:49 Temperature 36.8 C 36.6 C 36.9 C Heart Rate [ 70 78 74 Brachial] Respiratory 18 16 18 Rate Blood Pressure 134/46 H 152/43 H 134/50 H [Right Brachial artery] O2 Saturation 94 92 93 06/30/17 06/30/17 06/30/17 13:00 15:45 19:08 Temperature 36.6 C 36.7 C Heart Rate [ 76 71 Brachial] Respiratory 18 16 19 Rate Blood Pressure 126/43 L 122/47 L [Right Brachial artery] O2 Saturation 96 96 92 06/30/17 19:57 Temperature 36.7 C Heart Rate [ 72 Brachial] Respiratory 20 Rate Blood Pressure 137/42 H [Right Brachial artery] O2 Saturation 93 Oxygen O2 Source [With Activity] Room air O2 Source Room air I&O (Last 24 Hrs): Intake and Output Totals x24h 06/28/17 06/29/17 06/30/17 23:59 23:59 23:59 Intake Total 3341.667 3395 5157.000 Output Total 1125 1800 1580 Balance 2216.667 1595 3577.000 General: Alert HEENT: Mucous membr. moist/pink Neck: Supple Neuro: Non Focal Cardiovascular: No murmurs Respiratory: Other (Diminished breath sounds) Abdomen: Soft Extremities: No edema - Results Results: Laboratory Results WBC 10.0 x10^3/uL (4.8-10.8) 06/29/17 05:58 RBC 3.00 10^6/uL (4.70-6.10) L 06/29/17 05:58 Hgb 9.2 g/dL (14.0-18.0) L 06/29/17 05:58 Hct 26.8 % (42.0-52.0) L 06/29/17 05:58 MCV 89.5 fL (80.0-94.0) 06/29/17 05:58 MCH 30.6 pg (27.0-31.0) 06/29/17 05:58 MCHC 34.2 g/dL (32.0-36.0) 06/29/17 05:58 RDW 14.2 % (12.0-15.0) 06/29/17 05:58 Plt Count 180 10^3/uL (130-450) 06/29/17 05:58 MPV 7.7 fL (7.4-11.4) 06/29/17 05:58 Neut # 8.2 10^3/uL (1.5-6.6) H 06/29/17 05:58 Lymph # 0.9 10^3/uL (1.5-3.5) L 06/29/17 05:58 [place] # 0.8 10^3/uL (0.0-1.0) 06/29/17 05:58 Eos # 0.1 10^3/uL (0.0-0.7) 06/29/17 05:58 Baso # 0.0 10^3/uL (0.0-0.1) 06/29/17 05:58 Absolute Nucleated RBC 0.00 x10^3/uL 06/29/17 05:58 Nucleated RBC % 0.0 /100WBC 06/29/17 05:58 PT 12.7 secs (9.9-12.6) H 06/26/17 14:21 INR 1.1 (0.8-1.2) 06/26/17 14:21 Sodium 134 mmol/L (135-145) L 06/26/17 14:21 Potassium 4.3 mmol/L (3.5-5.0) 06/26/17 14:21 Chloride 99 mmol/L (101-111) L 06/26/17 14:21 Carbon Dioxide 24 mmol/L (21-32) 06/26/17 14:21 Anion Gap 11.0 (6-13) 06/26/17 14:21 BUN 17 mg/dL (6-20) 06/26/17 14:21 Creatinine 1.0 mg/dL (0.6-1.2) 06/26/17 14:21 Estimated GFR (MDRD) 72 (>89) L 06/26/17 14:21 Glucose 125 mg/dL (70-100) H 06/26/17 14:21 Calcium 9.0 mg/dL (8.5-10.3) 06/26/17 14:21 Total Bilirubin 1.0 mg/dL (0.2-1.0) 06/26/17 14:21 AST 19 IU/L (10-42) 06/26/17 14:21 ALT 16 IU/L (10-60) 06/26/17 14:21 Alkaline Phosphatase 90 IU/L (42-121) 06/26/17 14:21 Total Protein 6.6 g/dL (6.7-8.2) L 06/26/17 14:21 Albumin 3.5 g/dL (3.2-5.5) 06/26/17 14:21 Globulin 3.1 g/dL (2.1-4.2) 06/26/17 14:21 Albumin/Globulin Ratio 1.1 (1.0-2.2) 06/26/17 14:21 Lipase 18 U/L (22-51) L 06/26/17 14:21 Blood Type A NEGATIVE 06/26/17 16:50 Antibody Screen NEGATIVE 06/26/17 16:50 - Procedures Procedures: Procedures INSERTION OF INT FIX INTO R UP FEMUR, PERC APPROACH (05/29/17)
[2017-07-01] MEDS: MORPHINE 2 MG/ML CARPUJECT IVP PRN ×3 (00:38→13:17)
[2017-07-01] MEDS: SODIUM CHLORIDE FLUSH 0.9% 10 ML SYRINGE IVP PRN (00:42)
[2017-07-01] MEDS: oxyCOD/ACETAMIN 5 MG/325 MG TABLET PO PRN ×2 (05:51→11:21)
[2017-07-01] MEDS: SODIUM CHLORIDE FLUSH 0.9% 10 ML SYRINGE IVP SCH ×2 (06:29→08:57)
[2017-07-01] MEDS: LIDOCAINE PATCH 5% TOP PRN (09:02)
[2017-07-01] MEDS: AMIODARONE 200 MG TABLET PO SCH (09:19)
[2017-07-01] MEDS: FAMOTIDINE 20 MG TABLET PO SCH (09:21)
[2017-07-01] MEDS: METOPROLOL SUCCINATE 50 MG TABLET PO SCH (09:21)
[2017-07-01] MEDS: ASPIRIN 325 MG TABLET PO SCH (09:22)
[2017-07-01] MEDS: CLOPIDOGREL 75 MG TABLET PO SCH (09:22)
[2017-07-01] MEDS: FINASTERIDE 5 MG TABLET PO SCH (09:22)
[2017-07-01] MEDS: CALCIUM CARBONATE CHEW 500 MG TABLET PO SCH (09:22)
[2017-07-01] MEDS: NEOMYCIN/POLYMYX/DEXAMETH OPHTH DROPS 5 ML EACHEYE SCH (09:23)
[2017-07-01] MEDS: POLYETHYLENE GLYCOL 3350 17 GM PACKET PO SCH (09:23)
[2017-07-01] MEDS: DOCUSATE SODIUM 250 MG CAPSULE PO SCH (09:23)
[2017-07-01] MEDS: SENNA 8.6 MG TABLET PO SCH (09:23)
--- NOTE | 2017-07-01 11:19 | PROVIDER PROGRESS NOTE ---
Subjective - Prog Note Date Prog Note Date: 07/01/17 Prog Note Time: 11:17 - Subjective Pt reports feeling: Improved (Mild pain. Up with PT on floor) Subjective: No new complaints. No SOB or dizziness when upright Objective - Vital Signs/Intake & Output Vital Signs: Vital Signs x48h Temp Pulse Resp BP Pulse Ox 07/01/17 08:34 36.4 C L 77 18 135/46 H 93 07/01/17 05:50 36.6 C 78 16 131/60 H 97 Intake & Output: Intake & Output 06/28/17 06/29/17 06/30/17 07/01/17 23:59 23:59 23:59 23:59 Intake Total 3341.667 3395 5157.000 340 Output Total 1125 1800 1580 675 Balance 2216.667 1595 3577.000 -335 - Lab Results Fish Bones: 06/29/17 05:58 06/26/17 14:21 - Other Results/Comments Other Results/Comments: EXAM: Dressing intact. Moving hip wiht mild pain. N/V ok distally. Up in PT Assessment/Plan - Problem List (1) Hip fracture Impression: satis post op PLAN: To Snf today or tomorrow. Follow up in 2 weeks in ortho clinic. ASA for 2 weeks. Continue walker ambulate -WBAT on right Qualifiers: Encounter type: initial encounter Fracture type: closed Laterality: right Qualified Code(s): S72.001A - Fracture of unspecified part of neck of right femur, initial encounter for closed fracture
--- NOTE | 2017-07-01 11:33 | Discharge Plan ---
"Discharge Plan for SNF / [facility] - DC Plan and Transition Orders Disposition: 03 SNF DC/Xfer Condition: Stable SNF Transition Orders: Admit to: [facility] under the care of Dr Brina Sol Discharge Diagnosis: 1) Total hip replacement for Right sided closed femur fracture 2) CAD with stent 3) History of AICD for remote cardiac arrest 4) HTN 5) PVD with leg artery stent 6) BPH 7) History of PUD/GERD 8) Code status: Full Code Medicare Certification: I certify that Post Hospital custodial care is medically necessary on a continuing basis for any of the conditions for which she/he is receiving care during hospitalization. Notify PCP of admission and forward orders to primary provider for signature. Weight on admission and weekly. Call PCP immediately if weight increases by 5 pounds or if patient develops dyspnea, chest pain/tightness or edema. House Bowel Program: Yes If no BM after 2 days, nurse may give M.O.M. 30ml PO PRN and /or ducolax Supp 1 ND and /or AMELIE 250mg P.O., and/or senna 1-2 tabs PO. On day 3 nurse may give repeat above order until residents constipation is resolved. Immunizations: Annual Influenza Vaccine: Yes. (between Jan 30 and August 29.) Unless allergy or already given Two-Step PPD: Yes per [facility] [id number] or appropriate documentation of approved exceptions Treatments & Other Orders: Daily PT Eval and treat for OT Oxygen Orders: No Lab Tests or X-Rays Orders: No Orthopedic Orders: F/U with Orthopedics in 1-2 weeks. Medications: PLEASE REFER TO THE DISCHARGE MEDICATION LIST. Insulin Orders? No Allergies and Adverse Reactions: Allergies Allergy/AdvReac Type Severity Reaction Status Date / Time No Known Drug Allergies Allergy Verified 06/26/17 12:50 - Medications New Prescriptions: oxyCODONE/ACET 5/325 [Percocet 5 mg/325 mg] 1 tab PO Q6HR PRN #10 tablet PRN Reason: Pain Calcium Carbonate [Tums (Calcium Carbonate 500mg)] 500 mg PO BID #60 tablet - Diet Type: Geriatric May have monthly special meal: Yes - Therapies | Activity Therapy: Evaluation | Treat if indicated: PT, OT Rehabilitation Potential: Maximize functional status Activity: Wt Bearing as Tolerated Weight Bearing: Full Weight Assistance Devices: Walker Follow Up: Follow-up with Orthopedics in 1-2 weeks"
[2017-07-01 13:12] VITALS: BP 136/50
--- NOTE | 2017-07-19 10:04 | DISCHARGE SUMMARY ---
Physician: Shima Patel MD DATE OF ADMISSION: 06/26/2017 DATE OF DISCHARGE: 07/01/2017 This is an 82-year-old white male with history of coronary artery disease with prior stenting, stress testing done routinely and he had a stress test 3 months ago that was normal, history of a defibrillator for prior cardiac arrest, history of BPH and hypertension. The patient had been admitted here just several weeks previously after a fall and sustained a right hip fracture for which he was cleared medically to undergo orthopedic surgery and had successful hip pinning surgery and was discharged home with home physical therapy. 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 He was hospitalized for repeat right hip surgery. HOSPITAL COURSE AND DISCHARGE DIAGNOSES 1. Hemiprosthesis of the right-sided closed femur fracture and removal of screws. The patient had successful surgery, EBL 600 mL. He required medications for pain control and physical therapy was slowly advanced. He required more aggressive PT than home PT, and he was discharged to a halfway facility ([facility]) for physical therapy rehabilitation. 2. Coronary artery disease with stent. His Plavix was on hold for only 24-48 hours, but resumed after surgery. The patient had no angina during this hospitalization. 3. History of defibrillator for a remote cardiac arrest. There were no dysrhythmias during this admission. His amiodarone was continued. There was proper functioning of the defibrillator in a demand pacing mode seen intermittently on telemetry. 4. Hypertension. The patient was continued on his blood pressure medications throughout this admission. 5. Peripheral vascular disease with leg artery stent. The patient's medications including the Plavix was resumed as for the CAD management. 6. Benign prostatic hypertrophy. The patient's medicines were continued throughout this admission. 7. History of PUD/GERD. The patient's medications were continued throughout this admission. ALLERGIES: NONE. DISCHARGE MEDICATIONS: At the time of discharge: 1. Percocet p.r.n. 2. Amiodarone 100 mg p.o. daily. 3. Tums 500 mg b.i.d. 4. Vitamin D3 2000 units daily. 5. Plavix 75 mg daily. 6. Cardura 2 mg q.p.m. 7. Finasteride 5 mg daily. 8. Imdur 30 mg daily. 9. Lidoderm patch topically daily p.r.n. pain. 10. Lisinopril 2.5 mg daily. 11. Toprol-XL 50 mg daily. 12. Eyedrops. 13. Ranitidine 150 mg b.i.d. 14. Simvastatin 20 mg daily. LABORATORY DATA AND IMAGING: Reviewed and summarized above. CONDITION AT DISCHARGE: Stable. PHYSICAL EXAMINATION AT DISCHARGE VITAL SIGNS: Blood pressure 136/50, pulse of 70 in sinus rhythm, afebrile, and room air saturation 94%. HEENT: Unremarkable. NECK: Without JVD or carotid bruits. CHEST: Clear. HEART: Sounds normal. ABDOMEN: Soft. No bruits. Normal bowel sounds. EXTREMITIES: Trace pedal edema. NEUROLOGIC: Intact. FOLLOWUP: The patient was advised to see Orthopedics 2 weeks after discharge. The patient should see his PCP as previously scheduled. CODE STATUS: FULL CODE. TIME REQUIRED TO COMPLETE THIS ENTIRE DISCHARGE: 60 minutes. TD: 07/19/2017 10:02 [email or web address]
== END 2017-07-01 14:20 | DRG 470 ==
LOC: ED 12:30 → MS2 15:27
PROVIDERS: ADMIT Internal Medicine; ATTEND Internal Medicine
PROC: 0QP604Z Removal of Internal Fixation Device from Right Upper Femur, Open Approach (ICD-10-PCS; 2017-06-27)
PROC: 0SR902A Replacement of Right Hip Joint with Metal on Polyethylene Synthetic Substitute, Uncemented, Open Approach (ICD-10-PCS; principal; 2017-06-27 08:00)
DX: S72.011A Unspecified intracapsular fracture of right femur, initial encounter for closed fracture (principal); S72.011P Unspecified intracapsular fracture of right femur, subsequent encounter for closed fracture with malunion; E78.00 Pure hypercholesterolemia, unspecified; I25.10 Atherosclerotic heart disease of native coronary artery without angina pectoris; I49.9 Cardiac arrhythmia, unspecified; I73.9 Peripheral vascular disease, unspecified; W01.198D Fall on same level from slipping, tripping and stumbling with subsequent striking against other object, subsequent encounter; H91.90 Unspecified hearing loss, unspecified ear; W01.0XXA Fall on same level from slipping, tripping and stumbling without subsequent striking against object, initial encounter; Z91.81 History of falling; Y93.E8 Activity, other personal hygiene; Y92.002 Bathroom of unspecified non-institutional (private) residence as the place of occurrence of the external cause; N40.0 Benign prostatic hyperplasia without lower urinary tract symptoms; I10 Essential (primary) hypertension; K21.9 Gastro-esophageal reflux disease without esophagitis; Z95.828 Presence of other vascular implants and grafts; Z95.5 Presence of coronary angioplasty implant and graft; Z86.74 Personal history of sudden cardiac arrest; Z87.11 Personal history of peptic ulcer disease; Z95.810 Presence of automatic (implantable) cardiac defibrillator; Z79.891 Long term (current) use of opiate analgesic; Z79.02 Long term (current) use of antithrombotics/antiplatelets; Z79.899 Other long term (current) drug therapy
CPT/HCPCS: 36415; 71045; 72170; 80053; 83690; 85025; 85610; 86850; 86900; 86901; 93005; 96374; 96376; 99283; 99285

== ENCOUNTER 2017-07-01 14:17 | Outpatient (CLI) | payer MEDICARE, OTHER | END 2017-07-01 14:18 | LOC: EMS 14:17 | PROVIDERS: ATTEND Surgery | DX: S72.001A Fracture of unspecified part of neck of right femur, initial encounter for closed fracture (principal); W19.XXXA Unspecified fall, initial encounter | CPT/HCPCS: A0425; A0428 ==

== ENCOUNTER 2018-05-25 13:58 | Outpatient (CLI) | payer MEDICARE, OTHER | END 2018-05-25 13:59 | disposition critical access hospital (66) | LOC: EMS 13:58 | PROVIDERS: ATTEND Surgery | DX: R11.2 Nausea with vomiting, unspecified (principal); R19.7 Diarrhea, unspecified; R53.1 Weakness; R10.13 Epigastric pain | CPT/HCPCS: A0425; A0427 ==

== ENCOUNTER 2018-09-13 10:44 | Outpatient (CLI) | payer MEDICARE, OTHER ==
--- NOTE | 2018-09-13 14:19 | CT Report ---
Reason: INTERSTITIAL LUNG DISEASE Procedure Date: 09/13/2018 Accession Number: [id number] / [id number] Procedure: CT - CHEST WO CPT Code: FULL RESULT: EXAM: CT CHEST EXAM DATE: 09/13/2018 11:18 AM. CLINICAL HISTORY: Interstitial lung disease. COMPARISONS: CHEST 1 VIEW 05/25/2018 2:55 PM. TECHNIQUE: Routine high resolution protocol helical CT imaging was performed through the chest. IV contrast: None. Reconstructions: Coronal and sagittal. In accordance with CT protocol optimization, one or more of the following dose reduction techniques were utilized for this exam: automated exposure control, adjustment of mA and/or KV based on patient size, or use of iterative reconstructive technique. FINDINGS: Lungs/Pleura: The lungs are hyperinflated with moderate changes of centrilobular and paraseptal emphysema diffusely. Mild to moderate changes of pulmonary fibrosis present about the lung bases with scattered probable honeycombing. No acute consolidation, focal nodules, effusions or edema evident. No bronchial wall thickening. No evidence for groundglass opacity or air trapping. Mediastinum: The heart is upper limits of normal in size. Pacer wires overlie the right atrium and ventricle. Stents and/or calcifications about the coronary vessels present. No mediastinal mass or adenopathy. Bones: Unremarkable. Visualized Abdomen: There is partial visualization of a common bile duct stent. Pneumobilia present. Surgical clips overlie the gallbladder fossa. A structure which may represent a portion of the gallbladder or dilated common hepatic duct is visualized. Other: None. IMPRESSION: 1. Moderate changes of emphysema. 2. Mild to moderate pulmonary fibrosis about the lung bases. 3. No acute disease or pulmonary nodules. RADIA
== END 2018-09-13 10:45 | disposition home or self-care (01) ==
LOC: DI 10:44
PROVIDERS: ATTEND Internal Medicine Critical Care Medicine
DX: J84.9 Interstitial pulmonary disease, unspecified (principal); J84.10 Pulmonary fibrosis, unspecified; J43.9 Emphysema, unspecified
CPT/HCPCS: 71250

== ENCOUNTER 2018-11-18 08:00 | Outpatient (CLI) | payer MEDICARE, OTHER ==
[2018-11-18] MEDS ORDERED: IOVERSOL 320 50 ML VIAL ONE (08:20)
[2018-11-18] MEDS ORDERED: IOVERSOL 320 100 ML VIAL IVP ONE ×2 (08:20→15:18)
[2018-11-18 08:57] LABS: CREATININE 0.9 mg/dL (0.6-1.2)
[2018-11-18] MEDS ORDERED: IOVERSOL 320 50 ML VIAL PO ONE (15:18)
--- NOTE | 2018-11-19 11:30 | CT Report ---
Reason: ABDOMINAL FLUID COLLECTION Procedure Date: 11/18/2018 Accession Number: [id number] / [id number] Procedure: CT - Abdomen/Pelvis W CPT Code: FULL RESULT: EXAM: CT ABDOMEN AND PELVIS EXAM DATE: 11/18/2018 10:01 AM. CLINICAL HISTORY: Abdominal fluid collection. COMPARISONS: ABDOMEN/PELVIS W/ 05/25/2018 5:59 PM. TECHNIQUE: Routine helical CT imaging was performed through the abdomen and pelvis. IV contrast: 100 mL Optiray 320. Enteric contrast: No. Reconstructions: Coronal and sagittal. In accordance with CT protocol optimization, one or more of the following dose reduction techniques were utilized for this exam: automated exposure control, adjustment of mA and/or KV based on patient size, or use of iterative reconstructive technique. FINDINGS: Lung Bases: Moderate emphysematous changes and peripheral basilar interstitial thickening and minimal bronchiectasis. Liver: Normal. No masses. Gallbladder/Bile Ducts: Interval cholecystectomy and biliary ductal stenting. In the region of the gallbladder fossa is fluid collection which was also demonstrated in May 2018 prior to cholecystectomy which measures up to 4.0 x 4.5 x 3.6 cm, demonstrates a thin wall and no surrounding fat stranding or wall enhancement. 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 Spleen: A nonspecific 1.5 cm splenic hypodensity is unchanged. Pancreas: Gas within the pancreatic duct is expected status post biliary stenting. Adrenal Glands: Normal. Kidneys: Normal. No masses or hydronephrosis. Peritoneal Cavity/Bowel: There is mild to moderate colonic diverticulosis, more pronounced in the descending distribution. There is no bowel obstruction, free air or free fluid. Intraperitoneal and retroperitoneal lymph nodes measure less than 1 cm in short axis and do not meet size criteria. Pelvic Organs: Evaluation is limited from streak artifact related to the right hip arthroplasty. The bladder is distended. Surgical clips are noted in the pelvis. Vasculature: Atherosclerotic disease, moderate without abdominal aortic aneurysm. Bones: No aggressive osseous lesions. Other: None. IMPRESSION: Persistent fluid collection in the gallbladder fossa, favor biliary origin as discussed in detail above. Interval cholecystectomy and biliary ductal stenting. RADIA
== END 2018-11-18 08:01 | disposition home or self-care (01) ==
LOC: DI 08:00
PROVIDERS: ATTEND Internal Medicine Gastroenterology
DX: R18.8 Other ascites (principal)
CPT/HCPCS: 36415; 74177; 82565; Q9967

== ENCOUNTER 2019-03-09 12:52 | Outpatient (CLI) | payer MEDICARE, OTHER | END 2019-03-09 12:53 | disposition critical access hospital (66) | LOC: EMS 12:52 | PROVIDERS: ATTEND Surgery | DX: R55 Syncope and collapse (principal) | CPT/HCPCS: A0425; A0429 ==

== ENCOUNTER 2019-03-09 13:12 | Emergency (ER) | payer MEDICARE, OTHER ==
[2019-03-09] MEDS ORDERED: SODIUM CHLORIDE 0.9% 500 ML IV ONE (13:26)
--- NOTE | 2019-03-09 13:28 | ED Physician Documentation ---
History of Present Illness - Stated complaint Stated Complaint: SYNCOPE - History obtained from History obtained from: Patient - History of Present Illness Timing: Today (This is an 84-year-old gentleman with history of COPD and some heart disease, he is had an AICD that has never defibrillated him that is 9 years old. He was feeling a little weak and dizzy this morning. Not vertiginous per se, just lightheaded. 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 Subsequently he passed out several times in the office. Dr. Contreras reported to me that he was paced during these episodes. At this point he feels pretty much back to normal. He has had some constipation. He is short of breath, from his COPD, but not more than normal. Denies pedal edema or calf pain. No stomach issues other than the constipation.) Review of Systems Ten Systems: 10 systems reviewed and negative Constitutional: reports: Fatigue. denies: Fever, Chills Cardiac: denies: Chest pain / pressure, Palpitations Respiratory: reports: Dyspnea. denies: Cough GI: reports: Constipation. denies: Abdominal Pain, Nausea, Vomiting PD PAST MEDICAL HISTORY - Past Medical History Cardiovascular: Hypertension, High cholesterol, Coronary artery disease, Arrhythmia GI: GERD, Ulcers HEENT: Chronic hearing loss - Past Surgical History Past Surgical History: Yes General: Cholecystectomy Ortho: Hip replacement Cardiovascular: Pacemaker, AICD, Angioplasty, Other - Present Medications Home Medications: Ambulatory Orders Medication Instructions Recorded Confirmed Aclidinium [place] [Tudorza 400 mcg 05/25/18 Pressair] Clopidogrel [Plavix] 75 mg PO ONCE 05/25/18 05/25/18 Doxazosin Mesylate 8 mg PO 05/25/18 Finasteride 5 mg PO 05/25/18 Fluticasone/Salmeterol [Advair 1 05/25/18 250-50 Diskus] Furosemide 20 mg 05/25/18 Isosorbide Mononitrate [Isosorbide 30 mg PO 05/25/18 Mononitrate ER] Lidocaine Patch 5% [Lidoderm Patch] 1 patch 05/25/18 Metoprolol Succinate 50 mg PO 05/25/18 Mexiletine HCl 150 mg 05/25/18 Oxycodone HCl/Acetaminophen 1 05/25/18 [Percocet 5-325 mg Tablet] Simvastatin 20 mg PO 05/25/18 oxyCODONE ER [OxyCONTIN] 10 mg 05/25/18 raNITIdine [Zantac] 150 mg 05/25/18 - Allergies Allergies/Adverse Reactions: Allergies Allergy/AdvReac Type Severity Reaction Status Date / Time No Known Drug Allergies Allergy Verified 03/09/19 13:28 - Social History Does the pt smoke?: No Smoking Status: Never smoker Does the pt drink ETOH?: No Does the pt have substance abuse?: No - Immunizations Immunizations are current?: Yes - POLST Patient has POLST: Yes PD ED PE NORMAL - Vitals Vital signs reviewed: Yes - General General: Alert and oriented X 3, No acute distress - HEENT HEENT: PERRL, EOMI - Neck Neck: Supple, no meningeal sign, No bony TTP - Cardiac Cardiac: RRR, No murmur - Respiratory Respiratory: No respiratory distress, Clear bilaterally - Abdomen Abdomen: Soft, Non tender - Back Back: No CVA TTP, No spinal TTP - Derm Derm: Normal color, Warm and dry - Extremities Extremities: No edema, No calf tenderness / cord - Neuro Neuro: Alert and oriented X 3, Normal speech Results - Vitals Vitals: Vital Signs - 24 hr 03/09/19 03/09/19 03/09/19 13:14 14:18 14:19 Temperature 36.5 C 36.8 C Heart Rate 66 60 Heart Rate [ 60 Sitting] Heart Rate [ 64 Standing] Heart Rate [ 60 60 Supine] Respiratory 13 18 Rate Blood Pressure 165/52 H 138/54 H Blood Pressure 122/47 L [Sitting] Blood Pressure 100/44 L [Standing] Blood Pressure 138/52 H 138/54 H [Supine] O2 Saturation 96 99 03/09/19 15:44 Temperature Heart Rate Heart Rate [ 60 Sitting] Heart Rate [ 59 L Standing] Heart Rate [ 60 Supine] Respiratory Rate Blood Pressure Blood Pressure 164/63 H [Sitting] Blood Pressure 182/76 H [Standing] Blood Pressure 122/50 L [Supine] O2 Saturation Oxygen O2 Source [With Activity] Room air O2 Source Room air - EKG (time done) 1326 Rate: Rate (enter#) (60) Rhythm: Paced (atrial) [place]: Normal Intervals: Normal MA QRS: Normal Ischemia: Q waves (III/F) Computer interpretation: Agree with computer - Labs Labs: Laboratory Tests 03/09/19 03/09/19 03/09/19 13:48 13:48 13:48 WBC 11.3 H RBC 4.63 L Hgb 13.7 L Hct 42.4 MCV 91.6 MCH 29.6 MCHC 32.3 RDW 12.9 Plt Count Not Reportable MPV 9.6 Neut # (Auto) 8.5 H Lymph # (Auto) 1.8 [place] # (Auto) 0.7 Eos # (Auto) 0.1 Baso # (Auto) 0.1 Absolute Nucleated RBC 0.00 Nucleated RBC % 0.0 Manual Slide Review Indicated Platelet Estimate NORMAL (130-450,000) Platelet Morphology PLATELET CLUMPING Sodium 135 Potassium 4.0 Chloride 99 L Carbon Dioxide 24 Anion Gap 12.0 BUN 20 Creatinine 1.0 Estimated GFR (MDRD) 72 L Glucose 99 Calcium 8.9 Total Bilirubin 1.0 AST 24 ALT 19 Alkaline Phosphatase 129 H Total Creatine Kinase 24 Troponin I High Sens 4.0 B-Natriuretic Peptide Total Protein 6.6 L Albumin 3.8 Globulin 2.8 Albumin/Globulin Ratio 1.4 Lipase 24 03/09/19 13:48 WBC RBC Hgb Hct MCV MCH MCHC RDW Plt Count MPV Neut # (Auto) Lymph # (Auto) [place] # (Auto) Eos # (Auto) Baso # (Auto) Absolute Nucleated RBC Nucleated RBC % Manual Slide Review Platelet Estimate Platelet Morphology Sodium Potassium Chloride Carbon Dioxide Anion Gap BUN Creatinine Estimated GFR (MDRD) Glucose Calcium Total Bilirubin AST ALT Alkaline Phosphatase Total Creatine Kinase Troponin I High Sens B-Natriuretic Peptide 223 H Total Protein Albumin Globulin Albumin/Globulin Ratio Lipase PD MEDICAL DECISION MAKING - ED course ED course: 84-year-old gentleman presents with a syncopal episode at the dentist office. He had just gotten bad news, so that is most consistent with a vagal episode. That said he was feeling dizzy even before he went there this morning. His examination now is normal but he does have very positive orthostatics going from about 150 systolic to 100 systolic from supine to standing. He has multiple reasons to be orthostatic including medications and potential dehydration. He received IV fluids and we will recheck his orthostatics after that. Still had a decent drop in his systolic blood pressure on orthostatics subsequent to 1 L of IV fluids. However he was not symptomatic which she had been prior. Offered more IV fluids but he would prefer to hydrate at home. Departure - Departure Disposition: Home, Self Care Clinical Impression: Orthostasis Condition: Good Record reviewed to determine appropriate education?: Yes Instructions: ED Hypotension Orthostatic Comments: Drink plenty fluids, follow-up with your doctor Thursday or Thursday for recheck and medication review. Return for new worsening symptoms.
[2019-03-09 13:59] LABS: BASOPHILS # (AUTO) 0.1 10^3/uL (0.0-0.1); BASOPHILS % (AUTO) 0.5 %; EOSINOPHILS # (AUTO) 0.1 10^3/uL (0.0-0.7); EOSINOPHILS % (AUTO) 1.2 %; HGB - HEMOGLOBIN 13.7 g/dL (14.0-18.0); LYMPHOCYTES # (AUTO) 1.8 10^3/uL (1.5-3.5); LYMPHOCYTES % (AUTO) 16.2 %; MEAN CORPUSCULAR HEMOGLOBIN 29.6 pg (27.0-31.0); MEAN CORPUSCULAR HGB CONC 32.3 g/dL (32.0-36.0); MEAN CORPUSCULAR VOLUME 91.6 fL (80.0-94.0); MEAN PLATELET VOLUME 9.6 fL (7.4-11.4); MONOCYTES # (AUTO) 0.7 10^3/uL (0.0-1.0); MONOCYTES % (AUTO) 6.4 %; NEUTROPHILS # (AUTO) 8.5 10^3/uL (1.5-6.6); NEUTROPHILS % (AUTO) 75.2 %; RED BLOOD COUNT 4.63 10^6/uL (4.70-6.10); RED CELL DISTRIBUTION WIDTH 12.9 % (12.0-15.0); WHITE BLOOD COUNT 11.3 x10^3/uL (4.8-10.8)
[2019-03-09 14:14] LABS: PLATELET MORPHOLOGY PLATELET CLUMPING (NORMAL)
[2019-03-09 14:15] LABS: PLATELET ESTIMATE, MANUAL NORMAL (130-450,000) (NORMAL)
[2019-03-09 14:16] LABS: ALBUMIN 3.8 g/dL (3.2-5.5); ALBUMIN/GLOBULIN RATIO 1.4 (1.0-2.2); CALCIUM 8.9 mg/dL (8.5-10.3); TOTAL PROTEIN 6.6 g/dL (6.7-8.2)
[2019-03-09] MEDS ORDERED: SODIUM CHLORIDE 0.9% 1,000 ML IV ONE (14:20)
[2019-03-09 15:45] VITALS: BP 122/50
== END 2019-03-09 16:09 | disposition home or self-care (01) ==
LOC: EDUNIT# → ED 13:12
DX: I95.1 Orthostatic hypotension (principal); J44.9 Chronic obstructive pulmonary disease, unspecified; Z95.810 Presence of automatic (implantable) cardiac defibrillator; I25.10 Atherosclerotic heart disease of native coronary artery without angina pectoris; I10 Essential (primary) hypertension; Z79.02 Long term (current) use of antithrombotics/antiplatelets
CPT/HCPCS: 36415; 80053; 82550; 83690; 83880; 84484; 85025; 93005; 96360; 96361; 99283

== ENCOUNTER 2021-01-01 20:12 | Outpatient (CLI) | payer MEDICARE, OTHER | END 2021-01-01 23:59 | disposition short-term general hospital (02) | LOC: EMS 20:12 | DX: R07.9 Chest pain, unspecified (principal) | CPT/HCPCS: A0425; A0429 ==

== ENCOUNTER 2021-07-02 20:08 | Outpatient (CLI) | payer MEDICARE, OTHER | END 2021-07-02 20:09 | disposition short-term general hospital (02) | LOC: EMS 20:08 | DX: Z04.3 Encounter for examination and observation following other accident (principal); M54.50 Low back pain, unspecified; G89.29 Other chronic pain | CPT/HCPCS: A0425; A0429 ==